=== PATIENT | male | born 1965 | race Caucasian/White ===

== ENCOUNTER 2024-11-18 10:17 | Outpatient (AMB) | payer BC, SELFPAY ==
--- NOTE | 2024-11-18 10:21 | MHC.OFFVIS ---
Vital Signs 11/18/24 10:23 Height 5 ft 11 in Weight 187 lb 2.759 oz BMI 26.1 BP 114/78 Blood Pressure Location Lt brachial Position Sitting Pulse 97 Pulse Source Pulse Oximeter Pulse Oximetry (%) 96 Oxygen Delivery Method Room Air Intake Visit Reasons: Hand arthritis Intake Note: medication not working( works in beginning but then wears offs) Allergies No Known Allergies Allergy (Verified 11/18/24 10:24) HPI HPI Hand arthritis: Details: He is having difficulty with writing. He has also having increased joint pains in his hands. He is using Celebrex 200 mg daily. [facility] Surgical History History of left knee replacement Physical Exam Vital Signs: Last Vital Signs Pulse 97 11/18/24 10:23 BP 114/78 11/18/24 10:23 Pulse Ox 96 11/18/24 10:23 Oxygen Delivery Method Room Air 11/18/24 10:23 BMI result Body Mass Index 26.1 Const Other: General: Comfortable Skin: No lesions seen MSK: Heberden nodes and Chaka's nodes present. He has squaring of CMCs. Tender PIP. He is able to make a fist with his hands. Assessment & Plan Assessment & Plan (1) Osteoarthritis of hands, bilateral: Comment: He is experiencing pain in hands and having difficulty with writing. He also has been experiencing lower back pain treated with cortisone injections without benefit. Code(s): M19.041 - Primary osteoarthritis, right hand; M19.042 - Primary osteoarthritis, left hand Category: Medical Qualifiers: Osteoarthritis type: primary Qualified Code(s): M19.041 - Primary osteoarthritis, right hand; M19.042 - Primary osteoarthritis, left hand Plan: Increase Celebrex 200 mg 2 twice a day Labs for drug monitoring on chronic NSAID ordered Return to clinic in 3 months Orders: Orders Creatinine Today M19.041 - Primary osteoarthritis, right hand, M19.042 - Primary osteoarthritis, left hand Aspartate Amino Transferase Today M19.041 - Primary osteoarthritis, right hand, M19.042 - Primary osteoarthritis, left hand Alanine Aminotransferase Today M19.041 - Primary osteoarthritis, right hand, M19.042 - Primary osteoarthritis, left hand Complete Blood Count Auto Diff Today M19.041 - Primary osteoarthritis, right hand, M19.042 - Primary osteoarthritis, left hand Coding Level of Care Code Est Pt Level 3 (12891) Complex EM visit Add On G2211 Diagnoses Primary osteoarthritis of both hands M19.041; M19.042 Osteoarthritis type: primary
[2024-11-18 10:23] VITALS: BP 114/78; PULSE 97; O2SAT 96; BMI 26.1
== END 2024-11-18 10:49 | disposition home or self-care (01) ==
PROVIDERS: PCP Internal Medicine; Visit Provider Internal Medicine Rheumatology
DX: M19.041 Primary osteoarthritis, right hand (principal); M19.042 Primary osteoarthritis, left hand
CPT/HCPCS: 99213

== ENCOUNTER 2024-11-18 10:17 | Outpatient (REF) | payer BC, SELFPAY ==
--- OUTSIDE RECORDS SUMMARY | 2024-11-18 12:41 | XMS_ITS | Data Portability ---
Author Organization [place] [facility] Sara Londono [place] Address [address] [place] [address] Care Team Providers Care Helicopter Pilot Name Role Phone ESTELA LOPEZ Primary Care Provider [phone] Assessment Encounter Date Assessment Date Assessment LastModified by Organization Details LastModified Time 08/18/2024 08/18/2024 HPI Patient returns to the office today for continued management of his. He reports minimal interval change in his symptoms. He continues to have focal left-sided low back and buttocks pain without radicular symptoms. This is predominantly activity related. He did recently have a knee injection and feels he is walking a bit better However this continues to be limited by discomfort with any increasing or prolonged activity. He Has remained out of work and feels he cannot return to work as his job though not particularly physically demanding Involves a great deal of walking which he cannot tolerate. MRI of the lumbar spine obtained 08/03/2024 reveals multilevel degenerative changes, most significant L3-L4 and L4-L5. Radiologist commented on severe spinal canal as well as foraminal stenosis at the L4-L5 level. EXAM Alert and oriented. Mood/affect appropriate. In no acute distress. He ambulates with a smooth even gait. He is comfortable in a seated position. Well-preserved strength of the bilateral lower extremities. Provocative SI joint tests: Negative pelvic compression, thigh thrust. Positive Evelio HOBSON's PLAN 59-year-old male with lumbar degenerative disc disease. He has well-preserved strength of bilateral lower extremities. He has focal left-sided back/SI joint pain. His condition is largely unchanged. In the absence of persistent back or leg pain, we will continue to defer surgical intervention. He would like to trial injection therapy. Lumbar versus diagnostic SI joint injections could be considered. He will follow-up with us in 2 months. Updated work status provided today. Patient was seen and evaluated by Nidia Burnett PA-C in indirect conjunction with Documenting Provider: Augusto Curtis MD He/She agrees with history, physical examination, tests/diagnostic imaging, and treatment plan. [email or web address] Not available 08/18/2024 10:25:10 08/20/2024 08/20/2024 HPI: Patient presents for 3rd viscosupplementation injection for the treatment of right knee pain. All questions are answered to the patient's satisfaction. He reports that his right knee has already begun to feel better. He still has some discomfort with overuse. Exam: Knee(s) examined to show no sign of infection. Skin is intact. Score of 2 or more on Kellgren Ye scale. Tenderness to palpation of joint line. Distal checks are intact. Assessment/Plan: Knee pain secondary to osteoarthritis. See the attached procedure note. Follow-up in 2 months for recheck. This patient was seen and evaluated by Levon Snowden MS, SANDRA in indirect conjunction with documenting/supervisin g provider Bo Herrera MD. He agrees with history, physical examination, tests/diagnostic imaging, and treatment plan. [email or web address] Not available 08/20/2024 10:43:07 09/15/2024 09/15/2024 59-year-old male status post TKA with Dr. Herrera on 12/13/2023 returns for evaluation of low back pain since approximately April 2024. He was referred to Dr. Rosenberg who is scheduling a lumbar RAFA for September 23, 2024. MRI of the lumbar spine obtained 08/03/2024 reveals multilevel degenerative changes, most significant L3-L4 and L4-L5. Radiologist commented on severe spinal canal as well as foraminal stenosis at the L4-L5 level. He is basically unchanged. He has back pain with leg fatigue when walking. His neurologic exam is unremarkable. He has no lower extremity weakness or tension sign. We discussed options. Will trial 1 or 2 epidural steroid injections. If that does not bring him relief we will have to choose between stoic forbearance or surgical intervention. He will follow-up in 6 weeks. He is given another light duty work note but his employer has been unable to accommodate these restrictions. ---- Return to work on 09/16/24 with the following light duty restrictions: No repetitive bending lifting twisting. No lifting greater than 10 pounds. Limit walking. Not available 09/15/2024 10:01:28 10/23/2024 10/23/2024 59-year-old male with right knee pain. History, examination and x-rays are consistent with advanced osteoarthritis. At present moment his symptoms are relatively improved following a series of Euflexxa viscosupplementation injections. There are some work and insurance considerations that he will have to factor in before deciding to proceed with joint arthroplasty. Follow-up in 4 months. This patient was seen and evaluated by Levon Snowden MS, PA-C in indirect conjunction with documenting/supervisin g provider Bo Herrera MD. He agrees with history, physical examination, tests/diagnostic imaging, and treatment plan. This document was generated using voice recognition software. As a result, there may be unintended spelling, grammatical and/or textual errors. [email or web address] Not available 10/23/2024 10:33:42 10/27/2024 10/27/2024 59-year-old male with known spinal stenosis returns for continued evaluation after a lumbarepidural steroid injection by Dr. Rosenberg on 09/23/2024. He is somewhat better. He still symptomatic with back pain and lower extremity pain with very much wants return to work. He is neurologically intact without tension sign. We discussed options. He will try and return to work. Will follow-up with me as per his request in 3 months to reassess whether or not he needs more invasive care wants to continue to stoically forbear his symptoms. Return to full-time full duty work starting 11/04/2024 This encounter required over 15 minutes of time including chart review, preparation, and documentation, face time with the patient as well as review of other documents and studies. follow up, 09-15-2024 2 month fu low back pain Performed by Augusto Curtis MD, Orthopedic Surgery, Reason for Visit Lumbar Pain Assessment & Plan 59-year-old male status post TKA with Dr. Herrera on 12/13/2023 returns for evaluation of low back pain since approximately April 2024. He was referred to Dr. Rosenberg who is scheduling a lumbar RAFA for September 23, 2024. MRI of the lumbar spine obtained 08/03/2024 reveals multilevel degenerative changes, most significant L3-L4 and L4-L5. Radiologist commented on severe spinal canal as well as foraminal stenosis at the L4-L5 level. He is basically unchanged. He has back pain with leg fatigue when walking. His neurologic exam is unremarkable. He has no lower extremity weakness or tension sign. We discussed options. Will trial 1 or 2 epidural steroid injections. If that does not bring him relief we will have to choose between stoic forbearance or surgical intervention. He will follow-up in 6 weeks. He is given another light duty work note but his employer has been unable to accommodate these restrictions. Not available 10/27/2024 10:39:13 Plan of Treatment Reminders Order Date Submit Date Provider Last Modified By Organization Details Last Modified Time Details Appointments FOLLOW UP 2024 08:45A Kandi SNOWDEN PA-C Not available Not available Not available FOLLOW UP 2024 10:00A M Augusto Curtis MD Not available Not available Not available FOLLOW UP 2024 09:15A M LEVON SNOWDEN PA-C Not available Not available Not available Lab None recorded. Referral intervent ional pain medicine specialis t referral - Lumbar versus diagnosti c SI joint injection 2023 [email or web address] Audrey Rosenberg MD, [address], [place], [address], 11/18/2024 09:05:56 Procedures None recorded. Surgeries None recorded. Imaging None recorded. Medication Orders Euflexxa 10 mg/mL (mw 2.4-3.6 million) intra-art icular syringe 2023 024 [email or web address] [id number], [address] [place], [place], [id number], 08/20/2024 10:55:30 Patient TargetsNo targets recorded. Patient Instructions Encounter Date Encounter Id Patient Instructions Last Modified By Organization Details Last Modified Time 08/18/2024 [id number] work status report* - Return to work on 08/19/24 with the following light duty restrictions: No repetitive bending lifting twisting. No lifting greater than 10 pounds. Limit walking. [email or web address] Not available 08/25/2024 08:44:17 09/15/2024 [id number] work status report* - Return to work on 09/16/24 with the following light duty restrictions: No repetitive bending lifting twisting. No lifting greater than 10 pounds. Limit walking. [email or web address] Not available 09/22/2024 07:58:56 10/27/2024 [id number] work status report* - Return to work on 11/04/2024 [email or web address] Not available 11/03/2024 11:16:45 Reason for Referral Interventional Pain Medicine Specialist Referral for Lumbar spondylosis Lumbar versus diagnostic SI joint injection Referring Physician: Nidia Burnett, Orthopedic Surgery, Encounter Date: 08/18/2024 Results Created Date Observation Date Name Description Value Unit Range Abnormal Flag Note LastModifiedBy Organization Detail LastModifiedTime 08/18/20 24 08/03/2024 MRI, lumba r spine , w/o contr ast No observ ation record ed. [facility] [address] [place], [address], 08/18/2024 10:01:18 08/18/2008/05/2024 MRI, lumba r spine , w/o contr ast No observ ation record ed. [facility] [address] [place], [address], 08/18/2024 10:07:26 Result Notes None recorded. Problems Name Problem SNOMED Code Status Onset Date Resolution Date Notes Provider Name and Address Organization Details Recorded Time Pain of right calf 4619831893379 103 Active 2022 LEVON MARTINEZ PA-C [address] [facility] [address], [place], [address] , [place] [facility] 08:37:18 Osteoarthr itis of left knee joint 0718579622374 09 Active 2022 LEVON MARTINEZ PA-C [address], [place], [place], [address] , [place] [facility] 06:42:48 Arthritis of knee 946123634 Active 2022 Bo Herrera MD [address], [place], [address] , [place] [facility] 09:27:54 Bilateral arthritis of knees 0547405216382 108 Active 2022 LEVON MARTINEZ PA-C [address], [place], [place], [address] , [place] [facility] 08:28:12 Effusion of joint of right knee 6473700018401 04 Active 2022 LEVON MARTINEZ PA-C [address], [place], [place], [address] , [place] [facility] 10:51:12 Effusion of joint 467941465 Active 2022 LEVON MARTINEZ PA-C [address], [place], [place], [address] , [place] [facility] 10:52:27 Arthritis of left knee 8994090350108 104 Active 2023 LEVON SNOWDEN PA-C [address], [place], [address] , [place] [facility] 4 10:29:56 History of left total knee replacemen t 9067998122144 105 Active 2023 LEVON SNOWDEN PA-C [address], [place], [place], [address] , [place] [facility] 10:58:44 Acute low back pain 621603566 Active 2023 Augusto Curtis MD [address], [place], [address] , [place] [facility] 16:08:58 Lumbar spondylosi s 629053653 Active 2023 Augusto Curtis MD [address], [place], [address] , [place] [facility] 11:50:58 Sacroiliac disorder 834459189 Active 2023 NIDIA BURNETT PA-C [address], [place], [address] , [place] [facility] 4 10:25:18 Spinal stenosis of lumbar region 56304597 Active 2023 Augusto Curtis MD [address], [place], [address] , [place] [facility] 10:00:10 Osteoarthr itis of right knee joint 5122760135196 00 Active 2022 LEVON SNOWDEN PA-C [address] [address], [place], [address] , [place] [facility] 10:32:13 Bilateral osteoarthr itis of knees 1116377654842 07 Active 2022 Not Available [facility] 3 11:40:46 Problem Notes None recorded. Procedures Surgical History Date Name Laterality Status Provider Name and Address Organization Details Recorded Time 08/20/20 24 Euflexxa Knee Inj w/US completed LEVON SNOWDEN PA-C [address], [place], [address], [place] [facility] 08/20/2024 10:42:28 08/13/20 24 Euflexxa Knee Inj w/US completed LEVON SNOWDEN PA-C [address], [place], [address], [place] [facility] 08/13/2024 10:32:48 08/06/20 24 Euflexxa Knee Inj w/US completed LEVON SNOWDEN PA-C [address], [place], [address], [place] [facility] 08/06/2024 10:31:59 11/15/19 24 Euflexxa Knee Inj completed Rosalina Marin [place] [facility] 11/15/2023 09:57:04 11/07/20 23 Euflexxa Knee Inj completed BARBARA GUERRA PA-C [address], [place], [address], [place] [facility] 11/07/2023 16:05:37 10/31/20 23 Euflexxa Knee Inj completed LEVON MARTINEZ PA-C [address], [place], [address], [place] [facility] 10/31/2023 10:45:30 09/27/20 23 Knee Joint/Bursa Asp & Inj completed LEVON MARTINEZ PA-C [address], [place], [address], [place] [facility] 10/01/2023 09:18:27 04/30/20 23 Euflexxa Knee Inj completed LEVON MARTINEZ PA-C [address], [place], [address], [place] [facility] 04/30/2023 07:20:21 04/23/20 23 Euflexxa Knee Inj completed LEVON MARTINEZ PA-C [address], [place], [address], [place] [facility] 04/23/2023 11:07:50 04/16/20 23 Euflexxa Knee Inj completed LEVON MARTINEZ PA-C [address], [place], [address], [place] [facility] 04/16/2023 08:54:09 repair of musculotendinous cuff of shoulder completed Rosalina Marin [place] [facility] 09/27/2023 10:40:22 Imaging Results Imaging Date Name Status LastModified by Kevin lopez Details LastModified Time 08/03/2024 MRI, lumbar spine, w/o contrast completed [facility] [address] [place], [address], 08/18/2024 10:01:18 08/05/2024 MRI, lumbar spine, w/o contrast completed [facility] [address] [place], [address], 08/18/2024 10:07:26 Procedure Notes None recorded. Medical Equipment None Reported. Allergies No known drug allergies Medications Name Sig Start Date Stop Date Status Note LastModified by Organization Details LastModified Time Prescriptio n - Prior Authorizati on Request active Not Available Not Available N ot Available celecoxib 200 mg capsule TAKE 1 CAPSULE BY MOUTH TWICE A DAY 08/13 completed Not Available Not Available Not Available atorvastati n 40 mg tablet TAKE 1 TABLET BY MOUTH AT BEDTIME active Not Available Not Available No t Available prednisone 10 mg tablet PLEASE SEE ATTACHED FOR DETAILED DIRECTION S 01/17 completed Not Available Not Available Not Available cetirizine 10 mg tablet TAKE 1 TABLET BY MOUTH EVERY DAY 01/17 completed Not Available Not Available Not Available tizanidine 4 mg tablet TAKE 1 TABLET BY MOUTH EVERY NIGHT AT BEDTIME NEEDED FOR PAIN OR SPASM 08/18 completed Not Available Not Available Not Available meloxicam 15 mg tablet TAKE 1 TABLET BY MOUTH EVERY DAY WITH FOOD 10/10 completed Not Available Not Available Not Available ondansetron HCl 4 mg tablet 01/17 completed Not Available Not Available Not Available cefadroxil 500 mg capsule 01/17 completed Not Available Not Available Not Available losartan 100 mg-hydrochl orothiazide 25 mg tablet TAKE 1 TABLET BY MOUTH EVERY DAY active Not Available Not Available No t Available amoxicillin 875 mg tablet TAKE 1 TABLET BY MOUTH TWICE A DAY DIRECTED UNTIL FINISHED START 1 DAY BEFORE SURGERY 01/17 completed Not Available Not Available Not Available famotidine 20 mg tablet TAKE 1 TABLET BY MOUTH TWICE A DAY 01/17 completed Not Available Not Available Not Available methocarbam ol 750 mg tablet 01/17 completed Not Available Not Available Not Available hydrocortis one 1 % topical cream APPLY TO AFFECTED AREA TWICE A DAY 01/17 completed Not Available Not Available Not Available pantoprazol e 40 mg tablet,dilcia yed release active Not Available Not Available Not Available nicotine 21 mg/24 hr daily transdermal patch APPLY 1 PATCH TOPICALLY ONCE DAILY active Not Available Not Available No t Available gabapentin 300 mg capsule active Not Available Not Available Not Available methylpredn isolone 4 mg tablets in a dose pack FOLLOW PACKAGE DIRECTION S 08/18 completed Not Available Not Available Not Available oxycodone 5 mg tablet TAKE 1 TABLET BY MOUTH EVERY 4 TO 6 HOURS 08/18 completed Not Available Not Available Not Available chlorhexidi ne gluconate 0.12 % mouthwash PLEASE SEE ATTACHED FOR DETAILED DIRECTION S 09/27 completed Not Available Not Available Not Available Euflexxa 10 mg/mL (mw 2.4-3.6 million) intra-artic ular syringe Inject 2 mL by intra-art icular route for 21 days. 2023 active Not Available Not Available Not Avai lable GaviLyte-G 236 gram-22.74 gram-6.74 gram-5.86 gram oral solution TAKE 8 OUNCES BY MOUTH DIRECTED. FOLLOW INSTRUCTI ONS PROVIDED TO YOU BY DOCTORS OFFICE 08/13 completed Not Available Not Available Not Available Paxlovid 300 mg (150 mg x 2)-100 mg tablets in a dose pack 10/31 completed Not Available Not Available Not Available Vitals Date Recorded Body height Body mass index (BMI) Body weight Provider Name and Address Organization Details Last Updated DateTime 08/18/2024 177.8 cm 26.4 kg/m2 [address] [place] [facility] 08/18/2024 09:48:28 Date Recorded Body height Body mass index (BMI) Body weight Provider Name and Address Organization Details Last Updated DateTime 09/15/2024 177.8 cm 26.4 kg/m2 [address] [place] [facility] 09/15/2024 09:50:13 Date Recorded Body height Body mass index (BMI) Body weight Provider Name and Address Organization Details Last Updated DateTime 10/23/2024 177.8 cm 26.4 kg/m2 [address] [place] [facility] 10/23/2024 11:25:34 Social History Question Answer Notes LastModified by Organizat ion Details LastModified Time Tobacco Smoking Status Current Every Day Smoker Rosalina Marin null, [place] [facility] 09/27/2023 10:23:41 What Is Your Level Of Alcohol Consumption? Occasional Information not available 09/27/2023 How Many Times Per Week Do You Consume Alcohol? 1-2 Times Per Week Information not available 09/27/2023 How Much Tobacco Do You Smoke? 1 PPD Information not available 09/27/2023 Do You Use Any Illicit Or Recreational Drugs? No Information not available 09/27/2023 Do You Or Have You Ever Used Any Other Forms Of Tobacco Or Nicotine? No Information not available 09/27/2023 Sex: Unknown Functional Status None recorded. Mental Status None recorded. Family History Relationship Description Onset Age of this Age Resolved Age Notes LastModified by Organization Details LastModified Time Mother Arthritis Not available 09/27/2023 10:28:20 Mother Hypercholest erolemia Not available 2022 10:39:36 Father Arthritis Not available 09/27/2023 10:28:20 Father Family history of malignant neoplasm Not available 2022 10:39:24 Father Hypercholest erolemia Not available 2022 10:39:36 Brother Arthritis Not availabl e 09/27/2023 10:28:20 Medical History Condition Response Heart Disease Y Past Encounters Encounter ID Performer Location Encounter Start Date Encounter Closed Date Diagnosis/Indication Diagnosis SNOMED-CT Code Diagnosis ICD10 Code Diagnosis Note [id number] MD RUTHIE Mota [address] [address] 02/20/2023 15:28:55 03/12/2023 20:12:36 Pain of bilateral knee joints 9305854710 14644 M25.561 M25.562 [id number] MD RUTHIE Mota 299 [facility] [address] [place] [address] 04/16/2023 08:28:24 04/16/2023 09:11:47 Bilateral osteoarthritis of knees 1080674881 84809 M17.0 Osteoarthr itis of right knee joint 9263434143 07180 M17.11 [id number] MD RUTHIE Mota [address] [place] [address] 04/23/2023 13:01:02 04/23/2023 13:52:24 Osteoarthritis of right knee joint 9505124951 98175 M17.11 Bilateral osteoarthritis of knees 4128862749 72401 M17.0 [id number] MD [facility]IE [facility] [address] [place] [address] 04/30/2023 08:12:28 04/30/2023 08:58:35 Osteoarthritis of right knee joint 8807442629 05689 M17.11 Bilateral osteoarthritis of knees 1354205827 51907 M17.0 Pain of right calf 68101 03383 196416 M79.661 [id number] MD RUTHIE [facility]otaformerly [facility] [address] [place] [address] 05/11/2023 10:38:03 05/11/2023 10:57:40 Bilateral osteoarthritis of knees 1882827022 44395 M17.0 Osteoarthr itis of right knee joint 8796353819 61028 M17.11 [id number] MD RUTHIE [facility]otaformerly [facility] [address] [place] [address] 06/12/2023 08:56:41 06/12/2023 09:13:10 Osteoarthritis of right knee joint 1996074031 11049 M17.11 Osteoarthr itis of left knee joint 6681186128 06417 M17.12 [id number] MD RUTHIE [facility]formerly [facility] [address] [place] [address] 06/22/2023 08:40:18 06/22/2023 09:37:48 Pain of left knee joint 3639445605 36702 M25.562 Osteoarthr itis of left knee joint 3972405070 78052 M17.12 Arthritis of knee 570929 002 M13.869 [id number] MD RUTHIE Motadanny [address] [place] [address] 07/24/2023 10:54:05 07/24/2023 11:46:59 Bilateral arthritis of knees 3247706864 665271 M13.861 [id number] MD RUTHIE MotaDreamscape Bluedanny 299 [facility] [address] [place] [address] 09/27/2023 09:55:10 09/27/2023 11:00:23 Osteoarthritis of right knee joint 5690318168 51894 M17.11 Effusion o f joint of right knee 5988308147 93805 M25.461 Right knee effusion Effusion of joint 308383 008 M25.40 [id number] MD RUTHIE Motadanny 299 [facility] [address] [place] [address] 10/10/2023 09:55:43 10/10/2023 10:38:36 Follow-up visit [id number] Z09 [id number] MD RUTHIE [facility] 299 [facility] [address] [place] [address] 10/31/2023 10:23:54 10/31/2023 10:57:26 Osteoarthritis of right knee joint 6026932440 26802 M17.11 [id number] MD RUTHIE Mota [address] [place] [address] 11/07/2023 13:41:50 11/07/2023 14:38:34 Osteoarthritis of right knee joint 9967632506 41415 M17.11 [id number] MD RUTHIE [facility] [address] [place] [address] 11/15/2023 09:53:38 11/15/2023 10:33:11 Osteoarthritis of right knee joint 5419037279 63290 M17.11 [id number] MD RUTHIE [address] [address] 12/06/2023 08:19:51 12/06/2023 14:21:42 Arthritis of left knee 7483499840 673974 M13.862 [id number] MD RUTHIE Motadanny becerra 299 [facility] [address] [place] [address] 12/27/2023 10:15:44 12/27/2023 11:13:58 History of left total knee replacement 8788419599 717812 Z96.652 [id number] MD RUTHIE Mota [facility] [address] [place] [address] 01/18/2024 09:08:22 01/18/2024 09:50:44 Aftercare 415911861 Z47.1 History of left total knee replacement 5630579831 957919 Z96.652 [id number] MD RUTHIE Mota [facility] 299 [facility] [address] [place] [address] 03/20/2024 09:46:35 03/20/2024 10:12:09 History of left total knee replacement 9807053451 164683 Z96.652 [id number] MD RUTHIE Mota [facility] [address] [place] [address] 05/02/2024 09:10:54 05/02/2024 10:11:48 Osteoarthritis of right knee joint 1600503994 43760 M17.11 [id number] Augusto Curtis MD [address] [address] 05/26/2024 15:45:24 05/26/2024 16:17:50 Acute low back pain 340993161 M54.50 Additional diagnosis detail: Acute bilateral low back pain without sciatica [id number] Augusto Curtis MD [address] [address] 06/09/2024 11:14:38 06/09/2024 11:57:31 Acute low back pain [id number] M54.50 Additional diagnosis detail: Acute bilateral low back pain without sciatica History of left total knee replacement [id number] 991988 Z96.652 Lumbar spondylosis 23371 0009 M47.816 [id number] Augusto Curtis MD [address] [address] 07/21/2024 11:17:50 07/21/2024 11:40:02 Acute low back pain 373875190 M54.50 Additional diagnosis detail: Acute bilateral low back pain without sciatica History of left total knee replacement [id number] 408329 Z96.652 Lumbar spondylosis 00582 0009 M47.816 [id number] MD RUTHIE Mota [address] [place] [email or web address] [facility] [place] [address] 08/06/2024 10:09:25 08/06/2024 10:30:42 Osteoarthritis of right knee joint 1744273063 78634 M17.11 Osteoarthr itis of knee 675922164 M17.9 [id number] MD RUTHIE Mota [address] [facility] [place] [address] 08/13/2024 09:53:51 08/13/2024 10:32:35 Osteoarthritis of right knee joint 8304975098 01809 M17.11 [id number] MD COLLINS Alford[address] [address] 08/18/2024 09:47:17 08/18/2024 10:22:19 Acute low back pain 136652052 M54.50 Additional diagnosis detail: Acute bilateral low back pain without sciatica History of left total knee replacement 9613319402 704555 Z96.652 Lumbar spondylosis 21330 0009 M47.816 Sacroiliac disorder 2027 89862 M53.3 [id number] MD RUTHIE Mota 35 [place] [address] 08/20/2024 10:31:21 08/20/2024 10:43:36 Osteoarthritis of right knee joint 2322853549 03639 M17.11 [id number] MD RUTHIE Alford [address] [place] [address] 09/15/2024 09:47:20 09/15/2024 10:03:14 Spinal stenosis of lumbar region 32508935 M48.062 [id number] MD RUTHIE Motadanny becerra 299 [facility] [address] [place] [address] 10/23/2024 10:11:40 10/23/2024 11:23:45 Osteoarthritis of right knee joint 9521854344 30378 M17.11 [id number] MD RUTHIE Alford [place] [address] [facility] [address] [place] [address] 10/27/2024 10:20:29 10/27/2024 10:39:11 Spinal stenosis of lumbar region 58561675 M48.062 Return to full-time full duty work starting 11/04/2024 Health Concerns Section Related Observation LastModified by Organization Detai ls LastModified Time None Recorded Concern Status LastModified by Organization Details LastModified Time None Recorded Advance Directives Directive None Recorded Payers Encounter Date Sequence Insurance Name Policy Number Policy Conway Covered Member ID Conway Member ID Guarantor Name 08/18/2024 1 [place] [id number] Leon Chau Hathaway [id number] Leon Hathaway 08/20/2024 1 [place] [id number] Leon Soira [id number] Leon Hathaway 09/15/2024 1 [place] [id number] Leon Chau Hathaway [id number] Leon Hathaway 10/23/2024 1 [place] [id number] Leon Chau Hathaway [id number] Leon Hathaway 10/27/2024 1 [place] [id number] Leon Chau Hathaway [id number] Leon Hathaway Notes Date Note Type Note Provider Name and Address Organization Details Recorded Time 10/23/2024 text/html 59-year-old male presents for recheck of right knee. His final Euflexxa injection was on August 20, 2024. He reports that it has helped to reduce the severity of his pain down to a manageable degree. He recognizes that he will likely require total joint arthroplasty but is inclined to coexist with his persistent and remaining symptoms at this time. LEVON SNOWDEN PA-C [address] [place] [address],[facility] [address], [place], [address], [place] [facility] 10/23/2024 10:33:59
--- OUTSIDE RECORDS SUMMARY | 2024-11-18 12:41 | XMS_ITS | Continuity of Care Document ---
Author Organization [place] [facility] Sara Londono AONE Baldwyn Address [address] [place] [address] Care Team Providers Care Esl Teacher Name Role Phone ESTELA LOPEZ Primary Care Provider Assessment Encounter Date Assessment Date Assessment LastModified by Organization Details LastModified Time 08/20/2024 08/20/2024 HPI: Patient presents for 3rd [...] treatment plan. [email or web address] Not available 08/20/2024 10:43:07 Plan of Treatment Reminders Order Date Submit Date Provider Last Modified By Organization Details Last Modified Time Details Appointments FOLLOW UP 2024 08:45A M LEVON SNOWDEN PA-C Not available Not available Not available FOLLOW UP 2024 10:00A M Augusto Curtis MD Not available Not available Not available FOLLOW UP 2024 09:15A M LEVON SNOWDEN PA-C Not available Not available Not available Lab None recorded. Referral None recorded. Procedures None recorded. Surgeries None recorded. Imaging None recorded. Medication Orders Euflexxa 10 mg/mL (mw 2.4-3.6 million) intra-art icular syringe 2023 024 [email or web address] [id number], [address] Brittani Cumm[place], [id number], 08/20/2024 10:55:30 Patient TargetsNo targets recorded. Patient InstructionsNo instructions recorded. Reason for Referral None Reported. Results Created Date Observation Date Name Description Value Unit Range Abnormal Flag Note LastModifiedBy Organization Detail LastModifiedTime 08/18/20 24 08/03/2024 MRI, lumba r spine , w/o contr ast No observ ation record ed. [facility] Mri Department [address] [place], [address], 08/18/2024 10:01:18 08/18/20 24 08/05/2024 MRI, lumba r spine , w/o contr ast No observ ation record ed. [facility]ri Department [address] [place], [address], 08/18/2024 10:07:26 Result Notes None recorded. Problems Name Problem SNOMED Code Status Onset Date Resolution Date Notes Provider Name and Address Organization Details Recorded Time Pain of right calf [id number] 103 Active 2022 LEVON MARTINEZ PA-C [address] [facility],[address], [place], [address] , [place] [facility] 3 08:37:18 Osteoarthr itis of left knee joint 1945490292124 09 Active 2022 LEVON MARTINEZ PA-C [address] [facility],[address], [place], [address] , [place] [facility], [facility] 3 06:42:48 Arthritis of knee 929310709 Active 2022 Bo Herrera MD [address] [facility],[address], [place], [address] , [place] [facility], [facility] 3 09:27:54 Bilateral arthritis of knees 0430946538777 108 Active 2022 LEVON MARTINEZ PA-C [address], [place], [address] , [place] [facility], [facility] 3 08:28:12 Effusion of joint of right knee 6805667668899 04 Active 2022 LEVON MARTINEZ PA-C [address], [place], [place], [address] , [place] [facility], [facility] 3 10:51:12 Effusion of joint 305569278 Active 2022 LEVON MARTINEZ PA-C [address], [place], [place], [address] , [place] [facility], [facility] 3 10:52:27 Arthritis of left knee 4880694911066 104 Active 2023 LEVON SNOWDEN PA-C [address], [place], [address] , [place] [facility], [facility] 4 10:29:56 History of left total knee replacemen t 6019195602433 105 Active 2023 LEVON SNOWDEN PA-C [address], [place], [place], [address] , [place] [facility], [facility] 4 10:58:44 Acute low back pain 045897475 Active [address], [place], [address] , [place] [facility], [facility] 4 16:08:58 Lumbar spondylosi s 129553600 Active [address], [place], [address] , [place] [facility], [facility] 4 11:50:58 Sacroiliac disorder 682588475 Active [address], [place], [address] , [place] [facility], [facility] 4 10:25:18 Spinal stenosis of lumbar region 53053064 Active 2023 Augusto Curtis MD [address], [place], [address] , [place] [facility], [facility] 4 10:00:10 Osteoarthr itis of right knee joint 6436310177401 00 Active 2022 LEVON SNOWDEN PA-C [address] [facility],[address], [place], [address] , [place] [facility], [facility] 4 10:32:13 Bilateral osteoarthr itis of knees 0869232607329 07 Active 2022 [facility] Available [facility] 11:40:46 Problem Notes None recorded. Procedures Surgical History Date Name Laterality Status Provider Name and Address Organization Details Recorded Time 08/20/20 24 Euflexxa Knee Inj w/US completed LEVON SNOWDEN PA-C [address], [place], [address], [place] [facility], [facility] 08/20/2024 10:42:28 08/13/20 24 Euflexxa Knee Inj w/US completed LEVON SNOWDEN PA-C [address], [place], [address], [place] [facility], [facility] 08/13/2024 10:32:48 08/06/20 24 Euflexxa Knee Inj w/US completed LEVON SNOWDEN PA-C [address], [place], [address], [place] [facility], [facility] 08/06/2024 10:31:59 11/15/19 24 Euflexxa Knee Inj completed Rosalina Marin [place] - [facility], [facility] 11/15/2023 09:57:04 11/07/20 23 Euflexxa Knee Inj completed BARBARA GUERRA PA-C [address], [place], [address], [place] [facility], [facility] 11/07/2023 16:05:37 10/31/20 23 Euflexxa Knee Inj completed LEVON MARTINEZ PA-C [address], [place], [address], [place] [facility], [facility] 10/31/2023 10:45:30 09/27/20 23 Knee Joint/Bursa Asp & Inj completed LEVON MARTINEZ PA-C [address], [place], [address], [place] [facility], [facility] 10/01/2023 09:18:27 04/30/20 23 Euflexxa Knee Inj completed LEVON MARTINEZ PA-C [address], [place], [address], [place] [facility], [facility] 04/30/2023 07:20:21 04/23/20 23 Euflexxa Knee Inj completed LEVON MARTINEZ PA-C [address], [place], [address], [place] [facility], [facility] 04/23/2023 11:07:50 04/16/20 23 Euflexxa Knee Inj completed LEVON MARTINEZ PA-C [address], [place], [address], [place] [facility], [facility] 04/16/2023 08:54:09 repair of musculotendinous cuff of shoulder completed Rosalina Marin [place] - [facility], [facility] 09/27/2023 10:40:22 Imaging Results None recorded. Procedure Notes None recorded. Medical Equipment None [...] Not Available Not Available Not Available Vitals None Recorded Social History Question Answer Notes LastModified by Organizat ion Details LastModified Time Tobacco Smoking Status Current Every Day Smoker Rosalina Marin [place], [place] - [facility], [facility] 09/27/2023 10:23:41 What Is Your Level [...] SNOMED-CT Code Diagnosis ICD10 Code Diagnosis Note [id number] Augusto Curtis MD [address] [address] 07/21/2024 11:17:50 07/21/2024 11:40:02 Acute low back pain 398706932 M54.50 Additional diagnosis detail: Acute bilateral low back pain without sciatica History of left total knee replacement 7760317955 952641 Z96.652 Lumbar spondylosis 58043 0009 M47.816 [id number] MD RUTHIE Mota [address] [place] [address] 08/06/2024 10:09:25 08/06/2024 10:30:42 Osteoarthritis of right knee joint 1268804627 26000 M17.11 Osteoarthr itis of knee 305186263 M17.9 [id number] MD RUTHIE Mota [address] [place] [address] 08/13/2024 09:53:51 08/13/2024 10:32:35 Osteoarthritis of right knee joint 4025985428 93610 M17.11 [id number] MD RUTHIE Alford [address] [place] [address] 08/18/2024 09:47:17 08/18/2024 10:22:19 Acute low back pain 071260626 M54.50 Additional diagnosis detail: Acute bilateral low back pain without sciatica History of left total knee replacement 2052424891 196381 Z96.652 Lumbar spondylosis 24941 0009 M47.816 Sacroiliac disorder 2027 11105 M53.3 [id number] MD RUTHIE Mota [address] [place] [address] 08/20/2024 10:31:21 08/20/2024 10:43:36 Osteoarthritis of right knee joint 1526020822 56216 M17.11 Health Concerns Section Related Observation LastModified by Organization Detai ls LastModified Time None Recorded Concern Status LastModified by Organization Details LastModified Time None Recorded Payers Encounter Date Sequence Insurance Name Policy Number Policy Conway Covered Member ID Conway Member ID Guarantor Name 08/20/2024 1 [place] ([place]) [id number] Leon Hathaway [id number] Leon Hathaway
--- OUTSIDE RECORDS SUMMARY | 2024-11-18 12:41 | XMS_ITS ---
Author Name [facility] Organization Unknown History of Medication Use Medication Directions Dispensed Refills Start Date End Date Status gabapentin 300 mg capsule 11/11/99 active celecoxib (CeleBREX) 200 mg capsule Take 1 capsule (200 mg total) by mouth 1 (one) time each day if needed. 4 11/11/99 active turmeric/turmeric ext/pepr ext (turmeric-turmeric ext-pepper) 500-3 mg capsule Take 1 tablet by mouth 1 (one) time each day. 4 11/11/99 active nicotine (NICODERM CQ) 21 mg/24 hr APPLY 1 PATCH TOPICALLY ONCE DAILY 4 11/11/99 active tiZANidine (ZANAFLEX) 4 mg tablet TAKE 1 TABLET BY MOUTH EVERY NIGHT AT BEDTIME NEEDED FOR PAIN OR SPASM 4 11/11/99 aborted pantoprazole (PROTONIX) 40 mg EC tablet 4 11/11/99 active ibuprofen (ADVIL,MOTRIN) 200 mg tablet Take by mouth every 6 (six) hours if needed. 11/11/99 active gabapentin (NEURONTIN) 300 mg capsule Take 1 capsule (300 mg total) by mouth 3 (three) times a day. 4 11/11/99 active losartan-hydroCHLOROthi azide (HYZAAR) 100-25 mg per tablet Take 1 tablet by mouth 1 (one) time each day. 11/11/99 active methocarbamoL (ROBAXIN) 750 mg tablet 4 11/11/99 aborted atorvastatin (LIPITOR) 40 mg tablet Take 1 tablet (40 mg total) by mouth 1 (one) time each day. 4 11/11/99 99 active No known medications No known medications 4 11/11/99 active senna-docusate (PERICOLACE) 8.6-50 MG Take 1 tablet by mouth 2 (two) times a day. 4 11/11/99 99 aborted methocarbamol (ROBAXIN) 750 MG tablet Take 1 tablet (750 mg total) by mouth 3 (three) times a day as needed. 4 11/11/99 99 aborted ondansetron (Zofran) 4 MG tablet Take 1 tablet (4 mg total) by mouth daily as needed. 4 11/11/99 99 aborted aspirin 81 MG EC tablet Take 1 tablet (8 1 mg total) by mouth 2 (two) times a day after meals. 4 11/11/99 99 aborted cefadroxil (DURICEF) 500 MG capsule Take 1 capsule (500 mg total) by mouth 2 (two) times a day. 4 11/11/99 99 aborted oxyCODONE (ROXICODONE) 5 MG immediate release tablet Take 1 tablet (5 mg total) by mouth every 4 (four) hours as needed. 4 11/11/99 99 aborted hydrocortisone 1 % cream 2 (two) times a day as needed. 4 11/11/99 99 active acetaminophen (TYLENOL EXTRA STRENGTH) 500 MG tablet Take 2 tablets (1,000 mg total) by mouth every 8 (eight) hours. 4 11/11/99 99 aborted ondansetron HCl 4 mg tablet 4 completed cefadroxil 500 mg capsule 4 completed pantoprazole 40 mg tablet,delayed release 4 active tizanidine 4 mg tablet TAKE 1 TABLET BY MOUTH EVERY NIGHT AT BEDTIME NEEDED FOR PAIN OR SPASM 4 active methocarbamol 750 mg tablet 4 completed oxycodone 5 mg tablet TAKE 1 TABLET BY MOUTH EVERY 4 TO 6 HOURS 4 active prednisone 10 mg tablet PLEASE SEE ATTACHED FOR DETAILED DIRECTIONS 3 completed ondansetron HCl 4 mg tablet 4 completed nicotine 21 mg/24 hr daily transdermal patch APPLY 1 PATCH TOPICALLY ONCE DAILY 3 active celecoxib (CeleBREX) 200 MG capsule Take 1 capsule (200 mg total) by mouth daily. 4 active atorvastatin 40 mg tablet TAKE 1 TABLET BY MOUTH AT BEDTIME 3 active cetirizine 10 mg tablet TAKE 1 TABLET BY MOUTH EVERY DAY 3 completed chlorhexidine gluconate 0.12 % mouthwash PLEASE SEE ATTACHED FOR DETAILED DIRECTIONS 3 completed methocarbamol 750 mg tablet 4 completed GaviLyte-G 236 gram-22.74 gram-6.74 gram-5.86 gram oral solution TAKE 8 OUNCES BY MOUTH DIRECTED. FOLLOW INSTRUCTIONS PROVIDED TO YOU BY DOCTORS OFFICE 3 active Euflexxa 10 mg/mL (mw 2.4-3.6 million) intra-articular syringe Inject 2 mL by intra-articular route for 21 days. 3 active Turmeric 500 MG CAPS Take 1 tablet by mouth daily. 4 active atorvastatin 40 mg tablet TAKE 1 TABLET BY MOUTH AT BEDTIME 3 active oxycodone 5 mg tablet TAKE 1 TABLET BY MOUTH EVERY 4 TO 6 HOURS 4 active chlorhexidine gluconate 0.12 % mouthwash PLEASE SEE ATTACHED FOR DETAILED DIRECTIONS 3 completed Prescription - Change 3 active famotidine 20 mg tablet TAKE 1 TABLET BY MOUTH TWICE A DAY 3 completed meloxicam 15 mg tablet TAKE 1 TABLET BY MOUTH EVERY DAY WITH FOOD 3 completed hydrocortisone 1 % topical cream APPLY TO AFFECTED AREA TWICE A DAY 3 active cefadroxil 500 mg capsule 4 completed celecoxib 200 mg capsule TAKE 1 CAPSULE BY MOUTH TWICE A DAY WITH FOOD. REPLACES MELOXICAM. 3 active prednisone 10 mg tablet PLEASE SEE ATTACHED FOR DETAILED DIRECTIONS 3 active amoxicillin 875 mg tablet TAKE 1 TABLET BY MOUTH TWICE A DAY DIRECTED UNTIL FINISHED START 1 DAY BEFORE SURGERY 3 completed famotidine 20 mg tablet TAKE 1 TABLET BY MOUTH TWICE A DAY 3 active meloxicam 15 mg tablet TAKE 1 TABLET BY MOUTH EVERY DAY WITH FOOD 3 completed losartan-hydrochlorothi azide (HYZAAR) 100-25 MG per tablet Take 1 tablet by mouth daily. 4 active hydrocortisone 1 % cream 2 (two) times a day as needed. 4 active losartan 100 mg-hydrochlorothiazide 25 mg tablet TAKE 1 TABLET BY MOUTH EVERY DAY 3 active atorvastatin (LIPITOR) tablet 40 mg Take 1 tablet (40 mg total) by mouth daily. 4 active hydrocortisone 1 % topical cream APPLY TO AFFECTED AREA TWICE A DAY 3 completed nicotine 21 mg/24 hr daily transdermal patch APPLY 1 PATCH TOPICALLY ONCE DAILY 3 active pantoprazole 40 mg tablet,delayed release 4 active cetirizine 10 mg tablet TAKE 1 TABLET BY MOUTH EVERY DAY 3 active GaviLyte-G 236 gram-22.74 gram-6.74 gram-5.86 gram oral solution TAKE 8 OUNCES BY MOUTH DIRECTED. FOLLOW INSTRUCTIONS PROVIDED TO YOU BY DOCTORS OFFICE 3 active nicotine (NICODERM CQ) 21 MG/24HR APPLY 1 PATCH TOPICALLY ONCE DAILY 4 active amoxicillin 875 mg tablet TAKE 1 TABLET BY MOUTH TWICE A DAY DIRECTED UNTIL FINISHED START 1 DAY BEFORE SURGERY 3 active losartan 100 mg-hydrochlorothiazide 25 mg tablet TAKE 1 TABLET BY MOUTH EVERY DAY 3 active methylprednisolone 4 mg tablets in a dose pack TAKE 6 TABLETS ON DAY 1 DIRECTED ON PACKAGE AND DECREASE BY 1 TAB EACH DAY FOR A TOTAL OF 6 DAYS 3 completed celecoxib 200 mg capsule TAKE 1 CAPSULE BY MOUTH TWICE A DAY WITH FOOD. REPLACES MELOXICAM. 3 active ibuprofen 600 MG tablet Take 1 tablet (600 mg total) by mouth every 6 (six) hours as needed for pain. 4 aborted Euflexxa 10 mg/mL (mw 2.4-3.6 million) intra-articular syringe Inject 2 mL by intra-articular route for 21 days. 3 active Problems Problem Status Onset Date Problem Type Date of Resolution Source Poor dentition active 2023-12-03 ProblemAct CTT HNEMG History of hyperlipidemia active 2023-12-03 ProblemAct [facility]NEM[facility] Osteoarthritis of left hip active 2023-12-03 ProblemAct [facility] Lumbar radiculopathy active 2024-09-02 ProblemAct [facility] History of hypertension active 2023-12-03 ProblemAct [facility] At risk for sleep apnea active 2023-12-03 ProblemAct [facility] Smoking active 2023-12-03 ProblemAct [facility] Spinal stenosis of lumbar region with neurogenic claudication active 2024-09-02 ProblemAct [facility] Lumbar pain active EncounterDiagnosisAct [facility]THNEMG Lumbar radiculitis active EncounterDiagnosisAct CT_THSFRAN Spinal stenosis, lumbar region, with neurogenic claudication active EncounterDiagnosisAct CT_THS JOSE History of left total knee replacement active 2023-12-27 ProblemAct E[facility]_AONECT Acute low back pain active 2024-05-26 ProblemAct [facility] Spinal stenosis of lumbar region active 2024-09-15 ProblemAct [facility] Pain of right calf active 2023-04-30 ProblemAct [facility] Lumbar spondylosis active 2024-06-09 ProblemAct [facility] Arthritis of knee active 2023-06-22 ProblemAct [facility] Effusion of joint active 2023-09-27 ProblemAct [facility] Bilateral osteoarthritis of knees active 2023-04-23 ProblemAct [facility] Arthritis of left knee active 2023-12-06 ProblemAct [facility] Effusion of joint of right knee active 2023-09-27 ProblemAct [facility] Osteoarthritis of right knee joint active 2023-04-23 ProblemAct [facility] Osteoarthritis of left knee joint active 2023-06-12 ProblemAct [facility] Sacroiliac disorder active 2024-08-18 ProblemAct [facility] Bilateral arthritis of knees active 2023-07-26 ProblemAct [facility]
[2024-11-18 18:04] LABS: MANUAL DIFF FLAG NO
[2024-11-18 18:08] LABS: Basophils Absolute Auto 0.1 X10*3/uL (0.0-0.2); Basophils Percent Auto 0.8 % (0-2); Eosinophils Absolute Auto 0.2 X10*3/uL (0.0-0.4); Eosinophils Percent Auto 2.2 % (0-4); Hematocrit 43.3 % (42.0-52.0); Imm Gran Abs Auto 0.01 X10*3/uL (0.00-0.03); Imm Gran Pct Auto 0.1 % (0.0-0.4); Lymphocytes Absolute Auto 2.1 X10*3/uL (1.2-4.9); Lymphocytes Percent Auto 27.5 % (20-40); Mean Corpuscular HGB Conc 34.6 g/dl (31.0-36.0); Mean Corpuscular Hemoglobin 31.9 pg (27.0-33.0); Mean Corpuscular Volume 92.1 fL (80.0-98.0); Mean Platelet Volume 10.6 fL (9.4-12.4); Monocytes Absolute Auto 0.5 X10*3/uL (0.1-1.2); Monocytes Percent Auto 6.4 % (2-11); Neutrophils Absolute Auto 4.8 x10*3/uL (2.0-8.3); Platelet Count 229 X10*3/uL (160-400); Red Cell Distribution Width 12.7 % (11.0-16.0); White Blood Count 7.6 X10*3/uL (4.8-10.8)
[2024-11-18 18:32] LABS: Alanine Aminotransferase 22 U/L (0-40); Aspartate Amino Transferase 25 U/L (5-37); Estimated Glomerular Filt Rate > 60
== END 2024-11-18 10:18 | disposition home or self-care (01) ==
LOC: HO.HKASLDS 10:17
PROVIDERS: PCP Internal Medicine; Visit Provider Internal Medicine Rheumatology
DX: M19.041 Primary osteoarthritis, right hand (principal); M19.042 Primary osteoarthritis, left hand
CPT/HCPCS: 36415; 82565; 84450; 84460; 85025

== ENCOUNTER 2025-02-17 10:13 | Outpatient (AMB) | payer BC, SELFPAY ==
--- NOTE | 2025-02-17 10:17 | MHC.OFFVIS ---
Vital Signs 02/17/25 10:19 Height 5 ft 11 in Weight 183 lb 6.793 oz BMI 25.6 BP 140/80 H Pulse 86 Pulse Source Pulse Oximeter Pulse Oximetry (%) 98 Oxygen Delivery Method Room Air Intake Visit Reasons: 3 mo follow up Intake Note: Patients presents today for Osteoarthritis of hands. Pt states that his hands are sore espeacially his thumbs. Allergies No Known Allergies Allergy (Verified 02/17/25 10:23) HPI HPI 3 mo follow up: Details: Pain in thumbs started after he returned back to work. Experiencing pain in bilateral 1st MTPs. He has noted benefit with taking Celebrex 200 mg twice a day. He is experiencing pain described as paraesthesia from upper arm radiating downward. He had an MRI C-spine for further evaluation and will be following up with his doctor in a week. No nerve conduction study was ordered. [facility] Surgical History History of left knee replacement Physical Exam Vital Signs: Last Vital Signs Pulse 86 02/17/25 10:19 BP 140/80 H 02/17/25 10:19 Pulse Ox 98 02/17/25 10:19 Oxygen Delivery Method Room Air 02/17/25 10:19 BMI result Body Mass Index 25.6 Const Other: General: Comfortable Skin: No lesions seen MSK: Heberden nodes and Chaka's nodes present. He has squaring of CMCs. Tender bilateral first MCPs, multiple PIPs and DIPs. He is able to make a fist with his hands. Assessment & Plan Assessment & Plan (1) Osteoarthritis of hands, bilateral: Comment: He is experiencing pain in hands and having difficulty with writing. Most of his pain is localized to bilateral 1st MCPs since he started working again due to OA flare. Code(s): M19.041 - Primary osteoarthritis, right hand; M19.042 - Primary osteoarthritis, left hand Category: Medical Qualifiers: Osteoarthritis type: primary Qualified Code(s): M19.041 - Primary osteoarthritis, right hand; M19.042 - Primary osteoarthritis, left hand Plan: Patient received bilateral 1st MCP cortisone injections Continue Celebrex 200 mg twice a day Labs for drug monitoring every 6 months. He will be due for labs next visit. Letter for work given to patient Follow-up bilateral hand x-rays ordered to evaluate for progression of osteoarthritis. [facility]. Return to clinic in 3 months Orders: Orders XR hand LT min 3V Today M19.041 - Primary osteoarthritis, right hand, M19.042 - Primary osteoarthritis, left hand AMB Joint Injection/Aspiration Today M19.041 - Primary osteoarthritis, right hand, M19.042 - Primary osteoarthritis, left hand XR hand RT min 3V Today M19.041 - Primary osteoarthritis, right hand, M19.042 - Primary osteoarthritis, left hand AMB Joint Injection/Aspiration Today M19.041 - Primary osteoarthritis, right hand, M19.042 - Primary osteoarthritis, left hand Medications: New lidocaine (PF) 2.5 mg (0.25 mL) Infiltration ONCE 0.25 mL 0RF M19.041 - Primary osteoarthritis, right hand, M19.042 - Primary osteoarthritis, left hand lidocaine (PF) 2.5 mg (0.25 mL) Infiltration ONCE 0.25 mL 0RF M19.041 - Primary osteoarthritis, right hand, M19.042 - Primary osteoarthritis, left hand Kenalog (triamcinolone acetonide) 10 mg (0.25 mL) intra-articular ONCE 0.25 mL 0RF NS M19.041 - Primary osteoarthritis, right hand, M19.042 - Primary osteoarthritis, left hand Kenalog (triamcinolone acetonide) 10 mg (0.25 mL) intra-articular ONCE 0.25 mL 0RF NS M19.041 - Primary osteoarthritis, right hand, M19.042 - Primary osteoarthritis, left hand Changed From celecoxib (Celebrex) 200 mg PO BID 60 caps 2RF To celecoxib (Celebrex) Take with food. 200 mg PO BID 180 caps 0RF 90 days Coding Level of Care Code Est Pt Level 3 (47926) Complex EM visit Add On G2211 Diagnoses Primary osteoarthritis of both hands M19.041; M19.042 Osteoarthritis type: primary
[2025-02-17 10:19] VITALS: BP 140/80; PULSE 86; O2SAT 98; BMI 25.6
--- OUTSIDE RECORDS SUMMARY | 2025-02-17 11:59 | XMS_ITS | Clinical Summary ---
Author Organization [facility] Address [address] [place] [address] Phone Care Team Providers Care Solar Panel Installation Supervisor Name Role Phone Tomasz Winchester MD Primary Care Provider [phone] Allergies No known active allergies Medications atorvastatin (LIPITOR) 40 mg tablet Take 1 tablet (40 mg total) by mouth 1 (one) time each day. 3 Active losartan-hydroCHL OROthiazide (HYZAAR) 100-25 mg per tablet Take 1 tablet by mouth 1 (one) time each day. 3 Active celecoxib (CeleBREX) 200 mg capsule Take 1 capsule (200 mg total) by mouth 1 (one) time each day if needed. 3 Active ibuprofen (ADVIL,MOTRIN) 200 mg tablet Take by mouth every 6 (six) hours if needed. Active turmeric/turmeric ext/pepr ext (turmeric-turmeri c ext-pepper) 500-3 mg capsule Take 1 tablet by mouth 1 (one) time each day. Active pantoprazole (PROTONIX) 40 mg EC tablet Active nicotine (NICODERM CQ) 21 mg/24 hr APPLY 1 PATCH TOPICALLY ONCE DAILY Active gabapentin (NEURONTIN) 300 mg capsuleIndication s:Lumbar radiculitis,Spina l stenosis, lumbar region, with neurogenic claudication Take 1 capsule (300 mg total) by mouth 3 (three) times a day. 90 capsule 2 4 Active Surgical History Surgery Date Site/Laterality Comments ROTATOR CUFF REPAIR 1999 Right PROCEDURE:ROTATOR CUFF REPAIR ROTATOR CUFF REPAIR 2000 Left PROCEDURE:ROTATOR CUFF REPAIR VASECTOMY 1992 PROCEDURE:VASECTOMY OTHER SURGICAL HISTORY PROCEDURE:ANAL FISSURECTOMY COLONOSCOPY PROCEDURE:COLONOSCOPY DENTAL SURGERY 10/23/2023 PROCEDURE:DENTAL SURGERY;COMMENT:Deep cleaning due to Gum Infection OTHER SURGICAL HISTORY 12/13/2023 PROCEDURE:left knee;COMMENT:TKR surgery JOINT REPLACEMENT Left knee Medical History Medical History Date Comments Hypertension DX:Hypertension Hyperlipidemia DX:Hyperlipidemi a Osteoarthritis DX:Osteoarthriti s Periodontitis DX:Periodontitis ;COMMENT:Deep cleaning , ABX Tx Family History Medical History Relation Name Comments Hyperlipidemia Brother Hypertension Brother Diabetes Father Hyperlipidemia Father Hypertension Father Stroke Father Dementia Mother Relation Name Status Comments Brother Alive Father Alive Mother Alive Sister (Age 1) respiratory illness Social History Tobacco Use Types Packs/Day Years Used Date Smoking Tobacco: Every Day Cigarettes 0.5 49.3 Started: 11/12/1975 Smokeless Tobacco: Never Tobacco Cessation:Ready to Q uit: Not Asked; Counseling Given: Not Answered Alcohol Use Standard Drinks/Week Comments Not Currently 0 (1 standard drink = 0.6 oz pur e alcohol) occasional Housing Instability Answer Date Recorde d Are you worried that in the next 2 months you may not have stable housing? No 09/23/2024 Food Access & Nutrition Answer Date Rec orded Do you have access to a vari ety of food including fruits and vegetables? Yes 09/23/2024 Transportation Answer Date Recorded Has the lack of transportati on kept you from meetings, work, or from getting things needed for daily living? No Has the lack of transportati on kept you from medical appointments or from getting medications? No 09/23/2024 Living Situation Answer Date Recorded What is your living situation? 1 11/23/2023 Interpersonal Safety Answer Date Record ed Physical Abuse 09/23/2024 Verbal Abuse 09/23/2024 Sex and Gender Information Value Date Recorded Sex Assigned at Male 09/17/2024 12:40 PM EST Legal Sex Male 2:57 AM EST Gender Identity Male 09/16/2024 9:02 AM EST Sexual Orientation Straight 09/17/2024 12 :40 PM EST Obstetrics History Last Filed Vital Signs Vital Sign Reading Time Taken Comments Blood Pressure 144/87 10/16/2024 1:59 PM EST Pulse 82 10/16/2024 1:59 PM EST Temperature 36.7 ??C (98.1 ??F) 09/23/2024 12:[address] Respiratory Rate 18 09/23/2024 12:33 PM EST Oxygen Saturation 94% 09/23/2024 12:33 PM EST Inhaled Oxygen Concentration - - Weight 85.3 kg (188 lb) 10/16/2024 1:59 PM EST Height 180.3 cm (5' 11 ) 10/16/2024 1:59 PM EST Body Mass Index 26.22 10/16/2024 1:59 PM EST Plan of Treatment Health Maintenance Due Date Last Done Comments Diabetes: Annual Foot Exam 1973 Diabetes: Annual Retina Eye Exam 1973 DTaP,Tdap,and Td Vaccines (1 - Tdap) 1982 Pneumococcal Vaccine: 50+ Years (1 of 2 - PCV) 1982 Pneumococcal Vaccine: Pediatrics (0 to 5 Years) and At-Risk Patients (6 to 64 Years) (1 of 2 - PCV) 1982 Cholesterol Screening (Lipid Panel) 10/15/2022 Colorectal Cancer Screening: Colonoscopy 10/15/2022 Depression Screening 10/15/2022 HIV Screening 10/15/2022 Hepatitis C Screening 10/15/2022 Lung Cancer Screening (Low Dose CT) 10/15/2022 Diabetes: Annual Urine Albumin-Creatinine Ratio (uACR) 09/23/2024 Diabetes: Blood Sugar Control Test (HGBA1C) 04/23/2025 10/23/2024 Social Influencers of Health Screening 09/23/2025 09/23/2024 Diabetes: Annual GFR (Glomerular Filtration Rate) 10/23/2025 10/23/2024 Hypertension/CHF/CAD Annual BMP Blood Test 10/23/2025 10/23/2024 RSV Immunization Adult Patients (1 - 1-dose 75+ series) 2038 Zoster Vaccines Completed 01/19/2024, 09/12, 07/15/2020 COVID-19 Vaccine Completed 10/17/2024, 12/2023, 03/18/2022, Additional history exists Influenza Vaccine Completed 10/17/2024, , 09/17/2022, Additional history exists HIB Vaccines Aged Out No longer eligi ble based on patient's age to complete this topic HPV Vaccines Aged Out No longer eligi ble based on patient's age to complete this topic Hepatitis A Vaccines Aged Out No long er eligible based on patient's age to complete this topic Hepatitis B Vaccines Aged Out No long er eligible based on patient's age to complete this topic IPV Vaccines Aged Out No longer eligi ble based on patient's age to complete this topic MMR Vaccines Aged Out No longer eligi ble based on patient's age to complete this topic Meningococcal ACWY Vaccine Aged Out N o longer eligible based on patient's age to complete this topic Meningococcal B Vaccine Aged Out No l onger eligible based on patient's age to complete this topic RSV Immunization Patients Under 20 months Aged Out No longer eligible based on patient's age to complete this topic Varicella Vaccines Aged Out No longer eligible based on patient's age to complete this topic Medical Devices Implanted Type Area Supervisor Fishing Device Identifier Shelf Expiration Date Model / Serial / Lot Tibial Bearing Insert Cr Sz 5 10mm Stry-How [id number] Implanted:Qty: 1 on 12/13/2023 by Bo Herrera MD Left: Knee [employer] 10/15/2028 5530-G-510 -E / / [id number] Knee Fem Bsplt W Pa Stry-How [id number] Implanted:Qty: 1 on 12/13/2023 by Bo Herrera MD Left: Knee [employer] 08/13/2028 5517-F-501 / / [id number] Knee Bsplt Triathlon Ti Sz 5 Stry-How [id number] Implanted:Qty: 1 on 12/13/2023 by Bo Herrera MD Left: Knee [employer] 10/06/2028 5536-B-500 / / [id number] Procedures Procedure Name Priority Date/Time Associated Diagnosis Comments COMPREHENSIVE METABOLIC PANEL Routine 10/23/2024 10:51 AM EST Anemia, unspecified Routine general medical examination at a health care facility Blood glucose elevated Acute arthritis Fatigue HEMOGLOBIN A1C Routine 10/23/2024 10:51 AM EST Anemia, unspecified Routine general medical examination at a health care facility Blood glucose elevated Acute arthritis Fatigue from Last 3 Months or Most Recently Relevant to Health Maintenance Results * (ABNORMAL) Hemoglobin A1c (10/23/2024 10:51 AM EST) Hemoglobin A1C 6.7(H) <6.5 % LAB CHEMISTRY METHOD 10/23/2024 2:25 PM EST [facility] Mean Bld Glu Estim. 146 mg/dL LAB CHEMISTRY METHOD 10/23/2024 2:25 PM EST [facility] Blood Venous blood specimen / Unknown Venipuncture / Unknown 10/23/2024 10:51 AM EST 10/23/2024 11:30 AM EST us Tomasz Winchester MD LAB BLOOD ORDERABLES Final Res ult [facility] [address] [place] [address], * (ABNORMAL) Comprehensive metabolic panel (10/23/2024 10:51 AM EST) Pathologist [facility] Sodium 139 133 - 145 mmol/L LAB CHEMISTRY METHOD 10/23/2024 1:37 PM [facility] Potassium 3.7 3.5 - 5.5 mmol/L LAB CHEMISTRY METHOD 10/23/2024 1:37 PM [facility] Chloride 105 96 - 110 mmol/L LAB CHEMISTRY METHOD 10/23/2024 1:37 PM [facility] CO2 25 21 - 32 mmol/L LAB CHEMISTRY METHOD 10/23/2024 1:37 PM EST [facility] Anion Gap 9 3 - 11 LAB CHEMISTRY METHOD 10/23/2024 1:37 PM [facility] Glucose 100 70 - 100 mg/dL LAB CHEMISTRY METHOD 10/23/2024 1:37 PM [facility] BUN 16 5 - 25 mg/dL LAB CHEMISTRY METHOD 10/23/2024 1:37 PM [facility] Creatinine 0.69(L) 0.70 - 1.30 mg/dL LAB CHEMISTRY METHOD 10/23/2024 1:37 PM [facility] eGFR 105 >=60 mL/min/1. 73m2 LAB CHEMISTRY METHOD 10/23/2024 1:37 PM [facility] Comment:Calculation based on the??Chronic Kidney Disease Epidemiology Collaboration (CKD-EPI) equation refit??without adjustment for race. BUN/Creatinine Ratio 23.2 LAB CHEMISTRY METHOD 10/23/2024 1:37 PM [facility] Calcium 9.4 8.5 - 10.5 mg/dL LAB CHEMISTRY METHOD 10/23/2024 1:37 PM [facility] AST (SGOT) 18 10 - 42 unit/L LAB CHEMISTRY METHOD 10/23/2024 1:37 PM [facility] ALT (SGPT) 30 10 - 60 unit/L LAB CHEMISTRY METHOD 10/23/2024 1:37 PM [facility] Alkaline Phosphatase 86 42 - 121 unit/L LAB CHEMISTRY METHOD 10/23/2024 1:37 PM [facility] Total Protein 7.0 6.0 - 8.0 g/dL LAB CHEMISTRY METHOD 10/23/2024 1:37 PM [facility] Albumin 4.2 3.2 - 5.0 g/dL LAB CHEMISTRY METHOD 10/23/2024 1:37 PM [facility] Total Bilirubin 0.5 0.0 - 1.4 mg/dL LAB CHEMISTRY METHOD 10/23/2024 1:37 PM [facility] Blood Venous blood specimen / Unknown Venipuncture / Unknown 10/23/2024 10:51 AM EST 10/23/2024 11:32 AM EST us Tomasz Winchester MD LAB BLOOD ORDERABLES Final Res ult [facility] [address] [place] [address], from Last 3 Months or Most Recently Relevant to Health Maintenance Insurance [facility] Care Teams Solar Panel Installation Supervisor Relationship Specialty Start Date End Date Tomasz Winchester MD [address] [place] [address] PCP - General 01/04/23
--- OUTSIDE RECORDS SUMMARY | 2025-02-17 11:59 | XMS_ITS | Clinical Summary ---
Author Organization [facility] Address [address] [place] [address] Care Team Providers Care Manager Simulation Name Role Phone Tomasz Winchester MD Primary Care Provider [phone] Allergies No known active allergies Medications Medication Sig Dispensed Refills Start Date End Date Status atorvastatin (LIPITOR) tablet 40 mg Take 1 tablet (40 mg total) by mouth daily. 0 07/16/2023 Active losartan-hydrochlorot hiazide (HYZAAR) 100-25 MG per tablet Take 1 tablet by mouth daily. 0 07/16/2023 Active Turmeric 500 MG CAPS Take 1 tablet by mouth daily. 0 Active celecoxib (CeleBREX) 200 MG capsule Take 1 capsule (200 mg total) by mouth daily. 0 09/26/2023 Active hydrocortisone 1 % cream 2 (two) times a day as needed. 0 Active nicotine (NICODERM CQ) 21 MG/24HR APPLY 1 PATCH TOPICALLY ONCE DAILY 0 Active Active Problems Problem Noted Date Diagnosed Date Lumbar radiculopathy 09/02/2024 Spinal stenosis of lumbar re gion with neurogenic claudication 09/02/2024 At risk for sleep apnea 12/03/2023 Smoking 12/03/2023 Poor dentition 12/03/2023 Osteoarthritis of left hip 12/03/2023 History of hyperlipidemia 12/03/2023 History of hypertension 12/03/2023 Family History Medical History Relation Name Comments Hyperlipidemia Brother Hypertension Brother Diabetes Father Hyperlipidemia Father Hypertension Father Stroke Father Dementia Mother Relation Name Status Comments Brother Alive Father Alive Mother Alive Sister (Age 1) respiratory illness Social History Tobacco Use Types Packs/Day Years Used Date Smoking Tobacco: Every Day Cigarettes 44 Started: 1975 Smokeless Tobacco: Never Tobacco Cessation:Ready to Q uit: Not Asked; Counseling Given: Not Answered Comments:Pt attempting to wean off cigarettes now only smoking 4-5 per day. Alcohol Use Standard Drinks/Week Comments Yes 14 (1 standard drink = 0.6 oz pu re alcohol) Sex and Gender Information Value Date Recorded Sex Assigned at Male 11/21/2023 8:16 AM EST Gender Identity Male 11/21/2023 8:16 AM EST Sexual Orientation Straight 12/13/2023 9: 45 AM EST Job Start Date Occupation Industry Not on file Not on file Not on file Last Filed Vital Signs Vital Sign Reading Time Taken Comments Blood Pressure 144/84 09/02/2024 8:10 AM EDT Pulse 79 09/02/2024 8:10 AM EDT Temperature 37 ??C (98.6 ??F) 12/14/2023 7:27 AM EST Respiratory Rate 12 12/14/2023 7:27 AM EST Oxygen Saturation 95% 12/14/2023 7:27 AM EST Inhaled Oxygen Concentration - - Weight 86.4 kg (190 lb 6.4 oz) 09/02/2024 8:10 A M EDT Height 174 cm (5' 8.5 ) 09/02/2024 8:10 AM EDT Body Mass Index 28.53 09/02/2024 8:10 AM EDT Plan of Treatment Health Maintenance Due Date Last Done Comments Hepatitis C Screening 1963 COVID-19 Vaccine (#1) 1963 Pneumococcal Vaccine (1 of 2 - PCV) 1969 Depression Screening 1975 BMI Counseling 1981 Preventative Health Evaluation 1981 DTap / Tdap / Td (1 - Tdap) 1982 Colon Cancer Screening (Colonoscopy) 02/24/2008 Shingrix-Zoster Vaccine (1 of 2) 2013 Influenza Vaccine (#1) 2024 Tobacco Cessation Counseling 07/17/2024 07/17/2023 RSV Adult > 60+ Yrs or Pregn ant (1 - 1-dose 75+ series) 2038 Hepatitis B Vaccines Aged Out No long er eligible based on patient's age to complete this topic RSV Ped < 20 months Aged Out No longe r eligible based on patient's age to complete this topic Medical Devices Implanted Type Area Tripe Washer Device Identifier Shelf Expiration Date Model / Serial / Lot Tibial Bearing Insert Cr Sz 5 10mm Stry-How [id number] - [id number] Implanted:Qty: 1 on 12/13/2023 by [place] Herrera [place] [facility] [place] [facility] Left: Knee [employer] 10/15/2028 5530-G-510 -E / / [id number] Knee Fem Bsplt W Pa Stry-How [id number] - [id number] Implanted:Qty: 1 on 12/13/2023 by Bo Herrera [place] [facility] [place] [facility] Left: Knee [employer] 08/13/2028 5517-F-501 / / [id number] Knee Bsplt Triathlon Ti Sz 5 Stry-How [id number] - [id number] Implanted:Qty: 1 on 12/13/2023 by Bo Herrera MD [place] [facility] [place] [facility] Left: Knee [employer] 10/06/2028 5536-B-500 / / [id number] Advance Directives For more information, please contact: [phone] Latest Code Status on File Code Status Date Activated Date Inactivated Comments Full Code 12/13/2023 3:50 PM 12/14/2023 6:03 PM This co de status was ascertained in the following way: discussion with patient . Code Status History Code Status Date Activated Date Inactivated Comments Full Code 12/13/2023 9:38 AM 12/13/2023 3:50 PM This co de status was ascertained in the following way: discussion with patient . Care Teams Manager Simulation Relationship Specialty Start Date End Date Tomasz Winchester MD [address] [place] [id number] PCP - General Internal Medicine 01/04/23
== END 2025-02-17 11:19 | disposition home or self-care (01) ==
LOC: HO.RHES 10:13
PROVIDERS: PCP Internal Medicine; Visit Provider Internal Medicine Rheumatology
DX: M19.041 Primary osteoarthritis, right hand (principal); M19.042 Primary osteoarthritis, left hand
CPT/HCPCS: 99213

== ENCOUNTER → 2025-02-17 10:13 | Outpatient (BNVA) | payer BC, SELFPAY | PROVIDERS: PCP Internal Medicine; Visit Provider Internal Medicine Rheumatology ==

== ENCOUNTER 2025-03-03 11:28 | Outpatient (REF) | payer BC, SELFPAY ==
--- NOTE | ~2025-03-03 | XR_ITS ---
EXAMINATION: XR HAND, LEFT CLINICAL INFORMATION: Primary osteoarthritis, left hand COMPARISON: None available. TECHNIQUE: PA, lateral, and oblique views of the left hand. FINDINGS: No fracture, dislocation, or suspicious bone lesion. No periarticular osteopenia identified. Normal bone mineralization. There are moderate to severe severe arthritic changes throughout the PIP and DIP joints of the digits, worst in the first through fourth digits. There is mild radial subluxation of the interphalangeal joint of the thumb. There is mild ulnar subluxation of the PIP joint of the second and third digits. Extensive productive bony changes/marginal osteophytosis with findings suggestive of possible early central erosions, as well as mouse ear type erosions suggesting possible psoriatic arthritis. There is involvement of the first through fourth MCPs as well, with moderate joint space narrowing, and hooked metacarpal head osteophytes of the second, third, and fifth metacarpal heads. Moderate to severe degenerative type arthritis in the first CMC joint of the wrist. 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 The wrist is otherwise relatively spared from arthritic findings. XR/XR hand LT min 3V IMPRESSION: 1. Extensive arthritic changes of the interphalangeal joints of the digits and lesser changes of the MCPs, with predominant feature productive bony changes. Differential includes primary erosive osteoarthritis and psoriatic arthritis. 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 2. Moderate to severe degenerative type arthritis of the first CMC joint. Electronically signed by: Trey Montague MD 03/04/2025 10:14 AM EDT
--- NOTE | ~2025-03-03 | XR_ITS ---
EXAMINATION: XR HAND, RIGHT CLINICAL INFORMATION: M19.041 - Primary osteoarthritis, right hand COMPARISON: None available. TECHNIQUE: PA, lateral, and oblique views of the right hand. FINDINGS: No fracture, dislocation, or suspicious bone lesion. No periarticular osteopenia identified. Normal bone mineralization. There are moderate to severe severe arthritic changes throughout the PIP and DIP joints of the digits, worst in the first through fourth digits. There is mild radial subluxation of the interphalangeal joint of the thumb. There is mild ulnar subluxation of the PIP joint of the second, and fourth digit. Extensive productive bony changes/marginal osteophytosis with findings suggestive of early central erosions, as well as mouse ear type erosions suggesting psoriatic arthritis. There is involvement of the first through fourth MCPs as well, with moderate joint space narrowing. Mild arthritis in the first CMC joint of the wrist. The wrist is otherwise relatively spared from arthritic findings. XR/XR hand RT min 3V IMPRESSION: Extensive arthritic changes of the interphalangeal joints of the digits and lesser changes of the MCPs, with predominant feature productive bony changes. Differential includes primary erosive osteoarthritis and psoriatic arthritis. Electronically signed by: Trey Montague MD 03/04/2025 10:06 AM EDT
--- OUTSIDE RECORDS SUMMARY | 2025-03-03 13:55 | XMS_ITS | Clinical Summary ---
Author Organization [facility] Address [address] [place] [address] Care Team Providers Care Enrichment Director Name Role Phone Tomasz Winchester MD Primary Care Provider Allergies No known active allergies Medications Medication [...] this topic Medical Devices Implanted Type Area Side Stitcher Device Identifier Shelf Expiration Date Model / Serial / Lot Tibial Bearing Insert Cr Sz 5 10mm Stry-How [id number] - [id number] Implanted:Qty: 1 on 12/13/2023 by Bo Herrera MD at [facility] Left: Knee [employer] 10/15/2028 5530-G-510 -E / / [id number] Knee Fem Bsplt W Pa Stry-How [id number] - [id number] Implanted:Qty: 1 on 12/13/2023 by Bo Herrera MD at [facility] Left: Knee [employer] 08/13/2028 5517-F-501 / / [id number] Knee Bsplt Triathlon Ti Sz 5 Stry-How [id number] - [id number] Implanted:Qty: 1 on 12/13/2023 by Bo Herrera MD at [facility] Left: Knee [employer] 10/06/2028 5536-B-500 / / [id number] Advance Directives For more information, please contact: [phone] Latest Code Status on File Code Status [...] way: discussion with patient . Care Teams Enrichment Director Relationship Specialty Start Date End Date Tomasz Winchester MD [address] [place] [id number] PCP - General Internal Medicine 01/04/23
--- OUTSIDE RECORDS SUMMARY | 2025-03-03 13:56 | XMS_ITS | Clinical Summary ---
Author Organization [facility] Address [address] [place] [address] Phone Care Team Providers Care Crop And Soil Scientist Name Role Phone Tomasz Winchester MD Primary Care Provider [phone] Allergies No known active allergies Medications atorvastatin [...] this topic Medical Devices Implanted Type Area Inspector [employer] Device Identifier Shelf Expiration Date Model / Serial / Lot Tibial Bearing Insert Cr Sz 5 10mm Stry-How [id number] Implanted:Qty: 1 on 12/13/2023 by Bo Herrera MD Left: Knee [employer] 10/15/2028 5530-G-510 -E / / [id number] Knee Fem Bsplt W Pa Stry-How [id number] Implanted:Qty: 1 on 12/13/2023 by Bo Herrera MD Left: Knee [employer] 08/13/2028 5517-F-501 / / [id number] Knee Bsplt Triathlon Ti Sz 5 Stry-How [id number] Implanted:Qty: 1 on 12/13/2023 by Bo Herrera MD Left: Knee [employer] 10/06/2028 5536-B-500 / / [id number] Procedures Procedure Name Priority Date/Time Associated Diagnosis [...] LAB CHEMISTRY METHOD 10/23/2024 2:25 PM EST [facility] Mean Bld Glu Estim. 146 mg/dL LAB CHEMISTRY METHOD 10/23/2024 2:25 PM EST [facility] Blood Venous blood specimen / Unknown Venipuncture / Unknown 10/23/2024 10:51 AM EST 10/23/2024 11:30 AM EST us Tomasz Winchester MD LAB BLOOD ORDERABLES Final Res ult [facility] [address] [place] [address], * (ABNORMAL) Comprehensive metabolic panel (10/23/2024 10:51 AM EST) Pathologist [facility] Sodium 139 133 - 145 mmol/L LAB CHEMISTRY METHOD 10/23/2024 1:37 PM [facility] Potassium 3.7 3.5 - 5.5 mmol/L LAB CHEMISTRY METHOD 10/23/2024 1:37 PM [facility] Chloride 105 96 - 110 mmol/L LAB CHEMISTRY METHOD 10/23/2024 1:37 PM [facility] CO2 25 21 - 32 mmol/L LAB CHEMISTRY METHOD 10/23/2024 1:37 PM EST [facility] Anion Gap 9 3 - 11 LAB CHEMISTRY METHOD 10/23/2024 1:37 PM [facility] Glucose 100 70 - 100 mg/dL LAB CHEMISTRY METHOD 10/23/2024 1:37 PM [facility] BUN 16 5 - 25 mg/dL LAB CHEMISTRY METHOD 10/23/2024 1:37 PM [facility] Creatinine 0.69(L) 0.70 - 1.30 mg/dL LAB CHEMISTRY METHOD 10/23/2024 1:37 PM [facility] eGFR 105 >=60 mL/min/1. 73m2 LAB CHEMISTRY METHOD 10/23/2024 1:37 PM [facility] Comment:Calculation based on the??Chronic Kidney Disease Epidemiology Collaboration (CKD-EPI) equation refit??without adjustment for race. BUN/Creatinine Ratio 23.2 LAB CHEMISTRY METHOD 10/23/2024 1:37 PM [facility] Calcium 9.4 8.5 - 10.5 mg/dL LAB CHEMISTRY METHOD 10/23/2024 1:37 PM [facility] AST (SGOT) 18 10 - 42 unit/L LAB CHEMISTRY METHOD 10/23/2024 1:37 PM [facility] ALT (SGPT) 30 10 - 60 unit/L LAB CHEMISTRY METHOD 10/23/2024 1:37 PM [facility] Alkaline Phosphatase 86 42 - 121 unit/L LAB CHEMISTRY METHOD 10/23/2024 1:37 PM [facility] Total Protein 7.0 6.0 - 8.0 g/dL LAB CHEMISTRY METHOD 10/23/2024 1:37 PM [facility] Albumin 4.2 3.2 - 5.0 g/dL LAB CHEMISTRY METHOD 10/23/2024 1:37 PM [facility] Total Bilirubin 0.5 0.0 - 1.4 mg/dL LAB CHEMISTRY METHOD 10/23/2024 1:37 PM [facility] Blood Venous blood specimen / Unknown Venipuncture / Unknown 10/23/2024 10:51 AM EST 10/23/2024 11:32 AM EST us Tomasz Winchester MD LAB BLOOD ORDERABLES Final Res ult [facility] [address] [place] [address], from Last 3 Months or Most Recently Relevant to Health Maintenance Insurance [facility] Care Teams Crop And Soil Scientist Relationship Specialty Start Date End Date Tomasz Winchester MD [address] [place] [address] PCP - General 01/04/23
== END 2025-03-03 11:29 | disposition home or self-care (01) ==
LOC: HO.HMGCX 11:28
PROVIDERS: Visit Provider Internal Medicine Rheumatology
DX: M19.041 Primary osteoarthritis, right hand (principal); M19.042 Primary osteoarthritis, left hand
CPT/HCPCS: 73130

== ENCOUNTER → 2025-03-03 11:32 | Outpatient (BNV) | payer BC, SELFPAY | PROVIDERS: Visit Provider Radiology Diagnostic Radiology | DX: M18.51 Other unilateral secondary osteoarthritis of first carpometacarpal joint, right hand (principal); M19.042 Primary osteoarthritis, left hand | CPT/HCPCS: 73130 ==

== ENCOUNTER 2025-03-06 12:33 | Outpatient (REF) | payer BC, SELFPAY ==
--- OUTSIDE RECORDS SUMMARY | 2025-03-06 13:16 | XMS_ITS | Clinical Summary ---
Author Organization [facility] Address [address] [place] [address] Care Team Providers Care Delivery Merchandiser Name Role Phone Tomasz Winchester MD Primary Care Provider [phone] Allergies No known active allergies Medications Medication [...] topic Medical Devices Implanted Type Area Supervisor Rice Milling Device Identifier Shelf Expiration Date Model / Serial / Lot Tibial Bearing Insert Cr Sz 5 10mm Stry-How [id number] - [id number] Implanted:Qty: 1 on 12/13/2023 by Bo Herrera [place] [facility] [place] [facility] Left: Knee [facility] 10/15/2028 5530-G-510 -E / / [id number] Knee Fem Bsplt W Pa Stry-How [id number] - [id number] Implanted:Qty: 1 on 12/13/2023 by Bo Herrera MD at [facility] [place] [facility] Left: Knee [facility] 08/13/2028 5517-F-501 / / [id number] Knee Bsplt Triathlon Ti Sz 5 Stry-How [id number] - [id number] Implanted:Qty: 1 on 12/13/2023 by Bo Herrera MD at [facility] [place] [facility] Left: Knee [facility] 10/06/2028 5536-B-500 / / [id number] Advance Directives For more information, please contact: [phone] Latest Code Status on File Code Status [...] way: discussion with patient . Care Teams Delivery Merchandiser Relationship Specialty Start Date End Date Tomasz Winchester MD [address] [place] [id number] PCP - General Internal Medicine 01/04/23
--- OUTSIDE RECORDS SUMMARY | 2025-03-06 13:17 | XMS_ITS | Clinical Summary ---
Author Organization [facility] Address [address] [place] [address] Phone Care Team Providers Care Business Support Coordinator Name Role Phone Tomasz Winchester MD Primary Care Provider [phone] Allergies No known active allergies Medications atorvastatin [...] this topic Medical Devices Implanted Type Area Carton Stenciler Device Identifier Shelf Expiration Date Model / Serial / Lot Tibial Bearing Insert Cr Sz 5 10mm Stry-How [id number] Implanted:Qty: 1 on 12/13/2023 by Bo Herrera MD Left: Knee [facility] 10/15/2028 5530-G-510 -E / / [id number] Knee Fem Bsplt W Pa Stry-How [id number] Implanted:Qty: 1 on 12/13/2023 by Bo Herrera MD Left: Knee [facility] 08/13/2028 5517-F-501 / / [id number] Knee Bsplt Triathlon Ti Sz 5 Stry-How [id number] Implanted:Qty: 1 on 12/13/2023 by Bo Herrera MD Left: Knee [facility] 10/06/2028 5536-B-500 / / [id number] Procedures Procedure Name Priority Date/Time Associated Diagnosis [...] LAB CHEMISTRY METHOD 10/23/2024 2:25 PM EST [facility] Mean Bld Glu Estim. 146 mg/dL LAB CHEMISTRY METHOD 10/23/2024 2:25 PM EST [facility] Blood Venous blood specimen / Unknown Venipuncture / Unknown 10/23/2024 10:51 AM EST 10/23/2024 11:30 AM EST us Tomasz Winchester MD LAB BLOOD ORDERABLES Final Res ult [facility] [address] [place] [address], * (ABNORMAL) Comprehensive metabolic panel (10/23/2024 10:51 AM EST) Pathologist [facility] Sodium 139 133 - 145 mmol/L LAB CHEMISTRY METHOD 10/23/2024 1:37 PM [facility] Potassium 3.7 3.5 - 5.5 mmol/L LAB CHEMISTRY METHOD 10/23/2024 1:37 PM [facility] Chloride 105 96 - 110 mmol/L LAB CHEMISTRY METHOD 10/23/2024 1:37 PM [facility] CO2 25 21 - 32 mmol/L LAB CHEMISTRY METHOD 10/23/2024 1:37 PM EST [facility] Anion Gap 9 3 - 11 LAB CHEMISTRY METHOD 10/23/2024 1:37 PM [facility] Glucose 100 70 - 100 mg/dL LAB CHEMISTRY METHOD 10/23/2024 1:37 PM [facility] BUN 16 5 - 25 mg/dL LAB CHEMISTRY METHOD 10/23/2024 1:37 PM [facility] Creatinine 0.69(L) 0.70 - 1.30 mg/dL LAB CHEMISTRY METHOD 10/23/2024 1:37 PM [facility] eGFR 105 >=60 mL/min/1. 73m2 LAB CHEMISTRY METHOD 10/23/2024 1:37 PM [facility] Comment:Calculation based on the??Chronic Kidney Disease Epidemiology Collaboration (CKD-EPI) equation refit??without adjustment for race. BUN/Creatinine Ratio 23.2 LAB CHEMISTRY METHOD 10/23/2024 1:37 PM [facility] Calcium 9.4 8.5 - 10.5 mg/dL LAB CHEMISTRY METHOD 10/23/2024 1:37 PM [facility] AST (SGOT) 18 10 - 42 unit/L LAB CHEMISTRY METHOD 10/23/2024 1:37 PM [facility] ALT (SGPT) 30 10 - 60 unit/L LAB CHEMISTRY METHOD 10/23/2024 1:37 PM [facility] Alkaline Phosphatase 86 42 - 121 unit/L LAB CHEMISTRY METHOD 10/23/2024 1:37 PM [facility] Total Protein 7.0 6.0 - 8.0 g/dL LAB CHEMISTRY METHOD 10/23/2024 1:37 PM [facility] Albumin 4.2 3.2 - 5.0 g/dL LAB CHEMISTRY METHOD 10/23/2024 1:37 PM [facility] Total Bilirubin 0.5 0.0 - 1.4 mg/dL LAB CHEMISTRY METHOD 10/23/2024 1:37 PM [facility] Blood Venous blood specimen / Unknown Venipuncture / Unknown 10/23/2024 10:51 AM EST 10/23/2024 11:32 AM EST us Tomasz Winchester MD LAB BLOOD ORDERABLES Final Res ult [facility] [place] [facility] [address] [place] [address], from Last 3 Months or Most Recently Relevant to Health Maintenance Insurance [facility] Care Teams Business Support Coordinator Relationship Specialty Start Date End Date Tomasz Winchester MD [address] [place] [address] PCP - General 01/04/23
[2025-03-06 16:07] LABS: MANUAL DIFF FLAG NO
[2025-03-06 16:19] LABS: Basophils Absolute Auto 0.1 X10*3/uL (0.0-0.2); Basophils Percent Auto 0.8 % (0-2); Eosinophils Absolute Auto 0.4 X10*3/uL (0.0-0.4); Eosinophils Percent Auto 5.1 % (0-4); Hematocrit 41.1 % (42.0-52.0); Hemoglobin 14.1 g/dl (14.0-18.0); Imm Gran Abs Auto 0.02 X10*3/uL (0.00-0.03); Imm Gran Pct Auto 0.3 % (0.0-0.4); Lymphocytes Absolute Auto 2.5 X10*3/uL (1.2-4.9); Lymphocytes Percent Auto 33.8 % (20-40); Mean Corpuscular HGB Conc 34.3 g/dl (31.0-36.0); Mean Corpuscular Hemoglobin 31.5 pg (27.0-33.0); Mean Corpuscular Volume 91.7 fL (80.0-98.0); Mean Platelet Volume 10.7 fL (9.4-12.4); Monocytes Absolute Auto 0.6 X10*3/uL (0.1-1.2); Monocytes Percent Auto 8.1 % (2-11); Neutrophils Absolute Auto 3.8 x10*3/uL (2.0-8.3); Neutrophils Percent Auto 51.9 % (45-73); Platelet Count 210 X10*3/uL (160-400); Red Blood Count 4.48 X10*6/uL (4.60-5.80); Red Cell Distribution Width 13.1 % (11.0-16.0); White Blood Count 7.3 X10*3/uL (4.8-10.8)
[2025-03-06 16:33] LABS: Iron 102 mcg/dL (45-160); Percent Iron Saturation 45 % (15-50); Total Iron Binding Capacity 228 mcg/dL (228-428); Unsaturated Iron Binding 126 ug/dL
[2025-03-06 16:48] LABS: Ferritin 137 ng/mL (20-250)
[2025-03-09 12:34] LABS: Transferrin 200 mg/dL (188-341)
== END 2025-03-06 12:34 | disposition home or self-care (01) ==
LOC: HO.HMGCLDS 12:33
PROVIDERS: Visit Provider Internal Medicine Rheumatology
DX: M19.041 Primary osteoarthritis, right hand (principal); M19.042 Primary osteoarthritis, left hand
CPT/HCPCS: 36415; 82728; 83540; 84466; 85025

== ENCOUNTER 2025-05-21 08:37 | Outpatient (AMB) | payer BC, SELFPAY ==
[2025-05-21 08:41] VITALS: BP 130/80; PULSE 83; O2SAT 96; BMI 25.5
--- NOTE | 2025-05-21 08:41 | MHC.OFFVIS ---
Vital Signs 05/21/25 08:41 Height 5 ft 11 in Weight 182 lb 15.739 oz BMI 25.5 BP 130/80 Blood Pressure Location Lt brachial Position Sitting Pulse 83 Pulse Source Pulse Oximeter Pulse Oximetry (%) 96 Oxygen Delivery Method Room Air Intake Visit Reasons: 3 months Intake Note: patient presents for arthitis follow up Allergies No Known Allergies Allergy (Verified 05/21/25 08:47) HPI HPI 3 months: Details: He had lumbar fusion, which resolved left radiculopathy. 3-4 weeks ago he started having parethesia in right arm. He has pain in right axilla when he stretches right arm to the left side with associated parenthesis. Orthopedic surgery ordered a C-spine MRI. He will be following up with orthopedic surgery next month. Cortisone injection provided him with 1 month of no pain. Pain slowly came back. [facility] Surgical History (Reviewed 05/21/25 @ 08:48 by Mary Henning [facility]) History of back surgery History of left knee replacement Physical Exam Vital Signs: Last Vital Signs Pulse 83 05/21/25 08:41 BP 130/80 05/21/25 08:41 Pulse Ox 96 05/21/25 08:41 Oxygen Delivery Method Room Air 05/21/25 08:41 BMI result Body Mass Index 25.5 Const Other: General: Comfortable Skin: No lesions seen MSK: Heberden nodes and Chaka's nodes present. He has squaring of CMCs. Tender bilateral first MCPs. He is able to make a fist with his hands. Office Procedures AMB Joint Injection/Aspiration Joint Injection/Aspiration Details: Bilateral CMC joint Prep: site was prepped using aseptic technique Injected into each site: 10 mg of, Kenalog, with 0.25 mL of and 1% plain lidocaine Procedure: Informed verbal consent was obtained. The patient tolerated the procedure well. Postprocedure protocol was discussed with patient. Coding - Small Joint Procedure code (CPT) selection complete AMB Joint Injection/Aspiration Coding - Small Joint Procedure code (CPT) selection complete Office Meds lidocaine (PF) 10 mg/mL (1 %) injection solution Performing Provider: Patric Juarez MD Performing Location[place] [facility] Administered by: Patric Juarez MD on 05/21/25 09:02 Dose Route Admin Location Dispensed Lot Number Expiration Date NDC Biodiesel Product Manager 2.5 mg Infiltration 2 mL [id number] 04/11/27 95521-342-88 FRESENIUS K[employer] Total Dispensed Waste 2 mL 87.5 % Kenalog 40 mg/mL suspension for injection Performing Provider: Patric Juarez MD Performing Location: [facility] Administered by: Patric Juarez MD on 05/21/25 09:02 Dose Route Admin Location Dispensed Lot Number Expiration Date ND Biodiesel Product Manager 10 mg intra-articular 1 mL [id number] 06/11/26 [address]-4 [employer] Total Dispensed Waste 1 mL 75 % lidocaine (PF) 10 mg/mL (1 %) injection solution Performing Provider: Patric Juarez MD Performing Location: [facility] Administered by: Patric Juarez MD on 05/21/25 09:02 Dose Route Admin Location Dispensed Lot Number Expiration Date [facility] Biodiesel Product Manager 2.5 mg Infiltration 2 mL [id number] 04/11/27 00501-554-03 FRESENIUS KABI Total Dispensed Waste 2 mL 87.5 % Kenalog 40 mg/mL suspension for injection Performing Provider: Patric Juarez MD Performing Location: [facility] Administered by: Patric Juarez MD on 05/21/25 09:02 Dose Route Admin Location Dispensed Lot Number Expiration Date [facility] Biodiesel Product Manager 10 mg intra-articular 1 mL [id number] 06/11/26 [address]-6 [employer] Total Dispensed Waste 1 mL 75 % Assessment & Plan Assessment & Plan (1) Osteoarthritis of hands, bilateral: Comment: Bilateral 1st MCP osteoarthritis pain is uncontrolled. We reviewed x-rays together. There are changes of the MCPs related to secondary osteoarthritis. Workup for hemochromatosis was negative. No radiographic finding of CPPD disease. He denies history of psoriasis. Code(s): M19.041 - Primary osteoarthritis, right hand; M19.042 - Primary osteoarthritis, left hand Category: Medical Qualifiers: Osteoarthritis type: primary Qualified Code(s): M19.041 - Primary osteoarthritis, right hand; M19.042 - Primary osteoarthritis, left hand Plan: Patient received bilateral 1st MCP cortisone injections Continue Celebrex 200 mg twice a day Labs for drug monitoring on chronic NSAID ordered He will monitor duration of benefit with cortisone injections from this visit Return to clinic in 3 months (2) superintendent terminal (current) use of non-steroidal anti-inflammatories (nsaid): Code(s): Z79.1 - shelter (current) use of non-steroidal anti-inflammatories (NSAID) Category: Medical Plan: See above (3) Arm paresthesia, right: Comment: New onset. He had MRI C-spine ordered by orthopedic surgery. I recommended that he follow up with orthopedic surgery for his symptoms to see if there is any nerve root impingement on C-spine MRI that can explain his symptoms. Further workup with EMG of right arm would be warranted if MRI is not helpful. Code(s): R20.2 - Paresthesia of skin Category: Medical Plan: He will further discuss his symptoms and review MRI report of C-spine with orthopedic surgeon who he will be seeing next month Orders: Orders Creatinine Today Z79.1 - superintendent terminal (current) use of non-steroidal anti-inflammatories (NSAID) AMB Joint Injection/Aspiration Today M19.041 - Primary osteoarthritis, right hand, M19.042 - Primary osteoarthritis, left hand, Z79.1 - superintendent terminal (current) use of non-steroidal anti-inflammatories (NSAID) Alanine Aminotransferase Today Z79.1 - shelter (current) use of non-steroidal anti-inflammatories (NSAID) Aspartate Amino Transferase Today Z79.1 - shelter (current) use of non-steroidal anti-inflammatories (NSAID) AMB Joint Injection/Aspiration Today M19.041 - Primary osteoarthritis, right hand, M19.042 - Primary osteoarthritis, left hand, Z79.1 - superintendent terminal (current) use of non-steroidal anti-inflammatories (NSAID) Medications: Refilled celecoxib (Celebrex) Take with food. 200 mg PO BID 180 caps 1RF 90 days Coding Level of Care Code Est Pt Level 3 (94410) Complex EM visit Add On G2211 Diagnoses Primary osteoarthritis of both hands M19.041; M19.042 Osteoarthritis type: primary superintendent terminal (current) use of non-steroidal anti-inflammatories (nsaid) Z79.1 Arm paresthesia, right R20.2 CPT Codes Coding - 76418 - Small joint: 65222 - Small Joint ([id number]) Coding - 48898 - Small joint: 77834 - Small Joint ([id number])
--- OUTSIDE RECORDS SUMMARY | 2025-05-21 08:48 | XMS_ITS | Clinical Summary ---
Author Organization [facility] Address [address] [place] [address] Care Team Providers Care Hydraulic Hammer Operator Name Role Phone Tomasz Winchester MD Primary Care Provider [phone] Allergies No known active allergies Medications Medication [...] 79 09/02/2024 8:10 AM EDT Temperature 37 C (98.6 F) 12/14/2023 7:27 AM EST Respiratory Rate 12 [...] 02/24/2008 Shingrix-Zoster Vaccine (1 of 2) 2013 Tobacco Cessation Counseling 07/17/2024 07/17/2023 Influenza Vaccine (#1) 2025 RSV Adult > 60+ Yrs or Pregn ant (1 - 1-dose 75+ series) 2038 Hepatitis B Vaccines Aged Out No long er eligible based on patient's age to complete this topic RSV Ped < 20 months Aged Out No longe r eligible based on patient's age to complete this topic Medical Devices Implanted Type Area Work Study Student Device Identifier Shelf Expiration Date Model / Serial / Lot Tibial Bearing Insert Cr Sz 5 10mm [facility] [id number] - [id number] Implanted:Qty: 1 on 12/13/2023 by Bo Herrera MD at [facility] [place] [facility] Left: Knee [facility] 10/15/2028 5530-G-510 -E / / [id number] Knee Fem Bsplt W Pa [facility] [id number] - [id number] Implanted:Qty: 1 on 12/13/2023 by Bo Herrera MD at [facility] [place] [facility] Left: Knee [facility] 08/13/2028 5517-F-501 / / [id number] Knee Bsplt Tri[facility]lon Ti Sz [facility] [id number] - [id number] Implanted:Qty: 1 on 12/13/2023 by Bo Herrera MD at [facility] Left: Knee [facility] 10/06/2028 5536-B-500 / / [id number] Advance Directives For more information, please contact: [phone] Latest Code Status on File Code Status [...] way: discussion with patient . Care Teams Hydraulic Hammer Operator Relationship Specialty Start Date End Date Tomasz Winhcester MD [address] [place] [id number] PCP - General Internal Medicine 01/04/23
--- OUTSIDE RECORDS SUMMARY | 2025-05-21 08:48 | XMS_ITS | Continuity of Care Document ---
Author Organization [place] [facility] Sara Londono AONE [place] Address [address] [place] [address] Care Team Providers Care Vice President Of Finance Name Role Phone ESTELA LOPEZ Primary Care Provider ESTELA LOPEZ Referring Provider [phone] Assessment Encounter Date Assessment Date Assessment LastModified by Organization Details LastModified Time 05/18/2025 05/18/2025 60-year-old male with multiple arthritic body parts returns in good spirits status post bilateral L4-5 midline sparing laminectomies and foraminotomies on May 06, 2025. His preoperative leg symptoms are much improved. He has some left low back/buttock discomfort which improves with walking. His wound is healing nicely. He is grossly neurologically intact. His employment requires walking and some lifting. He is not ready to return to work. Will follow-up in 1 month. At that time he is ready to return to work he will be released otherwise we will refer him to physical therapy. He has a variety of other body parts limiting his return to work including his hands and his right knee. He will take those up with Dr. Ibarra. He will return in 1 month for reevaluation. He remains temporarily totally disabled. 05/06/2025: Bilateral L4-5 midline sparing laminectomies and foraminotomies. Not available 05/18/2025 11:06:23 Plan of Treatment Reminders Order Date Submit Date Provider Last Modified By Organization Details Last Modified Time Details Appointments POST-O P 025 10:45AM Augusto Curtis MD Not available Not available Not available Lab None record ed. Referral None record ed. Procedures None record ed. Surgeries None record ed. Imaging None record ed. Medication Orders None record ed. Patient TargetsNo targets recorded. Patient Instructions Encounter Date Encounter Id Patient Instructions Last Modified By Organization Details Last Modified Time 05/18/2025 [id number] work status report* - Remain out of work until next visit in 1 month irma Not available 05/18/2025 11:10:04 Reason for Referral None Reported. Results Created Date Observation Date Name Description Value Unit Range Abnormal Flag Note LastModifiedBy Organization Detail LastModifiedTime 05/13/2005/07/2025 fluor oscop y evalu ation (PROC ) No observ ation record ed. [email or web address] [address], [place], [address], 05/13/2025 07:16:19 Result Notes None recorded. Problems Name Problem SNOMED Code Status Onset Date Resolution Date Notes Provider Name and Address Organization Details Recorded Time Pain of right calf 8368612905082 103 Active 2022 LEVON MARTINEZ PA-C [address], [place], [address] , [place] [facility] 3 08:37:18 Osteoarthr itis of left knee joint 7613596270708 09 Active 2022 LEVON MARTINEZ PA-C [address], [place], [address] , [place] [facility] 06:42:48 Arthritis of knee 860360167 Active 2022 Bo Herrera MD [address], [place], [address] , [place] [facility] 3 09:27:54 Bilateral arthritis of knees 6559723967590 108 Active 2022 LEVON MARTINEZ PA-C [address], [place], [address] , [place] [facility] 08:28:12 Effusion of joint of right knee 7689177314098 04 Active 2022 LEVON MARTINEZ, PA-C [address], [place], [address] , [place] [facility] 3 10:51:12 Effusion of joint 890149375 Active 2022 LEVON MARTINEZ PA-C [address], [place], [address] , [place] [facility] 3 10:52:27 Arthritis of left knee 1193464208993 104 Active 2023 LEVON SANTOS PA-C [address], [place], [address] , [place] [facility] 4 10:29:56 History of left total knee replacemen t 6250100968405 105 Active 2023 LEVON SANTOS PA-C [address], [place], [place], [address] , [place] [facility] 4 10:58:44 Acute low back pain 659900081 Active [address], [place], [address] , [place] [facility] 4 16:08:58 Lumbar spondylosi s 473787698 Active [address], [place], [address] , [place] [facility] 4 11:50:58 Sacroiliac disorder 993236231 Active 2023 TJ JEONG PA-C [address], [place], [address] , [place] [facility] 4 10:25:18 Spinal stenosis of lumbar region 06719372 Active [address], [place], [address] , [place] [facility] 4 10:00:10 Cervical radiculopa thy 66583706 Active 2024 Augusto Curtis MD [address], [place], [address] , [place] [facility] 5 11:41:23 Postoperat renae pain 881804826 Active 2024 TJ JEONG PA-C [address], [place], [address] , [place] [facility] 5 10:38:51 History of excision of lamina of lumbar vertebra for decompress ion of spinal cord 992561118 Active 2024 Augusto Curtis MD [address], [place], [address] , [place] [facility] 5 11:04:40 Osteoarthr itis of right knee joint 0208968725374 00 Active 2022 LEVON SANTOS PA-C [address] [address], [place], [address] , [place] [facility] 4 10:32:13 Bilateral osteoarthr itis of knees 3912920230091 07 Active 2022 [facility] Available [facility] 11:40:46 Problem Notes None recorded. Procedures Surgical History Date Name Laterality Status Provider Name and Address Organization Details Recorded Time 025 LUMBAR SPINE SURGERY (SURG) completed Lindsay Guevara [place] [facility] 05/08/2025 08:38:24 024 Euflexxa Knee Inj w/US completed LEVON SANTOS PA-C [address], [place], [address], [place] [facility] 08/20/2024 10:42:28 024 Euflexxa Knee Inj w/US completed LEVON SANTOS PA-C [address], [place], [address], [place] [facility] 08/13/2024 10:32:48 024 Euflexxa Knee Inj w/US completed LEVON SANTOS PA-C [address], [place], [address], [place] [facility] 08/06/2024 10:31:59 024 Euflexxa Knee Inj completed Rosalina Nguyenes [place] [facility] 11/15/2023 09:57:04 023 Euflexxa Knee Inj completed BARBARA GUERRA PA-C [address], [place], [address], [place] [facility] 11/07/2023 16:05:37 023 Euflexxa Knee Inj completed LEVON MARTINEZ PA-C [address], [place], [address], [place] [facility] 10/31/2023 10:45:30 023 Knee Joint/Bursa Asp & Inj completed LEVON MARTINEZ PA-C [address], [place], [address], [place] [facility] 10/01/2023 09:18:27 023 Euflexxa Knee Inj completed LEVON MARTINEZ PA-C [address], [place], [address], [place] [facility] 04/30/2023 07:20:21 023 Euflexxa Knee Inj completed LEVON MARTINEZ PA-C [address], [address], [place] [facility] 04/23/2023 11:07:50 023 Euflexxa Knee Inj completed LEVON MARTINEZ PA-C [address], [address], [place] [facility] 04/16/2023 08:54:09 repair of musculotendinous cuff of shoulder completed [facility] [place] [facility] 09/27/2023 10:40:22 Imaging Results None recorded. Procedure Notes None recorded. Medical Equipment None Reported. Allergies No known drug allergies Medications Name Sig Start Date Stop Date Status Note LastModified by Organization Details LastModified Time Prescriptio n - Prior Authorizati on Request active Not Available Not Available N ot Available celecoxib 200 mg capsule TAKE 1 CAPSULE BY MOUTH TWICE DAILY WITH FOOD active Not Available Not Available No t Available atorvastati n 40 mg tablet TAKE [...] Not Available methocarbam ol 750 mg tablet TAKE 1 TABLET BY MOUTH FOUR TIMES DAILY NEEDED active Not Available Not Available No t Available hydrocortis one 1 % topical cream APPLY TO AFFECTED AREA TWICE A DAY 01/17 completed Not Available Not Available Not Available pantoprazol e 40 mg tablet,dilcia yed release active Not Available Not Available Not Available nicotine 21 mg/24 hr daily transdermal patch APPLY 1 PATCH DAILY active Not Available Not Available No t Available gabapentin 300 mg capsule active Not Available Not Available Not Available methylpredn isolone 4 mg tablets in a dose pack FOLLOW PACKAGE DIRECTION S 08/18 completed Not Available Not Available Not Available oxycodone 5 mg tablet TAKE 1 TABLET BY MOUTH EVERY 4 HOURS NEEDED active Not Available Not Available No t Available rosuvastati n 10 mg tablet TAKE 1 TABLET BY MOUTH DAILY AT BEDTIME active Not Available Not Available No t Available chlorhexidi ne gluconate 0.12 % mouthwash [...] and Address Organization Details Last Updated DateTime 05/18/2025 177.8 cm 25.8 kg/m2 [address] [place] [facility] 05/18/2025 10:51:10 Social History Question Answer Notes LastModified by [employer] Details LastModified Time Tobacco Smoking Status Current Every Day Smoker Rosalina man, [place] [facility] 09/27/2023 10:23:41 How Much Tobacco Do You Smoke? 1 PPD Information not available 09/27/2023 Sex: Unknown Functional Status Question Answer Note LastModified by [employer] Details LastModified Time How many times per week do you consume alcohol? 1-2 times per week Information not available 09/27/2023 Do you use any illicit or recreational drugs? No Information not available 09/27/2023 Do you or have you ever used any other forms of tobacco or nicotine? No Information not available 09/27/2023 What is your level of alcohol consumption? Occasional Information not available 09/27/2023 Mental Status None recorded. Family History Relationship [...] SNOMED-CT Code Diagnosis ICD10 Code Diagnosis Note [id number] Augusto Curtis MD [id number] 05/18/2025 10:44:15 05/18/2025 11:09:45 History of excision of lamina of lumbar vertebra for decompression of spinal cord [id number] Z98.890 05/06/2025: Bilateral L4-5 midline sparing laminectom ies and foraminoto mies. Health Concerns Section Related Observation LastModified by Organization Detai ls LastModified Time None Recorded Concern Status LastModified by Organization Details LastModified Time None Recorded Payers Encounter Date Sequence Insurance Name Policy Number Policy Conway Covered Member ID Conway Member ID Guarantor Name 05/18/2025 1 [employer] [id number] Leon Hathaway [id number] Leon Hathaway
--- OUTSIDE RECORDS SUMMARY | 2025-05-21 08:48 | XMS_ITS ---
Author Name [facility] Organization Unknown Results Test Name/Text Value Interpretation Date Range Source Glucose Bld-mCnc 141.0 mg/dL 05/07/2025 70 - 199 [facility] History of Medication Use Medication Directions Dispensed Refills Start Date End Date Stat us oxyCODONE (ROXICODONE) immediate release tablet 5 mg 5 mg, oral, Every 4 hours PRN, moderate pain, severe pain, for pain 4-6, Starting on Samantha 05/07/25 at 1211, For 2 doses, Recovery (only) 05/07/2025 5 aborted lactated Ringer's infusion 100 mL/hr, intravenous, Continuous, Starting on Samantha 05/07/25 at 0745, Preprocedure 05/07/2025 active sodium chloride 0.9 % flush 10 mL [Order 1 Start] Name: Insert peripheral IV Signed Summary: STAT, Once, On Samantha 05/07/25 at 0725, For 1 occurrence, Preprocedure [Order 1 End] [Order 2 Start] Name: Maintain IV access Signed Summary: Until discontinued, Starting on Samantha 05/07/25 at 0725, Until Specified, Preprocedure [Order 2 End] [Order 05/07/2025 active rosuvastatin (CRESTOR) 10 mg tablet Take by mouth at bedtime. 03/16/2025 active gabapentin (NEURONTIN) 300 mg capsule Take 1 capsule (300 mg total) by mouth 3 (three) times a day. 10/16/2024 active methocarbamoL (ROBAXIN) 750 mg tablet 12/14/2023 4 aborted methocarbamol (ROBAXIN) 750 MG tablet Take 1 tablet (750 mg total) by mouth 3 (three) times a day as needed. 12/14/2023 4 aborted ondansetron (Zofran) 4 MG tablet Take 1 tablet (4 mg total) by mouth daily as needed. 12/14/2023 4 aborted celecoxib (CeleBREX) 200 mg capsule Take 1 capsule (200 mg total) by mouth 1 (one) time each day if needed. 09/26/2023 active celecoxib (CeleBREX) 200 MG capsule Take 1 capsule (200 mg total) by mouth daily. 09/26/2023 active atorvastatin (LIPITOR) 40 mg tablet Take 1 tablet (40 mg total) by mouth 1 (one) time each day. 07/16/2023 active Medrol (Pablo) 4 mg tablets in a dose pack follow package directions 05/11/2023 3 active acetaminophen (TYLENOL) 500 mg tablet Take 2 tablets (1,000 mg total) by mouth every 6 (six) hours if needed for mild pain. 5 aborted oxycodone 5 mg tablet TAKE 1 TABLET BY MOUTH EVERY 4 TO 6 HOURS 4 active tizanidine 4 mg tablet TAKE 1 TABLET BY MOUTH EVERY NIGHT AT BEDTIME NEEDED FOR PAIN OR SPASM 4 completed celecoxib 200 mg capsule TAKE 1 CAPSULE BY MOUTH TWICE A DAY WITH FOOD. REPLACES MELOXICAM. 4 active GaviLyte-G 236 gram-22.74 gram-6.74 gram-5.86 gram oral solution TAKE 8 OUNCES BY MOUTH DIRECTED. FOLLOW INSTRUCTIONS PROVIDED TO YOU BY DOCTORS OFFICE 4 completed amoxicillin 875 mg tablet TAKE 1 TABLET BY MOUTH TWICE A DAY DIRECTED UNTIL FINISHED START 1 DAY BEFORE SURGERY 4 completed amoxicillin 875 mg tablet TAKE 1 TABLET BY MOUTH TWICE A DAY DIRECTED UNTIL FINISHED START 1 DAY BEFORE SURGERY 4 active cefadroxil 500 mg capsule 4 completed cetirizine 10 mg tablet TAKE 1 TABLET BY MOUTH EVERY DAY 4 active famotidine 20 mg tablet TAKE 1 TABLET BY MOUTH TWICE A DAY 4 active famotidine 20 mg tablet TAKE 1 TABLET BY MOUTH TWICE A DAY 4 completed hydrocortisone 1 % topical cream APPLY TO AFFECTED AREA TWICE A DAY 4 active methocarbamol 750 mg tablet 4 completed ondansetron HCl 4 mg tablet 4 completed prednisone 10 mg tablet PLEASE SEE ATTACHED FOR DETAILED DIRECTIONS 4 active celecoxib 200 mg capsule TAKE 1 CAPSULE BY MOUTH TWICE A DAY WITH FOOD. REPLACES MELOXICAM. 3 completed chlorhexidine gluconate 0.12 % mouthwash PLEASE SEE ATTACHED FOR DETAILED DIRECTIONS 3 completed gabapentin 300 mg capsule active gabapentin 300 mg capsule active GaviLyte-G 236 gram-22.74 gram-6.74 gram-5.86 gram oral solution TAKE 8 OUNCES BY MOUTH DIRECTED. FOLLOW INSTRUCTIONS PROVIDED TO YOU BY DOCTORS OFFICE active losartan 100 mg-hydrochlorothiazi de 25 mg tablet TAKE 1 TABLET BY MOUTH EVERY DAY active nicotine 21 mg/24 hr daily transdermal patch APPLY 1 PATCH TOPICALLY ONCE DAILY active oxycodone 5 mg tablet Take 1 tablet every 4-6 hours by oral route. active pantoprazole 40 mg tablet,delayed release active pantoprazole 40 mg tablet,delayed release active rosuvastatin 10 mg tablet TAKE 1 TABLET BY MOUTH DAILY AT BEDTIME active coenzyme Q-10 30 mg capsule Take 1 capsule (30 mg total) by mouth 1 (one) time each day. active hydrocortisone 1 % cream 2 (two) times a day as needed. active nicotine (NICODERM CQ) 21 MG/24HR APPLY 1 PATCH TOPICALLY ONCE DAILY active NON FORMULARY Take 1 capsule by mouth 1 (one) time each day. Prevagen OTC active pantoprazole (PROTONIX) 40 mg EC tablet active Problems Problem Status Onset Date Problem Type Date of Resolution Source Spinal stenosis of lumbar region active 2024-09-15 ProblemAct [facility] History of excision of lamina of lumbar vertebra for decompression of spinal cord active 2025-05-18 ProblemAct [facility] Effusion of joint of right knee active 2023-09-27 ProblemAct [facility] Bilateral osteoarthritis of knees active 2023-04-23 ProblemAct [facility] Lumbar spondylosis active 2024-06-09 ProblemAct [facility] Bilateral arthritis of knees active 2023-07-26 ProblemAct [facility] History of left total knee replacement active 2023-12-27 ProblemAct [facility] Osteoarthritis of left knee joint active 2023-06-12 ProblemAct [facility] Postoperative pain active 2025-05-04 ProblemAct [facility] Osteoarthritis of right knee joint active 2023-04-23 ProblemAct [facility] Arthritis of knee active 2023-06-22 ProblemAct [facility] Cervical radiculopathy active 2025-02-09 ProblemAct [facility] Effusion of joint active 2023-09-27 ProblemAct [facility] Acute low back pain active 2024-05-26 ProblemAct [facility] Sacroiliac disorder active 2024-08-18 ProblemAct [facility] Arthritis of left knee active 2023-12-06 ProblemAct [facility] Pain of right calf active 2023-04-30 ProblemAct [facility] Pain active EncounterDiagnosisAct [facility] Lumbar pain active EncounterDiagnosisAct [facility] Spinal stenosis of lumbar region with neurogenic claudication active 2024-09-02 ProblemAct [facility] Smoking active 2023-12-03 ProblemAct [facility] At risk for sleep apnea active 2023-12-03 ProblemAct [facility] History of hypertension active 2023-12-03 ProblemAct [facility] Lumbar radiculopathy active 2024-09-02 ProblemAct [facility] Osteoarthritis of left hip active 2023-12-03 ProblemAct [facility] History of hyperlipidemia active 2023-12-03 ProblemAct [facility] Poor dentition active 2023-12-03 ProblemAct [facility] Encounters Encounter Type Encounter Reason Primary Diagnosis Location Date Ambulatory Pain, unspecified Pain, unspecified [facility] 05/07/2025 Ambulatory Pain, unspecified Pain, unspecified [facility] 05/07/2025 Ambulatory Spinal stenosis, lumbar region with neurogenic claudication Spinal stenosis, lumbar region with neurogenic claudication [facility] 05/07/2025 Ambulatory [facility] 05/06/2025 Ambulatory [facility] 04/24/2025 Ambulatory [facility] 04/13/2025 Ambulatory [facility] 04/08/2025 Ambulatory [facility] 03/09/2025 Ambulatory [facility] 03/04/2025 Ambulatory [facility] 03/01/2025 Ambulatory [facility] 02/27/2025 Ambulatory [facility] 02/24/2025 Ambulatory [facility] 2025 Ambulatory [facility] 02/19/2025 Ambulatory [facility] 02/10/2025 Ambulatory [facility] 02/09/2025 Ambulatory [facility] 02/01/2025 Ambulatory [facility] 01/27/2025 Ambulatory [facility] 12/28/2024 Ambulatory [facility] 12/23/2024 Ambulatory [facility] 11/18/2024 Ambulatory [facility] 11/10/2024 Ambulatory [facility] 10/28/2024 Ambulatory [facility] 10/27/2024 Ambulatory Follow-up Radiculopathy, lumbar region [facility] 10/16/2024 Ambulatory [facility] 10/02/2024 Ambulatory Lumbar radiculopathy [M54.16] Pain, unspecified [facility] 09/23/2024 Ambulatory [facility] 09/15/2024 Ambulatory Radiculopathy, lumba r region Radiculopathy, lumbar region [facility] 09/02/2024 Ambulatory [facility] 08/21/2024 Ambulatory [facility] 08/20/2024 Ambulatory [facility] 08/18/2024 Ambulatory [facility] 08/18/2024 Ambulatory [facility] 08/18/2024 Ambulatory [facility] 08/13/2024 Ambulatory [facility] 08/11/2024 Ambulatory [facility] 08/06/2024 Ambulatory [facility] 08/04/2024 Ambulatory [facility] 07/21/2024 Ambulatory [facility] 07/19/2024 Ambulatory [facility] 07/10/2024 Ambulatory [facility] 07/04/2024 Ambulatory [facility] 06/27/2024 Ambulatory [facility] 05/26/2024 Ambulatory [facility] 05/26/2024 Ambulatory [facility] 05/23/2024 Ambulatory [facility] 05/21/2024 Ambulatory [facility] 05/21/2024 Ambulatory [facility] 05/15/2024 Ambulatory [facility] 05/02/2024 Ambulatory [facility] 04/30/2024 Ambulatory [facility] 04/16/2024 Ambulatory [facility] 04/09/2024 Ambulatory [facility] 02/29/2024 Ambulatory [facility] 01/28/2024 Ambulatory [facility] 01/04/2024 Ambulatory [facility] 12/28/2023 Ambulatory [facility] 12/25/2023 Ambulatory [facility] 12/21/2023 Ambulatory [facility] 12/21/2023 Ambulatory Encounter for other preprocedural examination Encounter for other preprocedural examination [facility] 12/13/2023 Ambulatory [facility] 12/07/2023 Ambulatory [facility] 11/27/2023 Ambulatory [facility] 11/22/2023 Ambulatory [facility] 11/21/2023 Ambulatory [facility] 11/15/2023 Ambulatory [facility] 11/08/2023 Ambulatory [facility] 11/07/2023 Ambulatory [facility] 11/02/2023 Ambulatory [facility] 11/02/2023 Ambulatory [facility] 10/31/2023 Ambulatory [facility] 10/25/2023 Ambulatory [facility] 09/28/2023 Ambulatory [facility] 09/27/2023 Ambulatory [facility] 09/21/2023 Ambulatory [facility] 08/17/2023 Ambulatory [facility] 07/24/2023 Ambulatory [facility] 07/20/2023 Ambulatory [facility] 06/21/2023 Ambulatory [facility] 06/12/2023 Ambulatory [facility] 06/12/2023 Ambulatory [facility] 06/01/2023 Ambulatory [facility] 05/18/2023 Ambulatory [facility] 05/11/2023 Ambulatory [facility] 05/04/2023 Ambulatory [facility] 04/11/2023 Ambulatory [facility] 04/11/2023 Ambulatory [facility] 04/02/2023 Ambulatory [facility] 03/30/2023 Ambulatory [facility] 03/29/2023 Ambulatory [facility] 03/29/2023 Ambulatory [facility] 02/20/2023 Ambulatory [facility] 02/20/2023 Care Team Organization Name Specialty Phone [facility] ESTELA [facility] Primary Care 09/22/2024 [facility] 09/19/2024 [facility] Primary Care 11/21/2023 11/21/2023 [facility]
--- OUTSIDE RECORDS SUMMARY | 2025-05-21 08:48 | XMS_ITS | Clinical Summary ---
Author Organization [facility] Address [address] [place] [address] Phone Care Team Providers Care Chief Wharfinger Name Role Phone Tomasz Winchester MD Primary Care Provider [phone] Allergies No known active allergies Medications losartan-hydroCH LOROthiazide (HYZAAR) 100-25 mg per tablet Take 1 tablet by mouth 1 (one) time each day. 3 Active turmeric/turmeri c ext/pepr ext (turmeric-turmer ic ext-pepper) 500-3 mg capsule Take 1 tablet by mouth 1 (one) time each day. Active nicotine (NICODERM CQ) 21 mg/24 hr APPLY 1 PATCH TOPICALLY ONCE DAILY Active gabapentin (NEURONTIN) 300 mg capsuleIndicatio ns:Lumbar radiculitis,Spin al stenosis, lumbar region, with neurogenic claudication Take 1 capsule (300 mg total) by mouth 3 (three) times a day. 90 capsule 2 4 Active rosuvastatin (CRESTOR) 10 mg tablet Take by mouth at bedtime. 5 Active coenzyme Q-10 30 mg capsule Take 1 capsule (30 mg total) by mouth 1 (one) time each day. Active NON FORMULARY Take 1 capsule by mouth 1 (one) time each day. Prevagen OTC Active celecoxib (CeleBREX) 200 mg capsule Take 1 capsule (200 mg total) by mouth 2 (two) times a day. 3 05/07/20 25 Discontin ued(Stop Taking at Discharge ) ibuprofen (ADVIL,MOTRIN) 200 mg tablet Take by mouth every 6 (six) hours if needed. 05/07/20 25 Discontin ued(Stop Taking at Discharge ) acetaminophen (TYLENOL) 500 mg tablet Take 2 tablets (1,000 mg total) by mouth every 6 (six) hours if needed for mild pain. 05/07/20 25 Discontin ued(Stop Taking at Discharge ) Active Problems No known active problems Encounters Date Type Department Care Team Description 05/07/2025 10:07 AM EDT Anesthesia Event [facility] OR [address] [place] [phone] Leland Fischer, 05/07/2025 9:25 AM EDT - 05/07/2025 11:40 AM EDT Surgery [facility] OR [address] [place] [phone] Augusto Curtis MD L4-5 DECOMPRESSION LUMBAR [52680 (CPT )] 05/07/2025 7:55 AM EDT - 05/07/2025 11:59 PM EDT Hospital Encounter [facility] Xray [address] [place] [phone] Pain Discharge Disposition: Home or Self Care 05/07/2025 7:50 AM EDT - 05/07/2025 11:59 PM EDT Hospital Encounter [facility] Xray [address] [place] [phone] Pain Discharge Disposition: Home or Self Care 05/07/2025 7:13 AM EDT - 05/07/2025 4:17 PM EDT Hospital Encounter [facility] OR [address] [place] [phone] Augusto Curtis MD Discharge Disposition: Home or Self Care 04/27/2025 Lab Requisition [facility] Lab [address] [facility] [place] [address] Tomasz Winchester MD Essential (primary) hypertension; Mild intermittent asthma, uncomplicated; Type 2 diabetes mellitus with hyperglycemia (CMS/[facility] V24, CMS/[facility] V28) 04/27/2025 Lab Requisition [facility] Lab [address] [facility] [place] [address] Tomasz Winchester MD Essential (primary) hypertension; Type 2 diabetes mellitus without complications ([facility] V24, [facility] V28); Mild intermittent asthma, uncomplicated; Type 2 diabetes mellitus with hyperglycemia ([facility] V24, [facility] V28) from Last 3 Months Surgical History Surgery Date Site/Laterality Comments ROTATOR CUFF REPAIR 1999 Right PROCEDURE:ROTATOR CUFF REPAIR ROTATOR CUFF REPAIR 2000 Left PROCEDURE:ROTATOR CUFF REPAIR VASECTOMY 1992 PROCEDURE:VASECTOMY OTHER SURGICAL HISTORY PROCEDURE:ANAL FISSURECTOMY COLONOSCOPY PROCEDURE:COLONOSCOPY DENTAL SURGERY 10/23/2023 PROCEDURE:DENTAL SURGERY;COMMENT:Deep cleaning due to Gum Infection JOINT REPLACEMENT 11/12/2023 - 11/11/2024 Left knee Medical History Medical History Date Comments Hypertension DX:Hypertension Hyperlipidemia DX:Hyperlipidemi a Osteoarthritis DX:Osteoarthriti s Periodontitis DX:Periodontitis ;COMMENT:Deep cleaning , ABX Tx Colon polyp Family History Medical History Relation Name Comments Hyperlipidemia Brother Hypertension Brother Diabetes Father Hyperlipidemia Father Hypertension Father Prostate cancer Father Stroke Father Dementia Mother Relation Name Status Comments Brother Alive Father Alive Mother Alive Sister (Age 1) respiratory illness Social History Tobacco Use Types Packs/Day Years Used Date Smoking Tobacco: Every Day Cigarettes 1 43.5 Started: 1981 Smokeless Tobacco: Never Tobacco Cessation:Ready to Q uit: Not Asked; Counseling Given: Not Answered Alcohol Use Standard Drinks/Week Comments Yes 2 (1 standard drink = 0.6 oz pur e alcohol) Housing Instability Answer Date Recorde d Are [...] Safety Answer Date Record ed Physical Abuse 05/07/2025 Verbal Abuse 05/07/2025 Sex and Gender Information Value Date Recorded Sex Assigned at Male 09/17/2024 12:40 PM EST Legal Sex Male 2:57 AM EST Gender Identity Male 09/16/2024 9:02 AM EST Sexual Orientation Straight 09/17/2024 12 :40 PM EST Obstetrics History Last Filed Vital Signs Vital Sign Reading Time Taken Comments Blood Pressure 143/89 05/07/2025 2:55 PM EDT Pulse 63 05/07/2025 2:45 PM EDT Temperature 36.1 C (97 F) 05/07/2025 12:30 PM EDT Respiratory Rate 10 05/07/2025 2:45 PM EDT Oxygen Saturation 97% 05/07/2025 2:45 PM EDT Inhaled Oxygen Concentration - - Weight 82.6 kg (182 lb) 05/07/2025 7:48 AM EDT Height 180.3 cm (5' 11 ) 05/07/2025 7:48 AM EDT Body Mass Index 25.38 05/07/2025 7:48 AM EDT Plan of Treatment Upcoming Encounters Date Type Department Care Team (Late st Contact Info) Description 06/03/2025 10:00 AM EDT Consult Orthopedic Surgery - [place] [address] [phone] Christiano Tijerina, DPM [address] [address] Health Maintenance Due Date Last Done Comments Diabetes: Annual Foot Exam 1973 Diabetes: Annual Retina Eye Exam 1973 DTaP,Tdap,and Td Vaccines (1 - Tdap) 1982 Pneumococcal Vaccine: 50+ Years (1 of 2 - PCV) 1982 Colorectal Cancer Screening: Colonoscopy 10/15/2022 Depression Screening 10/15/2022 HIV Screening 10/15/2022 Hepatitis C Screening 10/15/2022 Lung Cancer Screening (Low Dose CT) 10/15/2022 RSV Immunization Adult Patients (1 - Risk 60-74 years 1-dose series) 2023 Influenza Vaccine (#1) 2025 , 09/18/2023, 09/17/2022, Additional history exists Social Influencers of Health Screening 09/23/2025 09/23/2024 Diabetes: Blood Sugar Control Test (HGBA1C) 10/27/2025 04/27/2025, 03/12/2025, 10/23/2024 Diabetes: Annual Urine Albumin-Creatinine Ratio (uACR) 03/12/2026 03/12/2025 Diabetes: Annual GFR (Glomerular Filtration Rate) 04/27/2026 04/27/2025, 03/12/2025, 10/23/2024 Hypertension/CHF/CAD Annual BMP Blood Test 04/27/2026 04/27/2025, 03/12/2025, 10/23/2024 Cholesterol Screening (Lipid Panel) 03/12/2030 03/12/2025 Zoster Vaccines Completed 01/19/2024, 09/12, 07/15/2020 COVID-19 Vaccine Completed 10/17/2024, 12/2023, 03/18/2022, Additional history exists HIB Vaccines Aged Out [...] this topic Medical Devices Implanted Type Area Floodplain Manager Device Identifier Shelf Expiration Date Model / Serial / Lot Surgiflo Hemostatic Matrix - S000 - [id number] Implanted:Qty: 1 on 05/07/2025 by Augusto Curtis MD at [facility] Hemostasis N/A: Spine Lumbar [employer] 01/02/2027 2991 / 000 / [id number] Tibial Bearing Insert Cr Sz 5 10mm Stry-Howm [id number] Implanted:Qty: 1 on 12/13/2023 by Bo Herrera MD Left: Knee [employer] 10/15/2028 5530-G-51 0-E / / [id number] Knee Fem Bsplt W Pa Stry-Howm [id number] Implanted:Qty: 1 on 12/13/2023 by Bo Herrera MD Left: Knee [employer] 08/13/2028 5517-F-50 1 / / [id number] Knee Bsplt Triathlon Ti Sz 5 Stry-How [id number] Implanted:Qty: 1 on 12/13/2023 by Bo Herrera MD Left: Knee [employer] 10/06/2028 5536-B-50 0 / / [id number] Procedures Procedure Name Priority Date/Time Associated Diagnosis Comments OXYGEN THERAPY, ADULT Routine 05/07/2025 12:11 PM EDT XR FLUORO UP TO 1 HOUR (STATISTICS)(NO REPORT) Routine 05/07/2025 11:35 AM EDT Pain XR SPINE 1 VIEW Routine 05/07/2025 11:35 AM EDT Pain TH AN ENDOTRACHEAL(NO CHARGE) Routine 05/07/2025 10:24 AM EDT WA BARGER FACETECTOMY & FORAMINOTOMY SINGLE VERTEBRAL SEGMENT LUMBAR 05/07/2025 10:07 AM EDT Spinal stenosis, lumbar region, with neurogenic claudication Case Notes PCPOutpatient SDS POCT GLUCOSE BLOOD Routine 05/07/2025 8: 00 AM EDT CBC WITH AUTO DIFFERENTIAL Routine 04/27/2025 4:57 PM EDT Mild intermittent asthma, uncomplicated HEMOGLOBIN A1C Routine 04/27/2025 4:57 PM EDT Type 2 diabetes mellitus with hyperglycemia (CMS/HCC V24, CMS/HCC V28) CBC AND DIFFERENTIAL Routine 04/27/2025 4:57 PM EDT Mild intermittent asthma, uncomplicated BASIC METABOLIC PANEL Routine 04/27/2025 4:57 PM EDT Essential (primary) hypertension URINALYSIS WITH REFLEX MICROSCOPIC Routine 03/12/2025 9:18 AM EDT Anemia, unspecified Encounter for general adult medical examination with abnormal findings Hyperlipemia Routine general medical examination at a health care facility Blood glucose elevated Special screening for malignant neoplasm of prostate Senile arthritis Urinary frequency Fatigue Median canaliform nail dystrophy Gastric mucosal hypertrophy with hemorrhage URINALYSIS WITH REFLEX MICROSCOPIC Routine 03/12/2025 9:18 AM EDT Anemia, unspecified Encounter for general adult medical examination with abnormal findings Hyperlipemia Routine general medical examination at a health care facility Blood glucose elevated Special screening for malignant neoplasm of prostate Senile arthritis Urinary frequency Fatigue Median canaliform nail dystrophy Gastric mucosal hypertrophy with hemorrhage MICROALBUMIN CREATININE URINE RATIO Routine 03/12/2025 9:18 AM EDT Anemia, unspecified Encounter for general adult medical examination with abnormal findings Hyperlipemia Routine general medical examination at a health care facility Blood glucose elevated Special screening for malignant neoplasm of prostate Senile arthritis Urinary frequency Fatigue Median canaliform nail dystrophy Gastric mucosal hypertrophy with hemorrhage CBC WITH AUTO DIFFERENTIAL Routine 03/12/2025 9:12 AM EDT Anemia, unspecified Encounter for general adult medical examination with abnormal findings Hyperlipemia Routine general medical examination at a health care facility Blood glucose elevated Special screening for malignant neoplasm of prostate Senile arthritis Urinary frequency Fatigue Median canaliform nail dystrophy Gastric mucosal hypertrophy with hemorrhage LIPID PANEL WITH REFLEX TO DIRECT LDL Routine 03/12/2025 9:12 AM EDT Anemia, unspecified Encounter for general adult medical examination with abnormal findings Hyperlipemia Routine general medical examination at a health care facility Blood glucose elevated Special screening for malignant neoplasm of prostate Senile arthritis Urinary frequency Fatigue Median canaliform nail dystrophy Gastric mucosal hypertrophy with hemorrhage THYROID STIMULATING HORMONE Routine 03/12/2025 9:12 AM EDT Anemia, unspecified Encounter for general adult medical examination with abnormal findings Hyperlipemia Routine general medical examination at a health care facility Blood glucose elevated Special screening for malignant neoplasm of prostate Senile arthritis Urinary frequency Fatigue Median canaliform nail dystrophy Gastric mucosal hypertrophy with hemorrhage URIC ACID Routine 03/12/2025 9:12 AM EDT Anemia, unspecified Encounter for general adult medical examination with abnormal findings Hyperlipemia Routine general medical examination at a health care facility Blood glucose elevated Special screening for malignant neoplasm of prostate Senile arthritis Urinary frequency Fatigue Median canaliform nail dystrophy Gastric mucosal hypertrophy with hemorrhage SEDIMENTATION RATE Routine 03/12/2025 9: 12 AM EDT Anemia, unspecified Encounter for general adult medical examination with abnormal findings Hyperlipemia Routine general medical examination at a health care facility Blood glucose elevated Special screening for malignant neoplasm of prostate Senile arthritis Urinary frequency Fatigue Median canaliform nail dystrophy Gastric mucosal hypertrophy with hemorrhage PROSTATE SPECIFIC ANTIGEN SCREEN Routine 03/12/2025 9:12 AM EDT Anemia, unspecified Encounter for general adult medical examination with abnormal findings Hyperlipemia Routine general medical examination at a health care facility Blood glucose elevated Special screening for malignant neoplasm of prostate Senile arthritis Urinary frequency Fatigue Median canaliform nail dystrophy Gastric mucosal hypertrophy with hemorrhage HEMOGLOBIN A1C Routine 03/12/2025 9:12 AM EDT Anemia, unspecified Encounter for general adult medical examination with abnormal findings Hyperlipemia Routine general medical examination at a health care facility Blood glucose elevated Special screening for malignant neoplasm of prostate Senile arthritis Urinary frequency Fatigue Median canaliform nail dystrophy Gastric mucosal hypertrophy with hemorrhage COMPREHENSIVE METABOLIC PANEL Routine 03/12/2025 9:12 AM EDT Anemia, unspecified Encounter for general adult medical examination with abnormal findings Hyperlipemia Routine general medical examination at a health care facility Blood glucose elevated Special screening for malignant neoplasm of prostate Senile arthritis Urinary frequency Fatigue Median canaliform nail dystrophy Gastric mucosal hypertrophy with hemorrhage CBC AND DIFFERENTIAL Routine 03/12/2025 9:12 AM EDT Anemia, unspecified Encounter for general adult medical examination with abnormal findings Hyperlipemia Routine general medical examination at a health care facility Blood glucose elevated Special screening for malignant neoplasm of prostate Senile arthritis Urinary frequency Fatigue Median canaliform nail dystrophy Gastric mucosal hypertrophy with hemorrhage from Last 3 Months Results * XR Fluoro Up To 1 Hour (Statistics)(No Report) (05/07/2025 11:35 AM EDT) Narrative RIS PACS/VR - 05/07/2025 11:36 AM EDT This order has been auto-finalized and does not contain a result. us Augusto Curtis MD IMG FLUOROSCOPY PROCEDURES Fin al Result RIS PACS/VR * XR Spine 1 View (05/07/2025 11:35 AM EDT) Anatomical Region Laterality Modality Spine Radiographic Irena ging 05/13/2025 12:3 0 AM EDT Impressions 05/13/2025 12:47 AM EDT As?above. Report reviewed and signed by : Dr. Jessica Ellis MD on 05/13/2025 12:47 AM. Workstation Name - [id number] -------- FINAL REPORT -------- Dictated By: Jessica Ellis Dictated Date: 05/13/2025 00:30 ET Assigned Physician: Jessica Ellis Reviewed and Electronically Signed By: Jessica Ellis Signed Date: 05/13/2025 00:47 ET Workstation ID: [id number] Transcribed By: Self Edit Transcribed Date: 05/13/2025 00:30 ET Narrative 05/13/2025 12:47 AM EDT EXAMINATION Intraoperative fluoroscopy HISTORY Procedure TECHNIQUE Fluoroscopy was utilized. FLOUROSCOPIC TIME: 0.0 minutes. NUMBER OF IMAGES: 1 TOTAL RADIATION: 6.7 mGy FINDINGS: Intra-procedural fluoroscopy was utilized. Please refer to the procedural note for further detail. Procedure Note Jessica Ellis MD - 05/13/2025 EXAMINATION Intraoperative fluoroscopy HISTORY Procedure TECHNIQUE Fluoroscopy was utilized. FLOUROSCOPIC TIME: 0.0 minutes. NUMBER OF IMAGES: 1 TOTAL RADIATION: 6.7 mGy FINDINGS: Intra-procedural fluoroscopy was utilized. Please refer to the proceduralnote for further detail. IMPRESSION: As?above. Report reviewed and signed by : Dr. Jessica Ellis MD on 05/13/2025 12:47 AM.Workstation Name - [id number] -------- FINAL REPORT -------- Dictated By: Jessica Ellis Dictated Date: 05/13/2025 00:30 ET Assigned Physician: Jessica Ellis Reviewed and Electronically Signed By: Jessica Ellis Signed Date: 05/13/2025 00:47 ET Workstation ID: [id number] Transcribed By: Self Edit Transcribed Date: 05/13/2025 00:30 ET us Augusto Curtis MD IMG XR PROCEDURES Final Result * TH AN ENDOTRACHEAL(NO CHARGE) (05/07/2025 10:24 AM EDT) Leland Cardenas DO - 05/07/2025 10:24 AM EDT Leland Fischer DO 05/07/2025 10:25 AM General Information and Staff Patient location during procedure: OR Anesthesiologist: Leland Fischer DO Resident/STEAM FRAME OPERATOR: Ivone Diaz CRNA Performed: anesthesiologist Performed by: Leland Fischer DO Authorized by: Leland Fischer DO Intubation Additional Comments Good view however some difficulty getting tube to pass through cords with direct Ivone first attempt and second MAC 3-4 Attending Amado attempt with MAC 3 view and intubation using bougie to intubate Urgency: elective Final Airway Details Successful airway: ETT Cuffed: yes Successful intubation technique: direct laryngoscopy Facilitating devices/methods: intubating stylet and Bougie Endotracheal tube insertion site: oral Blade: Raymond Blade size: #3 ETT size (mm): 8.0 Cormack-Lehane Classification: grade I - full view of glottis Placement verified by: chest auscultation and capnometry Number of attempts at approach: 3 or moreFinal airway type: endotracheal airway Indications and Patient Condition Indications for airway management: anesthesia Spontaneous Ventilation: absent Preoxygenated: yes Patient position: sniffing MILS maintained throughout Mask difficulty assessment: 1 - vent by mask us Leland Fischer DO ANESTHESIA ORDERABLES Final Result * POCT Glucose, blood (05/07/2025 8:00 AM EDT) [facility] Glucose POCT 141 70 - 199 mg/dL 05/07/2025 8:00 AM EDT [facility] Comment: Fasting Reference Range: 70-99 mg/dL Non-Fasting Reference Range: 70-199 mg/dL Blood Capillary blood specimen / Unknown 05/07/2025 8:00 AM EDT 05/07/2025 8:02 AM EDT us Augusto Curtis MD LAB POINT OF CARE TE ST DOCKED DEVICE UNSOLICITED RESULTS Final Result [facility] [address] [place] [address], [place] [phone] * CBC auto differential (04/27/2025 4:57 PM EDT) Only the most recent of2 resultswithin the time period is included. [facility] WBC 7.6 4.8 - 10.8 K/mcL LAB HEMETOLOGY METHOD 04/28/2025 2:16 PM EDT [facility] RBC 4.70 4.50 - 5.50 M/mcL LAB HEMETOLOGY METHOD 04/28/2025 2:16 PM EDT [facility] Hemoglobin 14.5 13.5 - 17.5 g/dL LAB HEMETOLOGY METHOD 04/28/2025 2:16 PM EDT [facility] Hematocrit 43.7 42.0 - 54.0 % LAB HEMETOLOGY METHOD 04/28/2025 2:16 PM EDT [facility] MCV 93.4 79.0 - 98.0 FL LAB HEMETOLOGY METHOD 04/28/2025 2:16 PM EDT [facility] MCH 31.0 27.0 - 32.0 pcg LAB HEMETOLOGY METHOD 04/28/2025 2:16 PM EDT [facility] MCHC 33.2 32.0 - 37.0 g/dL LAB HEMETOLOGY METHOD 04/28/2025 2:16 PM EDT [facility] RDW 13.5 11.0 - 15.0 % LAB HEMETOLOGY [facility] Platelets 204 130 - 400 K/mcL LAB HEMETOLOGY METHOD 04/28/2025 2:[facility] MPV 10.8 7.0 - 11.0 FL LAB HEMETOLOGY METHOD 04/28/2025 2:[facility] NRBC 0.0 <1.0 % LAB HEMETOLOGY METHOD 04/28/2025 2:16 PM [facility] NRBC Absolute 0.00 <0.10 K/mcL LAB HEMETOLOGY METHOD 04/28/2025 2:16 PM [facility] Neutrophils Relative 53.9 % LAB HEMETOLOGY METHOD 04/28/2025 2:16 PM [facility] Lymphocytes Relative 31.4 % LAB HEMETOLOGY METHOD 04/28/2025 2:16 PM [facility] Monocytes Relative 8.2 % LAB HEMETOLOGY METHOD 04/28/2025 2:16 PM [facility] Eosinophils Relative 5.3 % LAB HEMETOLOGY METHOD 04/28/2025 2:16 PM [facility] Basophils Relative 0.8 % LAB HEMETOLOGY METHOD 04/28/2025 2:16 PM [facility] Immature Granulocytes Relative 0.4 % LAB HEMETOLOGY METHOD 04/28/2025 2:16 PM [facility] Neutrophils Absolute 4.10 1.50 - 7.00 K/mcL LAB HEMETOLOGY METHOD 04/28/2025 2:16 PM EDT [facility] Lymphocytes Absolute 2.38 1.00 - 5.00 K/mcL LAB HEMETOLOGY METHOD 04/28/2025 2:16 PM EDT [facility] Monocytes Absolute 0.62 0.20 - 1.00 K/mcL LAB HEMETOLOGY METHOD 04/28/2025 2:16 PM EDT [facility] Eosinophils Absolute 0.40 0.00 - 0.50 K/[facility] LAB HEMETOLOGY METHOD 04/28/2025 2:16 PM EDT [facility] Basophils Absolute 0.06 0.00 - 0.20 K/[facility] LAB HEMETOLOGY METHOD 04/28/2025 2:16 PM EDT [facility] Immature Granulocytes Absolute 0.03 0.00 - 0.03 K/[facility] LAB HEMETOLOGY METHOD 04/28/2025 2:16 PM EDT [facility] Blood Venous blood specimen / Unknown 04/27/2025 4:57 PM EDT 04/28/2025 1:58 PM EDT us Tomasz Winchester MD LAB BLOOD ORDERABLES Final Res ult [facility] [address] [place] [address], * (ABNORMAL) Hemoglobin A1c (04/27/2025 4:57 PM EDT) Only the most recent of2 resultswithin the time period is included. Hemoglobin A1C 6.6(H) <6.5 % LAB CHEMISTRY METHOD 04/28/2025 9:51 PM EDT [facility] Mean Bld Glu Estim. 143 mg/dL LAB CHEMISTRY METHOD 04/28/2025 9:51 PM EDT [facility] Blood Venous blood specimen / Unknown 04/27/2025 4:57 PM EDT 04/28/2025 1:58 PM EDT us Tomasz Winchester MD LAB BLOOD ORDERABLES Final Res ult [facility] [address] [place] [address], [place] [phone] * (ABNORMAL) Basic metabolic panel (04/27/2025 4:57 PM EDT) Sodium 138 133 - 145 mmol/L LAB CHEMISTRY METHOD 04/28/2025 2:59 PM EDT [facility] Potassium 3.7 3.5 - 5.5 mmol/L LAB CHEMISTRY METHOD 04/28/2025 2:59 PM EDT [facility] Chloride 105 96 - 110 mmol/L LAB CHEMISTRY METHOD 04/28/2025 2:59 PM T [facility] CO2 29 21 - 32 mmol/L LAB CHEMISTRY METHOD [facility]/28[facility]2025 2:[facility] Anion Gap 4 3 - 11 LAB CHEMISTRY METHOD 04/28/2025 2:59 PM T [facility] Glucose 98 70 - 100 mg/dL LAB CHEMISTRY METHOD 04/28/2025 2:59 PM [facility] BUN 18 5 - 25 mg/dL LAB CHEMISTRY METHOD 04/28/2025 2:59 PM [facility] Creatinine 0.61(L) 0.70 - 1.30 mg/dL LAB CHEMISTRY METHOD 04/28/2025 2:59 PM EDT [facility] eGFR 109 >=60 mL/min/1. 73m2 LAB CHEMISTRY METHOD 04/28/2025 2:59 PM EDT [facility] Comment:Calculation based on the Chronic Kidney Disease Epidemiology Collaboration (CKD-EPI) equation refit without adjustment for race. BUN/Creatinine Ratio 29.5 LAB CHEMISTRY METHOD 04/28/2025 2:59 PM T [facility] Calcium 9.2 8.5 - 10.5 mg/dL LAB CHEMISTRY METHOD 04/28/2025 2:59 PM EDT [facility] Blood Venous blood specimen / Unknown 04/27/2025 4:57 PM EDT 04/28/2025 1:58 PM EDT us Tomasz Winchester MD LAB BLOOD ORDERABLES Final Res ult [facility] [address] [place] [address], * Urinalysis with reflex microscopic (03/12/2025 9:18 AM EDT) Specific [place] Urine 1.016 1.003 - 1.030 LAB URINALYSIS - AUTOMATED METHOD 03/12/2025 11:14 AM [facility] pH, Urine 8.0 5.0 - 8.0 pH LAB URINALYSIS - AUTOMATED METHOD 03/12/2025 11:14 AM [facility] Leukocytes, Urine Negative Negative LAB URINALYSIS - AUTOMATED METHOD 03/12/2025 11:14 AM [facility] Nitrite, Urine Negative Negative LAB URINALYSIS - AUTOMATED METHOD 03/12/2025 11:14 AM [facility] Protein, Urine Negative <=Trace mg/dL LAB URINALYSIS - AUTOMATED METHOD 03/12/2025 11:14 AM [facility] Glucose, Urine Negative Negative mg/dL LAB URINALYSIS - AUTOMATED METHOD 03/12/2025 11:14 AM [facility] Ketones, Urine Negative Negative mg/dL LAB URINALYSIS - AUTOMATED METHOD 03/12/2025 11:14 AM [facility] Urobilinogen, Urine 0.2 0.2 - 1.0 mg/dL LAB URINALYSIS - AUTOMATED METHOD 03/12/2025 11:14 AM [facility] Bilirubin, Urine Negative Negative LAB URINALYSIS - AUTOMATED METHOD 03/12/2025 11:14 AM EDT [facility] Blood, Urine Negative Negative LAB URINALYSIS - AUTOMATED METHOD 03/12/2025 11:14 AM EDT [facility] Urine Urine specimen obtained by clean catch procedure / Unknown Non-blood Collection / Unknown 03/12/2025 9:18 AM EDT 03/12/2025 11:00 AM EDT Tomasz Winchester MD LAB URINE ORDERABLES Final Res ult [facility] [address] [place] [address], [place] [phone] * (ABNORMAL) Microalbumin creatinine urine ratio (03/12/2025 9:18 AM EDT) Creatinine, Urine 77.0 mg/dL LAB CHEMISTRY METHOD 03/12/2025 12:17 PM EDT [facility] Microalb, Ur 22.8 0.0 - 29.0 mg/L LAB CHEMISTRY METHOD 03/12/2025 12:17 PM EDT [facility] Microalb/Creat Ratio 30(H) <30 mg/g creat LAB CHEMISTRY METHOD 03/12/2025 12:17 PM EDT [facility] Urine Urine specimen obtained by clean catch procedure / Unknown Non-blood Collection / Unknown 03/12/2025 9:18 AM EDT 03/12/2025 11:00 AM EDT us Tomasz Winchester MD LAB URINE ORDERABLES Final Res ult [facility] [address] [place] [address], [place] [phone] * Prostate specific antigen screen (03/12/2025 9:12 AM EDT) PSA 1.07 0.00 - 4.00 ng/mL LAB CHEMISTRY METHOD 03/12/2025 1:19 PM EDT [facility] Blood Venous blood specimen / Unknown Venipuncture / Unknown 03/12/2025 9:12 AM EDT 03/12/2025 10:57 AM EDT Narrative [facility] - 03/12/2025 1:19 PM EDT The Siemens Advia Centaur Chemiluminescent Immunoassay is used. Results obtained with different assay methods or kits cannot be used interchangeably. Results cannot be interpreted as absolute evidence of the presence or absence of malignant disease. us Tomasz Winchester MD LAB BLOOD ORDERABLES Final Res ult [facility] [address] [place] [address], [place] [phone] * (ABNORMAL) Lipid panel with reflex to direct LDL (03/12/2025 9:12 AM EDT) Cholesterol 196 0 - 200 mg/dL LAB CHEMISTRY METHOD 03/12/2025 12:00 PM EDT [facility] Triglycerides 73 0 - 150 mg/dL LAB CHEMISTRY METHOD 03/12/2025 12:00 PM T [facility] HDL 57 >=40 mg/dL LAB CHEMISTRY METHOD 03/12/2025 12:00 PM EDT [facility] LDL Calculated 124(H) 0 - 100 mg/dL LAB CHEMISTRY METHOD 03/12/2025 12:00 PM [facility] VLDL Cholesterol John 14.6 mg/dL LAB CHEMISTRY METHOD 03/12/2025 12:00 PM [facility] Non HDL Chol. (LDL+VLDL) 139 <145 mg/dL LAB CHEMISTRY METHOD 03/12/2025 12:00 PM [facility] Chol/HDL Ratio 3.4 0.0 - 4.4 LAB CHEMISTRY METHOD 03/12/2025 12:00 PM EDT [facility] Blood Venous blood specimen / Unknown Venipuncture / Unknown 03/12/2025 9:12 AM EDT 03/12/2025 10:57 AM EDT Tomasz Winchester MD LAB BLOOD ORDERABLES Final Res ult [facility] [address] [place] [address], [place] [phone] * Sedimentation rate (03/12/2025 9:12 AM EDT) Sed Rate 6 0 - 20 mm/hr LAB HEMETOLOGY METHOD 03/12/2025 11:56 AM EDT [facility] Blood Venous blood specimen / Unknown Venipuncture / Unknown 03/12/2025 9:12 AM EDT 03/12/2025 10:53 AM EDT us Tomasz Winchester MD LAB BLOOD ORDERABLES Final Res ult Performing Organization Address [facility]/ZIP Co de Phone Number [facility] [address] [place] [address], [place] [phone] * (ABNORMAL) Uric acid (03/12/2025 9:12 AM EDT) Uric Acid 3.6(L) 3.7 - 9.2 mg/dL LAB CHEMISTRY METHOD 03/12/2025 11:54 AM EDT [facility] Blood Venous blood specimen / Unknown Venipuncture / Unknown 03/12/2025 9:12 AM EDT 03/12/2025 10:57 AM EDT us Tomasz Winchester MD LAB BLOOD ORDERABLES Final Res ult [facility] [address] [place] [address], [place] [phone] * Thyroid stimulating hormone (03/12/2025 9:12 AM EDT) [facility] TSH 0.69 0.40 - 4.00 mcIU/mL LAB CHEMISTRY METHOD 03/12/2025 2:29 PM [facility] Blood Venous blood specimen / Unknown Venipuncture / Unknown 03/12/2025 9:12 AM EDT 03/12/2025 10:57 AM EDT us Tomasz Winchester MD LAB BLOOD ORDERABLES Final Res ult [facility] [address] [place] [address], [place] [phone] * (ABNORMAL) Comprehensive metabolic panel (03/12/2025 9:12 AM EDT) [facility] Sodium 141 133 - 145 mmol/L LAB CHEMISTRY METHOD 03/12/2025 12:00 PM [facility] Potassium 3.7 3.5 - 5.5 mmol/L LAB CHEMISTRY METHOD 03/12/2025 12:00 PM [facility] Chloride 106 96 - 110 mmol/L LAB CHEMISTRY METHOD 03/12/2025 12:00 PM [facility] CO2 28 21 - 32 mmol/L LAB CHEMISTRY METHOD 03/12/2025 12:00 PM [facility] Anion Gap 7 3 - 11 LAB CHEMISTRY METHOD 03/12/2025 12:00 PM [facility] Glucose 117(H) 70 - 100 mg/dL LAB CHEMISTRY METHOD 03/12/2025 12:00 PM [facility] BUN 14 5 - 25 mg/dL LAB CHEMISTRY METHOD 03/12/2025 12:00 PM [facility] Creatinine 0.58(L) 0.70 - 1.30 mg/dL LAB CHEMISTRY METHOD 03/12/2025 12:00 PM [facility] eGFR 110 >=60 mL/min/1. 73m2 LAB CHEMISTRY METHOD 03/12/2025 12:00 PM [facility] Comment:Calculation based on the Chronic Kidney Disease Epidemiology Collaboration (CKD-EPI) equation refit without adjustment for race. BUN/Creatinine Ratio 24.1 LAB CHEMISTRY METHOD 03/12/2025 12:00 PM [facility] Calcium 8.8 8.5 - 10.5 mg/dL LAB CHEMISTRY METHOD 03/12/2025 12:00 PM [facility] AST (SGOT) 15 10 - 42 unit/L LAB CHEMISTRY METHOD 03/12/2025 12:00 PM [facility] ALT (SGPT) 25 10 - 60 unit/L LAB CHEMISTRY METHOD 03/12/2025 12:00 PM [facility] Alkaline Phosphatase 77 42 - 121 unit/L LAB CHEMISTRY METHOD 03/12/2025 12:00 PM [facility] Total Protein 6.9 6.0 - 8.0 g/dL LAB CHEMISTRY METHOD 03/12/2025 12:00 PM [facility] Albumin 3.9 3.2 - 5.0 g/dL LAB CHEMISTRY METHOD 03/12/2025 12:00 PM [facility] Total Bilirubin 0.4 0.0 - 1.4 mg/dL LAB CHEMISTRY METHOD 03/12/2025 12:00 PM [facility] Blood Venous blood specimen / Unknown Venipuncture / Unknown 03/12/2025 9:12 AM EDT 03/12/2025 10:57 AM EDT us Tomasz Winchester MD LAB BLOOD ORDERABLES Final Res ult [facility] [address] [place] [address], [place] [phone] from Last 3 Months Insurance [facility] Advance Directives Documents on File Type Date Recorded Patient Travel Rn Expl anation Advance Directives and Living Will 05/07/2025 7:17 AM HEALTHCARE PROXY * Full Code - Default (Latest Code Status on File) Date Activated Date Inactivated Comments 05/07/2025 7:24 AM 05/07/2025 6:22 PM This is orde r is used when code status has not been discussed with the patient, or code status is otherwise unknown/unconfirmed To update the patient's code status, place a code status order. Do not modify or discontinue any currently active code status orders. Care Teams Chief Wharfinger Relationship Specialty Start Date End Date Tomasz Winchester MD [address] [place] [address] PCP - General 01/04/23
== END 2025-05-21 09:20 | disposition home or self-care (01) ==
LOC: HO.RHES 08:38
PROVIDERS: PCP Internal Medicine; Visit Provider Internal Medicine Rheumatology
DX: M19.041 Primary osteoarthritis, right hand (principal); M19.042 Primary osteoarthritis, left hand; Z79.1 Long term (current) use of non-steroidal anti-inflammatories (NSAID); R20.2 Paresthesia of skin
CPT/HCPCS: 20600; 99213

== ENCOUNTER 2025-05-21 08:37 | Outpatient (REF) | payer BC, SELFPAY ==
[2025-05-21 14:41] LABS: Alanine Aminotransferase 27 U/L (0-40); Aspartate Amino Transferase 22 U/L (5-37); Estimated Glomerular Filt Rate > 60
== END 2025-05-21 08:38 | disposition home or self-care (01) ==
LOC: HO.HKASLDS 08:37
PROVIDERS: PCP Internal Medicine; Visit Provider Internal Medicine Rheumatology
DX: M19.041 Primary osteoarthritis, right hand (principal); M19.042 Primary osteoarthritis, left hand; R20.2 Paresthesia of skin; Z79.1 Long term (current) use of non-steroidal anti-inflammatories (NSAID)
CPT/HCPCS: 20600; 36415; 82565; 84450; 84460; J2003; J3300

== ENCOUNTER 2025-10-13 08:47 | Outpatient (AMB) | payer BC, SELFPAY ==
--- NOTE | 2025-10-13 08:48 | A.OFFVIS_ITS ---
Vital Signs 10/13/25 08:49 Height 5 ft 11 in Weight 189 lb BMI 26.4 BP 160/70 H Blood Pressure Location Rt brachial Position Sitting Pulse 90 Pulse Source Pulse Oximeter Pulse Oximetry (%) 100 Oxygen Delivery Method Room Air Intake Visit Reasons: 3months Intake Note: patient presents for arthritis follow up Accompanied by: Self / Same As Patient Allergies No Known Allergies Allergy (Verified 10/13/25 08:49) HPI HPI 3months: Details: Pain in hands 5/10 tolerable. injections helped. No recent infection. His most pain is in his 2nd and 1st fingers. He continues to do exercises learned from OT in the past. Sometimes he does exercises more than twice a day. He remains home on SSI due to failed back surgery. Hand pain improves with celebrex and diclofenac gel 1%. [facility] Surgical History History of back surgery History of left knee replacement Physical Exam Vital Signs: Last Vital Signs Pulse 90 10/13/25 08:49 BP 160/70 H 10/13/25 08:49 Pulse Ox 100 10/13/25 08:49 Oxygen Delivery Method Room Air 10/13/25 08:49 BMI result Body Mass Index 26.4 Const Other: General: Comfortable Skin: No lesions seen MSK: Heberden nodes and Chaka's nodes present. He has squaring of CMCs. Tender bilateral first MCPs and PIPs. He is able to make a fist with his hands. Office Procedures AMB Joint Injection/Aspiration Joint Injection/Aspiration Details: Bilateral 2nd PIPs Prep: site was prepped using aseptic technique Injected into each site: 10 mg of, Kenalog, with 0.2 mL of and 1% plain lidocaine Procedure: Informed verbal consent was obtained. The patient tolerated the procedure well. Postprocedure protocol was discussed with patient. Coding - Small Joint Procedure code (CPT) selection complete AMB Joint Injection/Aspiration Coding - Small Joint Procedure code (CPT) selection complete Office Meds lidocaine (PF) 10 mg/mL (1 %) injection solution Performing Provider: Patric Juarez MD Performing [place] [facility] Administered by: Patric Juarez MD on 10/13/25 09:15 Dose Route Admin Location Dispensed Lot Number Expiration Date [facility] Found[employer] Tender 0.25 mL Infiltration 2 mL [id number] 07/12/28 85152-028-28 [employer] Total Dispensed Waste 2 mL 87.5 % Kenalog 40 mg/mL suspension for injection Performing Provider: Patric Juarez MD Performing Location[place] [facility] Administered by: Patric Juarez MD on 10/13/25 09:15 Dose Route Admin Location Dispensed Lot Number Expiration Date [facility] Found[employer] Tender 10 mg Tendon Sheath Inj. 1 mL [id number] 05/11/27 [address]- 1 [employer] Total Dispensed Waste 1 mL 75 % lidocaine (PF) 10 mg/mL (1 %) injection solution Performing Provider: Patric Juarez MD Performing Location: [facility] Administered by: Patric Juarez MD on 10/13/25 09:15 Dose Route Admin Location Dispensed Lot Number Expiration Date [facility] Found[employer] Tender 0.25 mL Infiltration 2 mL [id number] 07/12/28 00139-682-17 [employer] Total Dispensed Waste 2 mL 87.5 % Kenalog 40 mg/mL suspension for injection Performing Provider: Patric Juarez MD Performing Location: [facility] Administered by: Patric Juarez MD on 10/13/25 09:15 Dose Route Admin Location Dispensed Lot Number Expiration Date [facility] Found[employer] Tender 10 mg Tendon Sheath Inj. 1 mL [id number] 05/11/27 [address]- 1 [employer] Total Dispensed Waste 1 mL 75 % Assessment & Plan Assessment & Plan (1) Osteoarthritis of hands, bilateral: Comment: Bilateral 1st MCP osteoarthritis pain is better controlled with last set of cortisone injection. His most pain is in bilateral 2nd PIPs. We reviewed x-rays together. There are changes of the MCPs related to secondary osteoarthritis. Workup for hemochromatosis was negative. No radiographic finding of CPPD disease. He denies history of psoriasis. Code(s): M19.041 - Primary osteoarthritis, right hand; M19.042 - Primary osteoarthritis, left hand Category: Medical Qualifiers: Osteoarthritis type: primary Qualified Code(s): M19.041 - Primary osteoarthritis, right hand; M19.042 - Primary osteoarthritis, left hand Plan: Patient received bilateral 2nd PIP cortisone injections Continue Celebrex 200 mg twice a day Labs for drug monitoring on chronic NSAID UTD (due every 6 months). I will check labs next visit. 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 200 mg PO BID 180 caps 1RF 90 days Coding Level of Care Code Est Pt Level 3 (81672) Complex visit Add On G2211 Diagnoses Primary osteoarthritis of both hands M19.041; M19.042 Osteoarthritis type: primary [facility] (current) use of non-steroidal anti-inflammatories (nsaid) Z79.1 CPT Codes Coding - 24305 - Small joint: 86135 - Small Joint ([id number]) Coding - 54846 - Small joint: 93930 - Small Joint ([id number])
[2025-10-13 08:49] VITALS: BP 160/70; PULSE 90; O2SAT 100; BMI 26.4
--- OUTSIDE RECORDS SUMMARY | 2025-10-13 08:56 | XMS_ITS | Continuity of Care Document ---
Author Organization [place] [facility] Londono [facility] [place] Address [address] [place] [address] Care Team Providers Care Driver'S License Reviewing Officer Name Role Phone ESTELA LOPEZ Primary Care Provider ESTELA LOPEZ Referring Provider [phone] Assessment No assessment recorded. Plan of Treatment Reminders Order Date Submit Date Provider Last Modified By Organization Details Last Modified Time Details Appointments FOLLOW UP 2024 01:15P Kandi Herrera MD Not available Not available Not available Lab None recorded. Referral None recorded. Procedures None recorded. Surgeries None recorded. Imaging XR, lumbosacr al spine, 2 or 3 view 2024 025 [email or web address] [facility], [address] [place] [address] , [address], [place], [address], 08/25/2025 16:29:58 Medication Orders meloxicam 15 mg tablet 2024 025 [id number], [address] [place], [place], [id number], 08/25/2025 15:11:03 Patient TargetsNo targets recorded. Patient Instructions Encounter Date Encounter Id Patient Instructions Last Modified By Organization Details Last Modified Time 08/25/2025 [id number] Radiographs AP flexion-extension lateral radiographs lumbosacral spine were obtained in the [facility] facility. Pertinent findings include multiple levels of disc degeneration most prominently at L3-4 and L4-5 with degenerative osteophytes. There is relative lumbar flatback without evidence of instability. There is no meaningful coronal plane deformity. [email or web address] Not available 08/25/2025 15:10:19 Reason for Referral None Reported. Problems Name Problem SNOMED Code Status Onset Date Resolution Date Notes Provider Name and Address Organization Details Recorded Time Problem 09458064 Active No known active problems Not Available [facility] 5 23:30:31 Osteoarth ritis of right knee joint 56558957622 9100 Active 2022 LEVON SANTOS PA-C [address], [place], [address] , [place] [facility] 4 10:32:13 Bilateral osteoarth ritis of knees 13877829185 9107 Active 2022 Not Available [facility] 3 11:40:46 Pain of right calf 46734318404 47356 Active 2022 LEVON MARTINEZ PA-C [address], [place], [address] , [place] [facility] 3 08:37:18 Osteoarth ritis of left knee joint 98411310153 9109 Active 2022 LEVON MARTINEZ PA-C [address], [place], [address] , [place] [facility] 3 06:42:48 Arthritis of knee 907895905 Active 2022 Bo Herrera MD [address], [place], [address] , [place] [facility] 3 09:27:54 Bilateral arthritis of knees 53529211778 85981 Active 2022 LEVON MARTINEZ PA-C [address], [place], [address] , [place] [facility] 3 08:28:12 Effusion of joint of right knee 69427223377 9104 Active 2022 LEVON MARTINEZ PA-C [address], [place], [address] , [place] [facility] 3 10:51:12 Effusion of joint 491317423 Active 2022 LEVON MARTINEZ PA-C [address], [place], [address] , [place] [facility] 3 10:52:27 History of raised blood lipids 414269798 Active 2023 History of hyperlipi demia Not Available [facility] 5 23:30:27 Tooth disorder 428160393 Active 2023 Poor dentition Not Available [facility] 5 23:30:27 History of hypertens ion 503089640 Active 2023 History of hypertens ion Not Available [facility] 5 23:30:28 Osteoarth ritis of left hip joint 81111304081 9108 Active 2023 Osteoarth ritis of left hip Not Available [facility] 5 23:30:29 At increased risk of apnea 276583923 Active 2023 At risk for sleep apnea Not Available [facility] 5 23:30:30 Smoker 58614127 Active 2023 Smoking Not Available [facility] 5 23:30:30 Arthritis of left knee joint 43701696196 66798 Active 2023 LEVON SANTOS PA-C [address], [place], [address] , [place] [facility] 4 10:29:56 History of left total knee replaceme nt 15783363627 79555 Active 2023 LEVON SANTOS PA-C [address], [place], [address] , [place] [facility] 4 10:58:44 Acute low back pain 659366458 Active 2023 Augusto Curtis MD [address], [place], [address] , [place] [facility] 5 14:59:41 Lumbar spondylos is 930439433 Active 2023 Augusto Curtis MD [address], [place], [address] , [place] [facility] 4 11:50:58 Sacroilia c disorder 306062602 Active 2023 TJ JEONG PA-C [address], [place], [address] , [place] [facility] 4 10:25:18 Lumbar radiculop athy 502589089 Active 2023 Lumbar radiculop athy Not Available [facility] 5 23:30:28 Spinal stenosis of lumbar region 08792796 Active [address], [place], [address] , [place] [facility] 4 10:00:10 Cervical radiculop athy 38549274 Active [address], [place], [address] , [place] [facility] 5 11:41:23 Postopera tive pain 549229461 Active 2024 TJ JEONG PA-C [address], [place], [address] , [place] [facility] 5 10:38:51 History of excision of lamina of lumbar vertebra for decompres lg of spinal cord 849995268 Active [address], [place], [address] , [place] [facility] 5 11:04:40 Cervical spondylos is 071923612 Active [address], [place], [address] , [place] [facility] 5 11:03:52 Problem Notes None recorded. Procedures Surgical History Date Name Laterality Status Provider Name and Address Organization Details Recorded Time 025 Orthovisc Knee Inj completed Bo Herrera MD [address], [place], [address], [place] [facility] 07/10/2025 13:10:33 025 Orthov[facility] Knee Inj completed Bo Herrera MD [address] [facility],[place] [address], [place], [address], [place] [facility] 07/03/2025 09:30:07 025 Orthovisc Knee Inj completed Bo Herrera MD [address], [place], [address], [place] [facility] 06/25/2025 11:28:47 025 LUMBAR SPINE SURGERY (SURG) completed Lindsay Gue[place] [facility] 05/08/2025 08:38:24 024 Euflexxa Knee Inj w/US completed LEVON SANTOS PA-C [address], [place], [address], [place] [facility] 08/20/2024 10:42:28 024 Euflexxa Knee Inj w/US completed LEVON SANTOS PA-C [address], [place], [address], [place] [facility] 08/13/2024 10:32:48 024 Euflexxa Knee Inj w/US completed LEVON SANTOS PA-C [address], [place], [address], [place] [facility] 08/06/2024 10:31:59 024 Euflexxa Knee Inj completed Rosalina Marin [place] - [facility] 11/15/2023 09:57:04 023 Euflexxa Knee Inj completed BARBARA GUERRA PA-C [address], [place], [address], [place] [facility] 11/07/2023 16:05:37 023 Euflexxa Knee Inj completed LEVON MARTINEZ PA-C [address], [place], [address], [place] [facility] 10/31/2023 10:45:30 023 Knee Joint/Bursa Asp & Inj completed LEVON MARTINEZ PA-C [address], [place], [address], [place] [facility] 10/01/2023 09:18:27 023 Euflexxa Knee Inj completed LEVON MARTINEZ PA-C [address], [place], [address], [place] [facility] 04/30/2023 07:20:21 023 Euflexxa Knee Inj completed LEVON MARTINEZ PA-C [address], [place], [address], [place] [facility] 04/23/2023 11:07:50 023 Euflexxa Knee Inj completed LEVON MARTINEZ PA-C [address], [place], [address], [place] [facility] 04/16/2023 08:54:09 repair [facility] musculotendinous cuff [facility] 09/27/2023 10:40:22 Imaging Results None recorded. [...] AT BEDTIME NEEDED FOR PAIN OR SPASM active Not Available Not Available No t Available meloxicam 15 mg tablet TAKE 1 TABLET BY MOUTH EVERY DAY NEEDED active Not Available Not Available No t Available ondansetron HCl 4 mg tablet 01/17 [...] TABLET BY MOUTH FOUR TIMES DAILY NEEDED 07/27 completed Not Available Not Available Not Available hydrocortis one 1 % topical cream APPLY TO AFFECTED AREA TWICE A DAY 01/17 completed Not Available Not Available Not Available pantoprazol e 40 mg tablet,dilcia yed release 07/27 completed Not Available Not Available Not Available nicotine 21 mg/24 hr daily transdermal patch APPLY 1 PATCH TOPICALLY ONCE DAILY active Not Available Not Available No t Available gabapentin 300 mg capsule TAKE 1 CAPSULE BY MOUTH THREE TIMES DAILY active Not Available Not Available No t Available methylpredn isolone 4 mg tablets in a dose pack FOLLOW PACKAGE DIRECTION S 08/18 completed Not Available Not Available Not Available oxycodone 5 mg tablet TAKE 1 TABLET BY MOUTH EVERY 4 HOURS NEEDED 07/03 completed Not Available Not Available Not Available hydrocortis one 1 % topical cream packet 2 (two) times a day as needed. active Not Available Not Available No t Available rosuvastati n 10 mg tablet TAKE 1 TABLET BY MOUTH DAILY AT BEDTIME active Not Available Not Available No t Available ORTHOVISC 30 mg/2 mL intra-artic ular syringe Inject 2 mL by intra-art icular route. 2024 active Not Available Not Available Not Avai lable chlorhexidi ne gluconate 0.12 % mouthwash PLEASE SEE ATTACHED FOR DETAILED DIRECTION S 09/27 completed Not Available Not Available Not Available Euflexxa 10 mg/mL (mw 2.4-3.6 million) intra-artic ular syringe Inject 2 mL by intra-art icular route for 21 days. 07/27 completed Not Available Not Available Not Available GaviLyte-G 236 gram-22.74 gram-6.74 gram-5.86 gram oral [...] and Address Organization Details Last Updated DateTime 08/25/2025 177.8 cm 26.8 kg/m2 14821.77 g Sandie Good [place] - [facility] 08/25/2025 14:55:49 Social History Question Answer Notes LastModified by [employer] Details LastModified Time Tobacco Smoking Status Current Every Day Smoker Rosalina Marin [place], [place] - [facility] 09/27/2023 10:23:41 How Much Tobacco Do You Smoke? 1 PPD Information not available 09/27/2023 Sex: Unknown Functional Status Question Answer Note LastModified by [employer] Details LastModified Time How many times per [...] Diagnosis SNOMED-CT Code Diagnosis ICD10 Code Diagnosis IMO Codes Diagnosis Note [id number] MD RUTHIE [address] [facility] [address] [place] [address] 07/27/2025 10:00:23 07/27/2025 10:18:47 Arthritis of left knee joint 1361801545 362287 M13.862 Lumbar spondylosis 32644 0009 M47.816 Cervical spondylosis 387 600060 M47.812 75116 History of excision of lamina of lumbar vertebra for decompression of spinal cord 266431577 Z98.749 [id number] 05/06/2025: Bilateral L4-5 midline sparing laminectom ies and foraminoto mies. [id number] MD RUTHIE Alford [facility] [address] [place] [address] 08/25/2025 14:46:32 08/25/2025 15:20:54 History of operative procedure on lumbar spinal structure 941072787 Z98.890 22710153 60-year-ol d male returns for 3 to 4 days of intense low back pain. He has been in therapy. Prior to To that he would note some left-sided low back pain after standing or walking for about 15 minutes. His preoperati ve severe pain had resolved.Lorie delgado was last seen on July 27, 2025 in follow-up of his L4-5 decompress ion on May 07, 2025. At the last visit he was doing well. He also had intervenin g problem with his neck that resolved.T xiomara he states that without accident or injury 3 to 4 days he developed severe pain. He has not had any imaging since prior to the surgery.Ph ysical examinatio n he notes increased discomfort when he rises out of the chair. He has no gross neurologic deficit. His lumbar spine is not tender.His radiograph s reveal spondylosi s.We discussed options. He is generally doing well. He will continue physical therapy. He is given a prescripti on for meloxicam which she will use on an as-needed basis.He understand s I am retiring. He will follow-up with our office on an as-needed basis. Acute low back pain 2788 58850 M54.50 [id number] Additional diagnosis detail: Acute bilateral low back pain without sciatica History of excision of lamina of lumbar vertebra for decompression of spinal cord 216997579 Z98.358 [id number] 05/06/2025: Bilateral L4-5 midline sparing laminectom ies and foraminoto mies. Health Concerns Section Related Observation LastModified by Organization Detai ls LastModified Time None Recorded Concern Status LastModified by Organization Details LastModified Time None Recorded Payers Encounter Date Sequence Insurance Name Policy Number Policy Conway Covered Member ID Conway Member ID Guarantor Name 08/25/2025 1 [employer] [id number] Leon Hathaway [id number] Leon Hathaway
--- OUTSIDE RECORDS SUMMARY | 2025-10-13 08:56 | XMS_ITS | Encounter Summary ---
Author Organization [facility] Address [address] [place] [address] Care Team Providers Care Billet Shearer Name Role Phone Tomasz Winchester MD Primary Care Provider [phone] Encounter Details Date Type Department Care Team (Latest Contact Info) Description 04/27/[address] [facility] - [facility] Lab [address] [facility] [place] [id number] Tomasz Winchester MD [address] [place] [address] Essential (primary) hypertension; Type 2 diabetes mellitus without complications (CMS/HCC V24, CMS/HCC V28); Mild intermittent asthma, uncomplicated; Type 2 diabetes mellitus with hyperglycemia (CMS/HCC V24, CMS/HCC V28) Social History Tobacco Use Types Packs/Day Years Used Date Smoking Tobacco: Every Day Cigarettes 1 43.9 Started: 1981 Smokeless Tobacco: Never Alcohol Use Standard Drinks/Week Comments Yes 2 [...] Date Recorded What is your living situation? Unrecognized valu e 09/23/2024 Interpersonal Safety Answer Date Record ed Physical Abuse Unrecognized value 09/23/2024 Verbal Abuse Unrecognized value 09/23/2024 Sex and Gender Information Value Date Recorded Sex Assigned at Male 09/17/2024 12:40 PM EST Legal Sex Male 2:57 AM EST Gender Identity Male 09/16/2024 9:02 AM EST Sexual Orientation Straight 09/17/2024 12 :40 PM EST documented as of this encounter Plan of Treatment Upcoming Encounters Date Type Department Care Team (Late st Contact Info) Description 12/07/2025 10:00 AM EST Office Visit Orthopedic Surgery - [place] [address] [address] Christiano Tijerina, DPM [address] [address] documented as of this encounter Procedures Procedure Name Priority Date/Time Associated Diagnosis Comments CBC WITH AUTO DIFFERENTIAL Routine 08/17/2025 8:56 AM EDT Mild intermittent asthma, uncomplicated CBC AND DIFFERENTIAL Routine 08/17/2025 8:56 AM EDT Mild intermittent asthma, uncomplicated HEMOGLOBIN A1C Routine 08/17/2025 8:56 AM EDT Type 2 diabetes mellitus with hyperglycemia ([facility] V24, [facility] V28) documented in this encounter Results * CBC auto differential (08/17/2025 8:56 AM EDT) WBC 6.5 4.8 - 10.8 K/mcL LAB HEMETOLOGY METHOD 08/17/2025 9:[address] [facility] RBC 4.80 4.50 - 5.50 M/mcL LAB HEMETOLOGY METHOD 08/17/2025 9:[address] [facility] Hemoglobin 14.7 13.5 - 17.5 g/dL LAB HEMETOLOGY METHOD 08/17/2025 9:22 AM [facility] Hematocrit 43.7 42.0 - 54.0 % LAB HEMETOLOGY METHOD 08/17/2025 9:22 AM [facility] MCV 91.6 79.0 - 98.0 FL LAB HEMETOLOGY METHOD 08/17/2025 9:22 AM [facility] MCH 30.8 27.0 - 32.0 pcg LAB HEMETOLOGY METHOD 08/17/2025 9:22 AM [facility] MCHC 33.6 32.0 - 37.0 g/dL LAB HEMETOLOGY METHOD 08/17/2025 9:22 AM [facility] RDW 12.6 11.0 - 15.0 % LAB HEMETOLOGY METHOD 08/17/2025 9:22 AM [facility] Platelets 209 130 - 400 K/mcL LAB HEMETOLOGY METHOD 08/17/2025 9:22 AM [facility] MPV 10.1 7.0 - 11.0 FL LAB HEMETOLOGY METHOD 08/17/2025 9:22 AM [facility] NRBC 0.0 <1.0 % LAB HEMETOLOGY METHOD 08/17/2025 9:22 AM [facility] NRBC Absolute 0.00 <0.10 K/mcL LAB HEMETOLOGY METHOD 08/17/2025 9:22 AM [facility] Neutrophils Relative 48.8 % LAB HEMETOLOGY METHOD 08/17/2025 9:22 AM [facility] Lymphocytes Relative 35.5 % LAB HEMETOLOGY METHOD 08/17/2025 9:22 AM [facility] Monocytes Relative 8.7 % LAB HEMETOLOGY METHOD 08/17/2025 9:22 AM [facility] Eosinophils Relative 5.6 % LAB HEMETOLOGY METHOD 08/17/2025 9:[address] [facility] Basophils Relative 0.9 % LAB HEMETOLOGY METHOD 08/17/2025 9:[address] [facility] Immature Granulocytes Relative 0.5 % LAB HEMETOLOGY METHOD 08/17/2025 9:[address] [facility] Neutrophils Absolute 3.16 1.50 - 7.00 K/mcL LAB HEMETOLOGY METHOD 08/17/2025 9:[address] [facility] Lymphocytes Absolute 2.30 1.00 - 5.00 K/mcL LAB HEMETOLOGY METHOD 08/17/2025 9:[address] [facility] Monocytes Absolute 0.56 0.20 - 1.00 K/mcL LAB [facility] Eosin[facility] Absolute 0.36 0.00 - 0.50 K/mcL LAB HEMETOLOGY METHOD 08/17/2025 9:[address] [facility] Basophils Absolute 0.06 0.00 - 0.20 K/mcL LAB HEMETOLOGY METHOD 08/17/2025 9:[address] [facility] Immature Granulocytes Absolute 0.03 0.00 - 0.03 K/mcL LAB HEMETOLOGY METHOD 08/17/2025 9:[address] [facility] Blood Venous blood specimen / Unknown Venipuncture / Unknown 08/17/2025 8:56 AM EDT 08/17/2025 9:11 AM EDT us Tomasz Winchester MD LAB BLOOD ORDERABLES Final Res ult [facility] [address] [place] [address], * (ABNORMAL) Hemoglobin A1c (08/17/2025 8:56 AM EDT) Hemoglobin A1C 6.5(H) <6.5 % LAB CHEMISTRY METHOD 08/17/2025 1:[address] [facility] Mean Bld Glu Estim. 140 mg/dL LAB CHEMISTRY METHOD 08/17/2025 1:[address] [facility] Blood Venous blood specimen / Unknown Venipuncture / Unknown 08/17/2025 8:56 AM EDT 08/17/2025 9:11 AM EDT us Tomasz Winchester MD LAB BLOOD ORDERABLES Final Res ult [facility] [address] [place] [address], documented in this encounter Visit Diagnoses Diagnosis Essential (primary) hypertension Unspecified essential hypertension Type 2 diabetes mellitus without complications ([facility] V24, [facility] V28) Mild intermittent asthma, uncomplicated Type 2 diabetes mellitus with hyperglycemia ([facility]/HCC V24, [facility] V28) documented in this encounter Care Teams Billet Shearer Relationship Specialty Start Date End Date Tomasz Winchester MD [address] [place] [address] PCP - General 01/04/23 documented as of this encounter
--- OUTSIDE RECORDS SUMMARY | 2025-10-13 08:56 | XMS_ITS | Continuity of Care Document ---
Author Organization [place] [facility] Sara Londono AONE [place] Address [address] [place] [address] Care Team Providers Care Textile Supervisor Name Role Phone ESTELA LOPEZ Primary Care Provider [phone] ESTELA LOPEZ Referring Provider [phone] Assessment Encounter Date Assessment Date Assessment LastModified by Organization Details LastModified Time 07/27/2025 07/27/2025 60-year-old male status post L4-5 decompression on May 07, 2025 with persistent pain as well as improving right sided cervical radiculopathy returns for additional management. Able to return to work. He currently has a variety of orthopedic problems. In addition to right knee arthritis being managed by Dr. Herrera he notes persistent left buttock pain. Buttock pain is actually worse than his knee pain. He has been partially successful with treatment with physical therapy and would like to continue this. Fortunately his right-sided cervical radiculopathy has significantly improved. Physical examination he has an antalgic gait and uses a cane. He has no gross neurologic deficit. We discussed options. He will try and continue PT. At some point he will have to choose between stoic forbearance or additional surgery. Is highly unlikely injections will afford durable relief. Will see him in 1 month. Not available 07/27/2025 10:18:47 Plan of Treatment Reminders Order Date Submit Date Provider Last Modified By Organization Details Last Modified Time Details Appointments FOLLOW UP 2024 01:15P Kandi Herrera MD Not available Not available Not available Lab None recorded. Referral orthopedi c physical therapist referral - Latonia fall Comments: 2024 025 [email or web address] Not available 07/27/2025 10:20:03 Procedures None recorded. Surgeries None recorded. Imaging None recorded. Medication Orders None recorded. Patient TargetsNo targets recorded. Patient Instructions Encounter Date Encounter Id Patient Instructions Last Modified By Organization Details Last Modified Time 07/27/2025 [id number] work status report* - Remain out of work until next visit in [place] Not available 08/03/2025 08:47:45 Reason for Referral Additional Comments: Referring Physician: Augusto Curtis, Orthopedic Surgery, Encounter Date: 07/27/2025 Problems Name Problem SNOMED Code Status Onset Date Resolution Date Notes Provider Name and Address Organization Details Recorded Time Problem 55636617 Active No known active problems Not Available [facility] 5 23:30:31 Osteoarth ritis of right knee joint 36077146068 9100 Active 2022 LEVON SANTOS PA-C [address], [place], [address] , [place] [facility] 4 10:32:13 Bilateral osteoarth ritis of knees 17300880631 9107 Active 2022 Not Available [facility] 3 11:40:46 Pain of right calf 53210844286 85470 Active 2022 LEVON MARTINEZ PA-C [address], [place], [address] , [place] [facility] 3 08:37:18 Osteoarth ritis of left knee joint 63950587959 9109 Active 2022 LEVON MARTINEZ PA-C [address], [place], [address] , [place] [facility] 3 06:42:48 Arthritis of knee 094342022 Active 2022 Bo Herrera MD [address], [place], [address] , [place] [facility] 3 09:27:54 Bilateral arthritis of knees 20678466448 31800 Active 2022 LEVON MARTINEZ PA-C [address], [place], [address] , [place] [facility] 3 08:28:12 Effusion of joint of right knee 01396990196 9104 Active 2022 LEVON MARTINEZ PA-C [address], [place], [address] , [place] [facility] 3 10:51:12 Effusion of joint 386990964 Active 2022 LEVON MARTINEZ PA-C [address], [place], [address] , [place] [facility] 3 10:52:27 History of raised blood lipids 809800690 Active 2023 History of hyperlipi demia Not Available [facility] 5 23:30:27 Tooth disorder 800704769 Active 2023 Poor dentition Not Available [facility] 5 23:30:27 History of hypertens ion 110223225 Active 2023 History of hypertens ion Not Available [facility] 5 23:30:28 Osteoarth ritis of left hip joint 89599825159 9108 Active 2023 Osteoarth ritis of left hip Not Available [facility] 5 23:30:29 At increased risk of apnea 004116889 Active 2023 At risk for sleep apnea Not Available [facility] 5 23:30:30 Smoker 82675114 Active 2023 Smoking Not Available [facility] 5 23:30:30 Arthritis of left knee joint 73028099607 50077 Active 2023 LEVON SANTOS PA-C [address], [place], [address] , [place] [facility] 4 10:29:56 History of left total knee replaceme nt 45472106914 45346 Active 2023 LEVON SANTOS PA-C [address], [place], [address] , [place] [facility] 4 10:58:44 Acute low back pain 379110993 Active [address], [place], [address] , [place] [facility] 5 14:59:41 Lumbar spondylos is 872549558 Active [address], [place], [address] , [place] [facility] 4 11:50:58 Sacroilia c disorder 857330782 Active 2023 TJ JEONG PA-C [address], [place], [address] , [place] [facility] 4 10:25:18 Lumbar radiculop athy 186431920 Active 2023 Lumbar radiculop athy Not Available [facility] 5 23:30:28 Spinal stenosis of lumbar region 17679877 Active [address], [place], [address] , [place] [facility] 4 10:00:10 Cervical radiculop athy 90875898 Active [address], [place], [address] , [place] [facility] 5 11:41:23 Postopera tive pain 183036911 Active [address], [place], [address] , [place] [facility] 5 10:38:51 History of excision of lamina of lumbar vertebra for decompres lg of spinal cord 410665769 Active [address], [place], [address] , [place] [facility] 11:04:40 Cervical spondylos is 348936376 Active 2024 Augusto Curtis MD [address], [place], [address] , [place] [facility] 11:03:52 Problem Notes None recorded. Procedures Surgical History Date Name Laterality Status Provider Name and Address Organization Details Recorded Time 025 Orthovisc Knee Inj completed Bo Herrera MD [address], [place], [address], [place] [facility] 07/10/2025 13:10:33 025 Orthovisc Knee Inj completed Bo Herrera MD [address] [place] [address], [address], [place] [facility] 07/03/2025 09:30:07 025 Orthovisc Knee Inj completed Bo Herrera MD [address], [place], [address], [place] [facility] 06/25/2025 11:28:47 025 LUMBAR SPINE SURGERY (SURG) completed Lindsay Gueavra [place] [facility] 05/08/2025 08:38:24 024 Euflexxa Knee Inj w/US completed LEVON SANTOS PA-C [address], [place], [address], [place] [facility] 08/20/2024 10:42:28 024 Euflexxa Knee Inj w/US completed LEVON SANTOS PA-C [address] [facility], [place], [address], [place] [facility] 08/13/2024 10:32:48 024 Euflexxa Knee Inj w/US completed LEVON SANTOS PA-C [address], [place], [address], [place] [facility] 08/06/2024 10:31:59 024 Euflexxa Knee Inj completed [facility] [place] [facility] 11/15/2023 09:57:04 023 Euflexxa Knee Inj completed BARBARA GUERRA PA-C [address], [place], [address], [place] [facility] 11/07/2023 16:05:37 023 Euflexxa Knee Inj completed LEVON MARTINEZ PA-C [address], [place], [address], [place] [facility] 10/31/2023 10:45:30 023 Knee Joint/Bursa Asp & Inj completed LEVON MARTINEZ PA-C [address], [place], [address], [place] [facility] 10/01/2023 09:18:27 023 Euflexxa Knee Inj completed LEVON MARTINEZ PA-C [address], [place], [address], [place] [facility] 04/30/2023 07:20:21 023 Euflexxa Knee Inj completed LEVON MARTINEZ PA-C [address], [place], [address], [place] [facility] 04/23/2023 11:07:50 023 Euflexxa Knee Inj completed LEVON MARTINEZ PA-C [address], [place], [address], [place] [facility] 04/16/2023 08:54:09 repair of musculotendinous cuff of shoulder completed Rosalina [place] [facility] 09/27/2023 10:40:22 Imaging Results None recorded. [...] and Address Organization Details Last Updated DateTime 07/27/2025 177.8 cm 26.8 kg/m2 63437.77 g Sandie Good [place] [facility] 07/27/2025 10:07:44 Social History Question Answer Notes LastModified by [employer] Details LastModified Time Tobacco Smoking Status Current Every Day Smoker Rosalina man, [place] [facility] 09/27/2023 10:23:41 How Much Tobacco Do You Smoke? 1 PPD Information not available 09/27/2023 Sex: Unknown Functional Status Question Answer Note LastModified by [employer] Details LastModified Time How many times per [...] ICD10 Code Diagnosis IMO Codes Diagnosis Note [id number] MD RUTHIE Mota [address] [address] 07/03/2025 08:54:31 07/03/2025 09:29:59 Osteoarthritis of right knee joint 8048106672 66358 M17.11 4635082 Osteoarthr itis of knee 871045282 M17.9 [id number] MD COLLINS Mota[address] [address] 07/10/2025 12:55:45 07/10/2025 13:13:49 Osteoarthritis of right knee joint 2839110987 85969 M17.11 5678378 Osteoarthr itis of knee 789924598 M17.9 [id number] Augusto Curtis MD [address] [address] 07/27/2025 10:00:23 07/27/2025 10:18:47 Arthritis of left knee joint 6614201145 603657 M13.862 Lumbar spondylosis 40887 0009 M47.816 Cervical spondylosis 387 536187 M47.812 27224 History of excision of lamina of lumbar vertebra for decompression of spinal cord 756816160 Z98.763 [id number] 05/06/2025: Bilateral L4-5 midline sparing laminectom ies and foraminoto mies. Health Concerns Section Related Observation LastModified by Organization Detai ls LastModified Time None Recorded Concern Status LastModified by Organization Details LastModified Time None Recorded Payers Encounter Date Sequence Insurance Name Policy Number Policy Conway Covered Member ID Conway Member ID Guarantor Name 07/27/2025 1 [facility] [id number] Leon Hathaway [id number] Leon Hathaway
--- OUTSIDE RECORDS SUMMARY | 2025-10-13 08:56 | XMS_ITS | Clinical Summary ---
Author Organization [facility] Address [address] [place] [address] Care Team Providers Care Scouring Machine Tender Name Role Phone Tomasz Winchester MD Primary Care Provider [phone] Allergies No known active allergies Medications Medication [...] this topic Medical Devices Implanted Type Area Liner Man Device Identifier Shelf Expiration Date Model / Serial / Lot Tibial Bearing Insert Cr Sz 5 10mm Str-[facility] [id number]-[id number] - [id number] Implanted:Qty: 1 on 12/13/2023 by Bo Herrera MD at [facility] Left: Knee [facility] 10/15/2028 5530-G-[id number] / / [id number] Knee Fem Bsplt W Pa Str-[facility] [id number] - [id number] Implanted:Qty: 1 on 12/13/2023 by Bo Herrera MD at [facility] and [facility] Left: Knee [facility] 08/13/2028 5517-F-[id number] / / [id number] Knee Bsplt [employer] Ti Sz [facility] [id number] - [id number] Implanted:Qty: 1 on 12/13/2023 by Bo Herrera MD at [facility] and [facility] Left: Knee [facility] 10/06/2028 5536-[id number] / / [id number] Advance Directives For more information, please contact: [phone] Latest Code Status on File Code Status [...] way: discussion with patient . Care Teams Scouring Machine Tender Relationship Specialty Start Date End Date Tomasz Winchester MD [address] [place] [address] PCP - General Internal Medicine 01/04/23
--- OUTSIDE RECORDS SUMMARY | 2025-10-13 08:56 | XMS_ITS | Encounter Summary ---
Author Organization [facility] Address [address] [place] [address] Care Team Providers Care Elderly Sitter Name Role Phone Tomasz Winchester MD Primary Care Provider [phone] Encounter Details Date Type Department Care Team (Latest Contact Info) Description 04/27/2025 Lab Requisition [facility] - Main Lab [address] [facility] [place] [phone] Tomasz Winchester MD [address] [place] [address] Essential (primary) hypertension; Mild intermittent asthma, uncomplicated; [...] AM EST Office Visit Orthopedic Surgery - [place] [address] [phone] Christiano Tijerina, DPM [address] [phone] documented as of this encounter Procedures Procedure Name Priority Date/Time Associated Diagnosis Comments CBC WITH AUTO DIFFERENTIAL Routine 04/27/2025 4:57 PM EDT Mild intermittent asthma, uncomplicated CBC AND DIFFERENTIAL Routine 04/27/2025 4:57 PM EDT Mild intermittent asthma, uncomplicated HEMOGLOBIN A1C Routine 04/27/2025 4:57 PM EDT Type 2 diabetes mellitus with hyperglycemia ([facility] V24, [facility] V28) BASIC METABOLIC PANEL Routine 04/27/2025 4:57 PM EDT Essential (primary) hypertension documented in this encounter Results * CBC auto differential (04/27/2025 4:57 PM EDT) WBC 7.6 4.8 - 10.8 K/mcL LAB HEMETOLOGY METHOD 04/28/2025 2:16 PM EDT [facility] RBC 4.70 4.50 - 5.50 M/mcL LAB HEMETOLOGY METHOD 04/28/2025 2:16 PM EDT [facility] Hemoglobin 14.5 13.5 - 17.5 g/dL LAB HEMETOLOGY METHOD 04/28/2025 2:16 PM EDT [facility] Hematocrit 43.7 42.0 - 54.0 % LAB HEMETOLOGY METHOD 04/28/2025 2:16 PM EDT [facility] MCV 93.4 79.0 - 98.0 FL LAB HEMETOLOGY METHOD 04/28/2025 2:16 PM EDT [facility] MCH 31.0 27.0 - 32.0 pcg LAB HEMETOLOGY METHOD 04/28/2025 2:16 PM EDT [facility] MCHC 33.2 32.0 - 37.0 g/dL LAB [facility]OLOG[facility] RDW 13.5 11.0 - 15.0 % LAB HEMETOLOGY METHOD 04/28/2025 2:16 PM EDT [facility] Platelets 204 130 - 400 K/mcL LAB HEMETOLOGY METHOD 04/28/2025 2:16 PM EDT [facility] MPV 10.8 7.0 - 11.0 FL LAB HEMETOLOGY [facility] NRBC 0.0 <1.0 % LAB HEMETOLOGY METHOD 04/28/2025 2:16 PM EDT [facility] NRBC Absolute 0.00 <0.10 K/mcL LAB HEMETOLOGY METHOD 04/28/2025 2:16 PM EDT [facility] Neutrophils Relative 53.9 % LAB HEMETOLOGY METHOD 04/28/2025 2:16 PM EDT [facility] Lymphocytes Relative 31.4 % LAB [facility]EMETOLOGY [facility] Monocytes Relative 8.2 % LAB HEMETOLOGY METHOD 04/28/2025 2:16 PM EDT [facility] Eosinophils Relative 5.3 % LAB HEMETOLOGY METHOD 04/28/2025 2:16 PM EDT [facility] Basophils Relative 0.8 % LAB HEMETOLOGY METHOD 04/28/2025 2:16 PM EDT [facility] Immature Granulocytes Relative 0.4 % LAB HEMETOLOGY METHOD 04/28/2025 2:16 PM EDT [facility] Neutrophils Absolute 4.10 1.50 - 7.00 K/mcL LAB HEMETOLOGY METHOD 04/28/2025 2:16 PM EDT [facility] Lymphocytes Absolute 2.38 1.00 - 5.00 K/mcL LAB HEMETOLOGY METHOD 04/28/2025 2:16 PM EDT [facility] Monocytes Absolute 0.62 0.20 - 1.00 K/mcL LAB HEMETOLOGY METHOD 04/28/2025 2:16 PM EDT [facility] Eosinophils Absolute 0.40 0.00 - 0.50 K/mcL LAB HEMETOLOGY METHOD 04/28/2025 2:16 PM EDT [facility] Basophils Absolute 0.06 0.00 - 0.20 K/mcL LAB HEMETOLOGY METHOD 04/28/2025 2:16 PM EDT [facility] Immature Granulocytes Absolute 0.03 0.00 - 0.03 K/mcL LAB HEMETOLOGY METHOD 04/28/2025 2:16 PM EDT [facility] Blood Venous blood specimen / Unknown 04/27/2025 4:57 PM EDT 04/28/2025 1:58 PM EDT us Tomasz Winchester MD LAB BLOOD ORDERABLES Final Res ult [facility] [address] [place] [address], * (ABNORMAL) Hemoglobin A1c (04/27/2025 4:57 PM EDT) [facility] Hemoglobin A1C 6.6(H) <6.5 % LAB CHEMISTRY METHOD 04/28/2025 9:51 PM EDT [facility] Mean Bld Glu Estim. 143 mg/dL LAB CHEMISTRY METHOD 04/28/2025 9:51 PM EDT [facility] Blood Venous blood specimen / Unknown 04/27/2025 4:57 PM EDT 04/28/2025 1:58 PM EDT us Tomasz Winchester MD LAB BLOOD ORDERABLES Final Res ult [facility] [address] [place] [address], [place] [phone] * (ABNORMAL) Basic metabolic panel (04/27/2025 4:57 PM EDT) [facility] Sodium 138 133 - 145 mmol/L LAB CHEMISTRY METHOD 04/28/2025 2:59 PM EDT [facility] Potassium 3.7 3.5 - 5.5 mmol/L LAB CHEMISTRY METHOD 04/28/2025 2:59 PM [facility] Chloride 105 96 - 110 mmol/L LAB CHEMISTRY METHOD 04/28/2025 2:59 PM [facility] CO2 29 21 - 32 mmol/L LAB CHEMISTRY METHOD 04/28/2025 2:59 PM T [facility] Anion Gap 4 3 - 11 LAB CHEMISTRY METHOD 04/28/2025 2:59 PM [facility] Glucose 98 70 - 100 mg/dL LAB CHEMISTRY METHOD 04/28/2025 2:59 PM [facility] BUN 18 5 - 25 mg/dL LAB CHEMISTRY METHOD 04/28/2025 2:59 PM [facility] Creatinine 0.61(L) 0.70 - 1.30 mg/dL LAB CHEMISTRY METHOD 04/28/2025 2:59 PM EDT [facility] eGFR 109 >=60 mL/min/1. 73m2 LAB CHEMISTRY METHOD 04/28/2025 2:59 PM EDT [facility] Comment:Calculation based on the Chronic Kidney Disease Epidemiology Collaboration (CKD-EPI) equation refit without adjustment for race. BUN/Creatinine Ratio 29.5 LAB CHEMISTRY METHOD 04/28/2025 2:59 PM EDT [facility] Calcium 9.2 8.5 - 10.5 mg/dL LAB CHEMISTRY METHOD 04/28/2025 2:59 PM EDT [facility] Blood Venous blood specimen / Unknown 04/27/2025 4:57 PM EDT 04/28/2025 1:58 PM EDT us Tomasz Winchester MD LAB BLOOD ORDERABLES Final Res ult [facility] [address] [place] [address], documented in this encounter Visit Diagnoses Diagnosis Essential (primary) hypertension Unspecified essential hypertension Mild intermittent asthma, uncomplicated Type 2 diabetes mellitus with hyperglycemia (CMS/HCC V24, CMS/HCC V28) documented in this encounter Care Teams Elderly Sitter Relationship Specialty Start Date End Date Tomasz Winchesetr MD [address] [place] [address] PCP - General 01/04/23 documented as of this encounter
--- OUTSIDE RECORDS SUMMARY | 2025-10-13 08:56 | XMS_ITS | Data Portability ---
Author Organization [place] [facility] Sara Londono [facility] Address [address] [place] [address] Care Team Providers [facility] Supervisor Name Role Phone ESTELA LOPEZ Primary Care Provider ESTELA LOPEZ Referring Provider Assessment Encounter Date Assessment Date Assessment LastModified by Organization Details LastModified Time 06/25/2025 06/25/2025 Patient is here for viscosupplementation injection for right knee osteoarthritis. This is a three series injection of Orthovisc. This is the 1st of three injections. Patient will return next week for second injection. Not available 06/25/2025 11:29:14 07/03/2025 07/03/2025 Patient is here for viscosupplementation injection for right knee osteoarthritis. This is a three series injection of OrthoVisc. This is the 2nd of three injections. Patient will return next week for the third injection. [email or web address] Not available 07/03/2025 09:30:33 07/10/2025 07/10/2025 Patient is here for viscosupplementation injection for right knee osteoarthritis. This is a three series injection of Orthovisc. This is the 3rd of three injections. Patient will return in 3 months with reevaluation at that time. Not available 07/10/2025 13:10:55 07/27/2025 07/27/2025 60-year-old male status post L4-5 [...] relief. Will see him in 1 month. [email or web address] Not available 07/27/2025 10:18:47 Plan of Treatment Reminders Order Date Submit Date Provider Last Modified By Organization Details Last Modified Time Details Appointments FOLLOW UP 2024 01:15P Kandi Herrera MD Not available Not available Not available Lab None recorded. Referral orthopedi c physical therapist referral - Latonia fall Comments: 2024 suad Not available 07/27/2025 10:20:03 Procedures None recorded. Surgeries None recorded. Imaging XR, lumbosacr al spine, 2 or 3 view 2024 025 [facility], [address], [facility], [place], [address], 08/25/2025 16:29:58 Medication Orders meloxicam 15 mg tablet 2024 025 JULIO CÉSAR [facility][id number], [address] [place], [id number], 08/25/2025 15:11:03 ORTHOVISC 30 mg/2 mL intra-art icular syringe 2024 025 [email or web address] [facility] #[id number], [address] [place], [id number], 07/10/2025 13:11:13 ORTHOVISC 30 mg/2 mL intra-art icular syringe 2024 025 [email or web address] [facility] #[id number], [address] [place], [id number], 07/03/2025 09:25:23 ORTHOVISC 30 mg/2 mL intra-art icular syringe 2024 025 [email or web address] [facility][id number], [address] [place], [id number], 06/25/2025 11:48:03 Patient TargetsNo targets recorded. Patient Instructions Encounter Date Encounter Id Patient Instructions Last Modified By Organization Details Last Modified Time 07/27/2025 [id number] work status report* - Remain out of work until next visit in [place] Not available 08/03/2025 08:47:45 Reason for Referral Additional Comments: Referring Physician: Augusto Curtis, Orthopedic Surgery, Encounter Date: 07/27/2025 Problems Name Problem SNOMED Code Status Onset Date Resolution Date Notes Provider Name and Address Organization Details Recorded Time Problem 45609634 Active No known active problems Not Available [facility] 5 23:30:31 Osteoarth ritis of right knee joint 35047943805 9100 Active 2022 LEVON SANTOS PA-C [address], [place], [address] , [place] [facility] 4 10:32:13 Bilateral osteoarth ritis of knees 00295372678 9107 Active 2022 Not Available [facility] 3 11:40:46 Pain of right calf 98217303579 98454 Active 2022 LEVON MARTINEZ PA-C [address], [place], [address] , [place] [facility] 3 08:37:18 Osteoarth ritis of left knee joint 08482707638 9109 Active 2022 LEVON MARTINEZ PA-C [address], [place], [address] , [place] [facility] 3 06:42:48 Arthritis of knee 773853131 Active 2022 Bo Herrera MD [address], [place], [place], [address] , [place] [facility] 3 09:27:54 Bilateral arthritis of knees 57856699866 89990 Active 2022 LEVON MARTINEZ PA-C [address], [place], [place], [address] , [place] [facility] 3 08:28:12 Effusion of joint of right knee 13333881051 9104 Active 2022 LEVON MARTINEZ PA-C [address], [place], [place], [address] , [place] [facility] 3 10:51:12 Effusion of joint 310350820 Active 2022 LEVON MARTINEZ PA-C [address], [place], [place], [address] , [place] [facility] 3 10:52:27 History of raised blood lipids 090360833 Active 2023 History of hyperlipi demia Not Available [facility] 5 23:30:27 Tooth disorder 910157620 Active 2023 Poor dentition Not Available [facility] 5 23:30:27 History of hypertens ion 297022531 Active 2023 History of hypertens ion Not Available [facility] 5 23:30:28 Osteoarth ritis of left hip joint 78069262895 9108 Active 2023 Osteoarth ritis of left hip Not Available [facility] 5 23:30:29 At increased risk of apnea 462317289 Active 2023 At risk for sleep apnea Not Available [facility] 5 23:30:30 Smoker 53744417 Active 2023 Smoking Not Available [facility] 5 23:30:30 Arthritis of left knee joint 33186770931 32034 Active 2023 LEVON SANTOS PA-C [address], [place], [address] , [place] [facility] 4 10:29:56 History of left total knee replaceme nt 71331222260 04653 Active 2023 LEVON SANTOS PA-C [address] [facility] [address], [place], [address] , [place] [facility] 4 10:58:44 Acute low back pain 066213114 Active 2023 Augusto Curtis MD [address], [place], [address] , [place] [facility] 5 14:59:41 Lumbar spondylos is 256288950 Active 2023 Augusto Curtis MD [address], [place], [address] , [place] [facility] 4 11:50:58 Sacroilia c disorder 453390941 Active 2023 TJ JEONG PA-C [address], [place], [address] , [place] [facility] 4 10:25:18 Lumbar radiculop athy 063648344 Active 2023 Lumbar radiculop athy Not Available [facility] 5 23:30:28 Spinal stenosis of lumbar region 08812400 Active 2023 Augusto Curtis MD [address], [place], [address] , [place] [facility] 4 10:00:10 Cervical radiculop athy 37127294 Active 2024 Augusto Curtis MD [address], [place], [address] , [place] [facility] 5 11:41:23 Postopera tive pain 137177552 Active 2024 TJ JEONG PA-C [address], [place], [address] , [place] [facility] 5 10:38:51 History of excision of lamina of lumbar vertebra for decompres lg of spinal cord 056393823 Active 2024 Augusto Curtis MD [address], [place], [address] , [place] [facility] 11:04:40 Cervical spondylos is 026445529 Active 2024 Augusto Curtis MD [address], [place], [address] , [place] [facility] 11:03:52 Problem Notes None recorded. Procedures Surgical History Date Name Laterality Status Provider Name and Address Organization Details Recorded Time 025 Orthovisc Knee Inj completed Bo Herrera MD [address], [place], [address], [place] [facility] 07/10/2025 13:10:33 025 Orthovisc Knee Inj completed Bo Herrera MD [address] [place] [address], [address], [place] [facility] 07/03/2025 09:30:07 025 Orthovisc Knee Inj completed Bo Herrera MD [address], [place], [address], [place] [facility] 06/25/2025 11:28:47 025 LUMBAR SPINE SURGERY (SURG) completed Lindsay Guevara [place] [facility] 05/08/2025 08:38:24 024 Euflexxa Knee Inj w/US completed LEVON SANTOS PA-C [address], [place], [address], [place] [facility] 08/20/2024 10:42:28 024 Euflexxa Knee Inj w/US completed LEVON SANTOS PA-C [address], [place], [address], [place] [facility] 08/13/2024 10:32:48 024 Euflexxa Knee Inj w/US completed LEVON SANTOS PA-C [address], [place], [address], [place] [facility] 08/06/2024 10:31:59 024 Euflexxa Knee Inj completed Rosalina Marin [place] [facility] 11/15/2023 09:57:04 023 Euflexxa Knee Inj completed BARBARA GUERRA PA-C [address], [place], [address], [place] [facility] 11/07/2023 16:05:37 023 Euflexxa Knee Inj completed LEVON MARTINEZ PA-C [address], [place], [address], [place] [facility] 10/31/2023 10:45:30 023 Knee Joint/Bursa Asp & Inj completed LEVON MARTINEZ PA-C [address], [place], [address], [place] [facility] 10/01/2023 09:18:27 023 Euflexxa Knee Inj completed LEVON MARTINEZ PA-C [address], [place], [address], [place] [facility] 04/30/2023 07:20:21 023 Euflexxa Knee Inj completed LEVON MARTINEZ PA-C [address], [place], [address], [place] [facility] 04/23/2023 11:07:50 023 Euflexxa Knee Inj completed LEVON MARTINEZ PA-C [address], [place], [address], [place] [facility] 04/16/2023 08:54:09 repair of musculotendinous cuff of shoulder completed Rosalina Nguyenes [place] - [facility] 09/27/2023 10:40:22 Imaging Results None recorded. [...] Not Available Vitals Date Recorded Body height Provider Name an d Address Organization Details Last Updated DateTime 06/25/[address] [place] [facility] 06/25/2025 11:15:20 Date Recorded Body height Body mass index (BMI) Body weight Provider Name and Address Organization Details Last Updated DateTime 07/03/2025 177.8 cm 26.1 kg/m2 [address] [place] [facility] 07/03/2025 09:09:55 Date Recorded Body height Body mass index (BMI) Body weight Provider Name and Address Organization Details Last Updated DateTime 07/10/2025 177.8 cm 26.1 kg/m2 03502.81 g Xiao Love [place] [facility] 07/10/2025 13:05:16 Date Recorded Body height Body mass index (BMI) Body weight Provider Name and Address Organization Details Last Updated DateTime 07/27/2025 177.8 cm 26.8 kg/m2 87746.77 g Sandie Good [facility] 07/27/2025 10:07:44 Date Recorded Body height Body mass index (BMI) Body weight Provider Name and Address Organization Details Last Updated DateTime 08/25/2025 177.8 cm 26.8 kg/m2 37193.77 g Sandie Good [facility], P 08/25/2025 14:55:49 Social History Question Answer Notes LastModified by [employer] Details LastModified Time Tobacco Smoking Status Current Every Day Smoker Rosalina Marin donovan, [facility], [facility] 09/27/2023 10:23:41 How Much Tobacco Do You Smoke? 1 PPD Information not available 09/27/2023 Sex: Unknown Functional Status Question Answer Note LastModified by [employer] Details LastModified Time How many times per [...] ICD10 Code Diagnosis IMO Codes Diagnosis Note [id number] MD RUTHIE Bentley [facility] [address] [place] [address] 02/20/2023 15:28:55 03/12/2023 20:12:36 Pain of bilateral knee joints 6186632609 43836 M25.561 M25.562 [id number] SANDRA NIXON [facility] [address] [place] [address] 04/16/2023 08:28:24 04/16/2023 09:11:47 Bilateral osteoarthritis of knees 3089169806 51742 M17.0 Osteoarthr itis of right knee joint 2602603021 23447 M17.11 [id number] SANDRA NIXON [facility] [address] [place] [address] 04/23/2023 13:01:02 04/23/2023 13:52:24 Osteoarthritis of right knee joint 5329640613 31240 M17.11 Bilateral osteoarthritis of knees 9329312155 35715 M17.0 [id number] SANDRA NIXON [facility] [address] [place] [address] 04/30/2023 08:12:28 04/30/2023 08:58:35 Osteoarthritis of right knee joint 8418457612 39927 M17.11 Bilateral osteoarthritis of knees 4982431934 18849 M17.0 Pain of right calf 50870 78415 078426 M79.661 [id number] SANDRA NIXON [facility] [address] [place] [address] 05/11/2023 10:38:03 05/11/2023 10:57:40 Bilateral osteoarthritis of knees 6531989666 31421 M17.0 Osteoarthr itis of right knee joint 0468265900 83334 M17.11 [id number] SANDRA NIXON [facility] [address] [place] [address] 06/12/2023 08:56:41 06/12/2023 09:13:10 Osteoarthritis of right knee joint 0326104846 22563 M17.11 Osteoarthr itis of left knee joint 8628673513 52912 M17.12 [id number] MD RUTHIE Mota [facility] [address] [place] [address] 06/22/2023 08:40:18 06/22/2023 09:37:48 Pain of left knee joint 3594750581 14175 M25.562 Osteoarthr itis of left knee joint 3557726608 14700 M17.12 Arthritis of knee 967083 002 M13.869 [id number] SANDRA NIXON [facility] [address] [address] 07/24/2023 10:54:05 07/24/2023 11:46:59 Bilateral arthritis of knees 4804270699 210316 M13.861 [id number] SANDRA NIXON [facility] [address] [address] 09/27/2023 09:55:10 09/27/2023 11:00:23 Osteoarthritis of right knee joint 3240960669 90458 M17.11 Effusion o f joint of right knee 8735640385 70954 M25.461 Right knee effusion Effusion of joint 070270 008 M25.40 [id number] SANDRA NIXON [facility] [address] [address] 10/10/2023 09:55:43 10/10/2023 10:38:36 Follow-up visit 781807663 Z09 [id number] SANDRA NIXON [facility] [address] [address] 10/31/2023 10:23:54 10/31/2023 10:57:26 Osteoarthritis of right knee joint 0585247084 13413 M17.11 [id number] SANDRA WELSH [address] [address] 11/07/2023 13:41:50 11/07/2023 14:38:34 Osteoarthritis of right knee joint 0057891100 33572 M17.11 [id number] SANDRA CONTRERAS [facility] [address] [place] [address] 11/15/2023 09:53:38 11/15/2023 10:33:11 Osteoarthritis of right knee joint 6245466602 37964 M17.11 [id number] SANDRA CONTRERAS [address] [address] 12/06/2023 08:19:51 12/06/2023 14:21:42 Arthritis of left knee joint 2108600229 469056 M13.862 [id number] SANDRA CONTRERAS [facility] [address] [place] [address] 12/27/2023 10:15:44 12/27/2023 11:13:58 History of left total knee replacement 0976888357 016680 Z96.652 [id number] MD RUTHIE Mota [facility] [address] [place] [address] 01/18/2024 09:08:22 01/18/2024 09:50:44 Aftercare 854894563 Z47.1 History of left total knee replacement 1326761386 446763 Z96.652 [id number] SANDRA CONTRERAS [facility] [address] [place] [address] 03/20/2024 09:46:35 03/20/2024 10:12:09 History of left total knee replacement 3511007182 954179 Z96.652 [id number] SANDRA CONTRERAS [facility] [address] [place] [address] 05/02/2024 09:10:54 05/02/2024 10:11:48 Osteoarthritis of right knee joint 0252248699 86696 M17.11 [id number] MD RUTHIE Alford [address] [address] 05/26/2024 15:45:24 05/26/2024 16:17:50 Acute low back pain 499380680 M54.50 Additional diagnosis detail: Acute bilateral low back pain without sciatica [id number] Augusto Curtis MD [address] [address] 06/09/2024 11:14:38 06/09/2024 11:57:31 Acute low back pain 055860666 M54.50 Additional diagnosis detail: Acute bilateral low back pain without sciatica History of left total knee replacement 9091856107 612816 Z96.652 Lumbar spondylosis 68503 0009 M47.816 [address] [address] 07/21/2024 11:17:50 07/21/2024 11:40:02 Acute low back pain 813966792 M54.50 Additional diagnosis detail: Acute bilateral low back pain without sciatica History of left total knee replacement 3778205981 798701 Z96.652 Lumbar spondylosis 49535 0009 M47.816 [id number] SANDRA CONTRERAS [address] [place] [address] 08/06/2024 10:09:25 08/06/2024 10:30:42 Osteoarthritis of right knee joint 5377068242 57687 M17.11 [id number] Osteoarthr itis of knee 971231090 M17.9 96108 SANDRA CONTRERAS [address] [place] [address] 08/13/2024 09:53:51 08/13/2024 10:32:35 Osteoarthritis of right knee joint 7104027531 80496 M17.11 4615828 [id number] SANDRA KOEHLER [address] [address] 08/18/2024 09:47:17 08/18/2024 10:22:19 Acute low back pain 924451750 M54.50 Additional diagnosis detail: Acute bilateral low back pain without sciatica History of left total knee replacement 3163485258 354432 Z96.652 Lumbar spondylosis 09165 0009 M47.816 Sacroiliac disorder 2027 33296 M53.3 593081 11563 [facility] [place] [address] 08/20/2024 10:31:21 08/20/2024 10:43:36 Osteoarthritis of right knee joint 8231522173 36403 M17.11 8382105 84846 MD RUTHIE Alford [address] [address] 09/15/2024 09:47:20 09/15/2024 10:03:14 Spinal stenosis of lumbar region 45436952 M48.062 1890843235 [id number] SANDRA CONTRERAS [facility] [address] [address] 10/23/2024 10:11:40 10/23/2024 11:23:45 Osteoarthritis of right knee joint 3444220111 78185 M17.11 [id number] [id number] MD RUTHIE Alford [address] [address] 10/27/2024 10:20:29 10/27/2024 10:39:11 Spinal stenosis of lumbar region 62474093 M48.062 0822002740 Return to full-time full duty work starting 11/04/2024 [id number] SANDRA CONTRERAS [facility] [address] [address] 12/18/2024 08:48:45 12/18/2024 09:15:26 History of left total knee replacement 0119395047 747628 Z96.652 [id number] MD RUTHIE Alford [address] [address] 02/09/2025 10:58:08 02/09/2025 11:42:09 Cervical radiculopathy 06474326 M54.12 436651 [id number] SANDRA CONTRERAS [facility] 299 [facility] [address] [place] [address] 02/19/2025 09:12:00 02/19/2025 09:36:20 Osteoarthritis of right knee joint 5173634940 24409 M17.11 [id number] [id number] MD RUTHIE Alford [address] [address] 2025 15:17:44 2025 16:23:14 Cervical radiculopathy 56330166 M54.12 299282 Spinal diego nosis of lumbar region 57170411 M48.062 [id number] Return to full-time full duty work starting 11/04/2024 [id number] MD RUTHIE Alford [address] [address] 05/18/2025 10:44:15 05/18/2025 11:09:45 History of excision of lamina of lumbar vertebra for decompression of spinal cord 567220150 Z98.206 [id number] 05/06/2025: Bilateral L4-5 midline sparing laminectom ies and foraminoto mies. [id number] MD RUTHIE Alford [address] [address] 06/15/2025 10:48:34 06/15/2025 11:05:23 History of excision of lamina of lumbar vertebra for decompression of spinal cord 238189271 Z98.998 [id number] 05/06/2025: Bilateral L4-5 midline sparing laminectom ies and foraminoto mies. Cervical radiculopathy 69683767 M54.12 679266 Cervical spondylosis 387 925500 M47.812 [id number] MD RUTHIE Mota [address] [address] 06/25/2025 10:28:30 06/25/2025 11:28:50 Osteoarthritis of right knee joint 5102428833 78446 M17.11 [id number] Osteoarthr itis of knee 334201874 M17.9 [id number] MD RUTHIE Mota [facility] 299 [facility] [address] [place] [address] 07/03/2025 08:54:31 07/03/2025 09:29:59 Osteoarthritis of right knee joint 3839885181 37225 M17.11 [id number] Osteoarthr itis of knee 141927686 M17.9 [id number] Bo Herrera MD [facility] [address] [facility] [address] [place] [address] 07/10/2025 12:55:45 07/10/2025 13:13:49 Osteoarthritis of right knee joint 3225616925 99036 M17.11 [id number] Osteoarthr itis of knee 869893798 M17.9 [id number] Augusto Curtis MD [facility] [address] [facility] [address] [place] [address] 07/27/2025 10:00:23 07/27/2025 10:18:47 Arthritis of left knee joint 6880335570 514965 M13.862 Lumbar spondylosis 12007 0009 M47.816 Cervical spondylosis 387 419312 M47.812 42027 History of excision of lamina of lumbar vertebra for decompression of spinal cord 217814359 Z98.070 [id number] 05/06/2025: Bilateral L4-5 midline sparing laminectom ies and foraminoto mies. [id number] Augusto Curtis MD [address] [place] [address] 08/25/2025 14:46:32 08/25/2025 15:20:54 History of operative procedure on lumbar spinal structure 135169629 Z98.890 [id number] 60-year-ol d male returns for 3 to [...] as-needed basis. Acute low back pain 2788 62377 M54.50 [id number] Additional diagnosis detail: Acute bilateral low back pain without sciatica History of excision of lamina of lumbar vertebra for decompression of spinal cord 433317945 Z98.173 [id number] 05/06/2025: Bilateral L4-5 midline sparing laminectom ies and foraminoto mies. Health Concerns Section Related Observation LastModified by Organization Detai ls LastModified Time None Recorded Concern Status LastModified by Organization Details LastModified Time None Recorded Advance Directives Directive None Recorded Payers Insurance Date Sequence Insurance Name Policy Number Policy Conway Covered Member ID Conway Member ID Guarantor Name 07/06/2025 1 [employer] (PPO) [id number] Leon Hathaway [id number] Leon Hathaway
--- OUTSIDE RECORDS SUMMARY | 2025-10-13 08:56 | XMS_ITS | Clinical Summary ---
Author Organization [facility] Address [address] [place] [address] Phone Care Team Providers Care Field Logistics Coordinator Name Role Phone Tomasz Winchester MD Primary Care Provider [phone] Allergies No known active allergies Medications losartan-hydroCHLOR Othiazide (HYZAAR) 100-25 mg per tablet Take 1 tablet by mouth 1 (one) time each day. 3 Active turmeric/turmeric ext/pepr ext (turmeric-turmeric ext-pepper) 500-3 mg capsule Take 1 tablet by mouth 1 (one) time each day. Active nicotine (NICODERM CQ) 21 mg/24 hr APPLY 1 PATCH TOPICALLY ONCE DAILY Active rosuvastatin (CRESTOR) 10 mg tablet Take [...] by mouth 2 (two) times a day with meals. Active meloxicam (MOBIC) 15 mg tablet 5 Active methocarbamoL (ROBAXIN) 750 mg tablet Take 1 tablet 4 times a day by oral route as needed. 5 Active tiZANidine (ZANAFLEX) 4 mg tablet TAKE 1 TABLET BY MOUTH EVERY NIGHT AT BEDTIME NEEDED FOR PAIN OR SPASM 5 Active gabapentin (NEURONTIN) 300 mg capsuleIndications: Lumbar radiculopathy,Lumba r postlaminectomy syndrome Take 1 capsule (300 mg total) by mouth 3 (three) times a day. 90 capsule 2 5 Active Active Problems Problem Noted Date Diagnosed Date Lumbar radiculopathy 09/22/2025 Lumbar postlaminectomy syndrome 09/22/2025 Encounters Date Type Department Care Team Description 09/22/2025 3:30 PM EST Office Visit [facility] [address] [place] [address] Audrey Rosenberg MD Lumbar radiculopathy (Primary Dx); Lumbar postlaminectomy syndrome 09/06/2025 9:54 AM EDT - 09/06/2025 11:59 PM EDT Hospital Encounter [facility] MRI [address] [place] [id number] Discharge Disposition: Home or Self Care 08/27/2025 11:00 AM EDT Office Visit [facility] [address] [place] [address] Audrey Rosenberg MD Lumbar radiculopathy (Primary Dx); Lumbar postlaminectomy syndrome 04/27/2025 Lab Requisition [facility] - Main Lab [address] [facility] [place] [phone] Tomasz Winchester MD Essential (primary) hypertension; Type 2 diabetes mellitus without complications (CMS/HCC V24, CMS/HCC V28); Mild intermittent asthma, uncomplicated; Type 2 diabetes mellitus with hyperglycemia (CMS/HCC V24, CMS/HCC V28) from Last 3 Months Surgical History [...] Osteoarthritis DX:Osteoarthriti s Periodontitis DX:Periodontitis ;COMMENT:Deep cleaning 12112/2022, ABX Tx Colon polyp Family History Medical [...] 1 43.9 Started: 1981 Smokeless Tobacco: Never Tobacco Cessation:Ready [...] Date Record ed Physical Abuse Unrecognized value 05/07/2025 Verbal Abuse Unrecognized value 05/07/2025 Sex and Gender Information Value Date Recorded Sex Assigned at Male 09/17/2024 12:40 PM EST Legal Sex Male 2:57 AM EST Gender Identity Male 09/16/2024 9:02 AM EST Sexual Orientation Straight 09/17/2024 12 :40 PM EST Obstetrics History Last Filed Vital Signs Vital Sign Reading Time Taken Comments Blood Pressure 147/92 09/22/2025 3:21 PM EST Pulse 74 09/22/2025 3:21 PM EST Temperature 36.1 C (97 F) 05/07/2025 12:30 PM EDT Respiratory Rate 10 05/07/2025 2:45 PM EDT Oxygen Saturation 97% 05/07/2025 2:45 PM EDT Inhaled Oxygen Concentration - - Weight 86.4 kg (190 lb 6.4 oz) 09/22/2025 2:53 P M EST Height 180.3 cm (5' 11 ) 09/22/2025 2:53 PM EST Body Mass Index 26.56 09/22/2025 2:53 PM EST Plan of Treatment Upcoming Encounters Date Type Department Care Team (Late st Contact Info) Description 12/07/2025 10:00 AM EST Office Visit Orthopedic Surgery - [place] [address] [address] Christiano Tijerina, DPM [address] [address] Health Maintenance Due Date Last Done Comments Colorectal Cancer Screening: Colonoscopy 1963 Diabetes: Annual Foot Exam 1973 Diabetes: Annual Retina Eye Exam 1973 DTaP,Tdap,and Td Vaccines (1 - Tdap) 1982 Pneumococcal Vaccine: 50+ Years (1 of 2 - PCV) 1982 RSV Immunization Adult Patients (1 - Risk 50-74 years 1-dose series) 2013 HIV Screening 10/15/2022 Hepatitis C Screening 10/15/2022 Lung Cancer Screening (Low Dose CT) 10/15/2022 Depression Screening 11/12/2024 Social Influencers of Health Screening 09/23/2025 09/23/2024 Diabetes: Blood Sugar Control Test (HGBA1C) 02/15/2026 08/17/2025, 04/27/2025, 03/12/2025, Additional history exists Diabetes: Annual Urine Albumin-Creatinine Ratio (uACR) 03/12/2026 03/12/2025 Diabetes: Annual GFR (Glomerular Filtration Rate) 08/17/2026 08/17/2025, 04/27/2025, 03/12/2025, Additional history exists Hypertension/CHF/CAD Annual BMP Blood Test 08/17/2026 08/17/2025, 04/27/2025, 03/12/2025, Additional history exists Cholesterol Screening (Lipid Panel) 08/17/2030 08/17/2025, 03/12/2025 Zoster Vaccines Completed 01/19/2024, 09/12, 07/15/2020 COVID-19 Vaccine Completed 07/24/2025, 04/2024, 11/13/2023, Additional history exists Influenza Vaccine Completed 07/24/2025, , 09/18/2023, Additional history exists HIB Vaccines Aged Out [...] this topic Medical Devices Implanted Type Area Fur Tailor Device Identifier Shelf Expiration Date Model / Serial / Lot Surgiflo Hemostatic Matrix - S000 - [id number] Implanted:Qty: 1 on 05/07/2025 by Augusto Curtis MD at [facility] Hemostasis N/A: Spine Lumbar [employer] 01/02/2027 2991 / 000 / [id number] Tibial Bearing Insert Cr Sz 5 10mm Stry-How [id number] Implanted:Qty: 1 on 12/13/2023 by Bo Herrera MD Left: Knee [employer] 10/15/2028 5530-G-51 0-E / / [id number] Knee Fem Bsplt W Pa Stry-How [id number] Implanted:Qty: 1 on 12/13/2023 by Bo Herrera MD Left: Knee [employer] 08/13/2028 5517-F-50 / / [id number] Knee Bsplt Triathlon Ti Sz 5 Stry-How [id number] Implanted:Qty: 1 on 12/13/2023 by Bo Herrera MD Left: Knee [employer] 10/06/2028 5536-B-50 0 / / [id number] Procedures Procedure Name Priority Date/Time Associated Diagnosis Comments MR LUMBAR SPINE WO AND W CONTRAST Routine 09/06/2025 11:00 AM EDT Lumbar radiculopathy Lumbar postlaminectomy syndrome MR LUMBAR SPINE WO AND W CONTRAST Routine 09/06/2025 10:21 AM EDT CBC WITH AUTO DIFFERENTIAL Routine 08/17/2025 8:56 AM EDT Mild intermittent asthma, uncomplicated HEMOGLOBIN A1C Routine 08/17/2025 8:56 AM EDT Type 2 diabetes mellitus with hyperglycemia (CMS/[facility] V24, CMS/[facility] V28) CBC AND DIFFERENTIAL Routine 08/17/2025 8:56 AM EDT Mild intermittent asthma, uncomplicated THYROID STIMULATING HORMONE Routine 08/17/2025 8:53 AM EDT Essential hypertension, malignant Routine general medical examination at a health care facility Hyperlipidemia Senile arthritis Postsurgical hypothyroidism SEDIMENTATION RATE Routine 08/17/2025 8: 53 AM EDT Essential hypertension, malignant Routine general medical examination at a health care facility Hyperlipidemia Senile arthritis Postsurgical hypothyroidism LIPID PANEL WITH REFLEX TO DIRECT LDL Routine 08/17/2025 8:53 AM EDT Essential hypertension, malignant Routine general medical examination at a health care facility Hyperlipidemia Senile arthritis Postsurgical hypothyroidism COMPREHENSIVE METABOLIC PANEL Routine 08/17/2025 8:53 AM EDT Essential hypertension, malignant Routine general medical examination at a health care facility Hyperlipidemia Senile arthritis Postsurgical hypothyroidism MICROALBUMIN CREATININE URINE RATIO Routine 03/12/2025 9:18 AM EDT Anemia, unspecified Encounter for general adult medical examination with abnormal findings Hyperlipemia Routine general medical examination at a health care facility Blood glucose elevated Special screening for malignant neoplasm of prostate Senile arthritis Urinary frequency Fatigue 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 Anatomical Region Laterality Modality L-spine, Spine Magnetic Resonan ce 09/10/2025 3:06 PM EDT Impressions 09/10/2025 3:11 PM EDT Interval left laminectomy at L4-5 with decreased, moderate spinal canal stenosis. Increased severe left foraminal stenosis and unchanged severe effacement of the left subarticular zone at L4-5. Increased, severe spinal canal stenosis at L3-4. Unchanged moderate spinal canal stenosis at L2-3. -------- FINAL REPORT -------- Dictated By: TOMASZ HILLS Dictated Date: 09/10/2025 15:06 ET Assigned Physician: TOMASZ HILLS Reviewed and Electronically Signed By: TOMASZ HILLS Signed Date: 09/10/2025 15:11 ET Workstation ID: [id number] Transcribed By: Self Edit Transcribed Date: 09/10/2025 15:06 ET Narrative 09/10/2025 3:11 PM EDT PROCEDURE: Lumbar spine MRI INDICATION: Low back pain TECHNIQUE: Multiplanar, multisequence MRI of the Lumbar spine without and with contrast. 17 mL Dotarem injected intravenously from a 20 mL vial with the remainder discarded. COMPARISON: 08/03/2024 FINDINGS: Straightening of the normal lumbar lordosis with mild anterolisthesis at L2-3, similar compared to prior. Levoconvex lumbar curvature is also unchanged. No fracture or suspicious marrow replacing lesion. Multilevel degenerative loss of normal disc height and signal with associated degenerative discogenic endplate change, most pronounced at L3-4 and L4-5. Advanced type I Modic changes are seen along the left aspect of L4-5, increased compared to prior. Increased stress reaction within the left L4 and L5 pedicles. Multilevel lumbar facet arthritis, most pronounced on the left at L3-4 and L4-5 as well as on the right at L2-3 and L3-4.. Conus medullaris terminates at T12. No epidural collection or mass is seen within the spinal canal. No abnormal enhancement within the spinal canal. Paraspinal muscles are normal. Visualized intra-abdominal and pelvic structures are normal. Findings by level: T12-L1: Diffuse disc bulge. No foraminal or spinal canal stenosis. L1-2: Diffuse disc bulge. No foraminal or spinal canal stenosis. L2-3: Bilateral facet arthropathy and ligamentum flavum thickening. Diffuse disc bulge, eccentric to the right. Moderate right and mild left foraminal stenosis. Moderate spinal canal stenosis. Findings are similar compared to prior. L3-4: Bilateral facet arthropathy with ligamentum flavum thickening. Diffuse disc bulge, increased from prior. Moderate foraminal stenosis bilaterally, unchanged. Increased, severe spinal canal stenosis. L4-5: Bilateral facet arthropathy. Interval left laminectomy. Decreased, moderate spinal canal stenosis. Diffuse disc bulge with increased, severe left and unchanged moderate right foraminal stenosis. Severe effacement of the left subarticular zone is unchanged. L5-S1: Bilateral facet arthropathy. No focal disc protrusion. No foraminal or spinal canal stenosis. Procedure Note Tomasz Hills MD - 09/10/2025 PROCEDURE: Lumbar spine MRI INDICATION: Low back pain TECHNIQUE: Multiplanar, multisequence MRI of the Lumbar spine without andwith contrast. 17 mL Dotarem injected intravenously from a 20 mL vialwith the remainder discarded. COMPARISON: 08/03/2024 FINDINGS: Straightening of the normal lumbar lordosis with mild anterolisthesis atL2-3, similar compared to prior. Levoconvex lumbar curvature is alsounchanged. No fracture or suspicious marrow replacing lesion. Multilevel degenerative loss of normal disc height and signal withassociated degenerative discogenic endplate change, most pronounced atL3-4 and L4-5. Advanced type I Modic changes are seen along the leftaspect of L4-5, increased compared to prior. Increased stress reactionwithin the left L4 and L5 pedicles. Multilevel lumbar facet arthritis, most pronounced on the left at L3-4 andL4-5 as well as on the right at L2-3 and L3-4.. Conus medullaris terminates at T12. No epidural collection or mass isseen within the spinal canal. No abnormal enhancement within the spinalcanal. Paraspinal muscles are normal. Visualized intra-abdominal and pelvicstructures are normal. Findings by level: T12-L1: Diffuse disc bulge. No foraminal or spinal canal stenosis. L1-2: Diffuse disc bulge. No foraminal or spinal canal stenosis. L2-3: Bilateral facet arthropathy and ligamentum flavum thickening.Diffuse disc bulge, eccentric to the right. Moderate right and mild leftforaminal stenosis. Moderate spinal canal stenosis. Findings are similarcompared to prior. L3-4: Bilateral facet arthropathy with ligamentum flavum thickening.Diffuse disc bulge, increased from prior. Moderate foraminal stenosisbilaterally, unchanged. Increased, severe spinal canal stenosis. L4-5: Bilateral facet arthropathy. Interval left laminectomy. Decreased,moderate spinal canal stenosis. Diffuse disc bulge with increased, severeleft and unchanged moderate right foraminal stenosis. Severe effacementof the left subarticular zone is unchanged. L5-S1: Bilateral facet arthropathy. No focal disc protrusion. Noforaminal or spinal canal stenosis. IMPRESSION: Interval left laminectomy at L4-5 with decreased, moderate spinal canalstenosis. Increased severe left foraminal stenosis and unchanged severeeffacement of the left subarticular zone at L4-5. Increased, severe spinal canal stenosis at L3-4. Unchanged moderate spinal canal stenosis at L2-3. -------- FINAL REPORT -------- Dictated By: TOMASZ HILLS Dictated Date: 09/10/2025 15:06 ET Assigned Physician: TOMASZ HILLS Reviewed and Electronically Signed By: TOMASZ HILLS Signed Date: 09/10/2025 15:11 ET Workstation ID: [id number] Transcribed By: Self Edit Transcribed Date: 09/10/2025 15:06 ET us Audrey Rosenberg MD IM MRI PROCEDURES Final Result * CBC auto differential (08/17/2025 8:56 AM EDT) WBC 6.5 4.8 - 10.8 K/[facility] LAB HEMETOLOGY METHOD 08/17/2025 9:22 AM EDT [facility] RBC 4.80 4.50 - 5.50 M/[facility] LAB HEMETOLOGY METHOD 08/17/2025 9:22 AM [facility] Hemoglobin 14.7 13.5 - 17.5 g/dL LAB HEMETOLOGY METHOD 08/17/2025 9:22 AM [facility] Hematocrit 43.7 42.0 - 54.0 % LAB HEMETOLOGY METHOD 08/17/2025 9:22 AM [facility] MCV 91.6 79.0 - 98.0 FL LAB HEMETOLOGY METHOD 08/17/2025 9:22 AM [facility] MCH 30.8 27.0 - 32.0 pcg LAB HEMETOLOGY METHOD 08/17/2025 9:22 AM [facility] MCHC 33.6 32.0 - 37.0 g/dL LAB HEMETOLOGY METHOD 08/17/2025 9:22 AM [facility] RDW 12.6 11.0 - 15.0 % LAB HEMETOLOGY METHOD 08/17/2025 9:22 AM [facility] Platelets 209 130 - 400 K/mcL LAB HEMETOLOGY METHOD 08/17/2025 9:22 AM [facility] MPV 10.1 7.0 - 11.0 FL LAB HEMETOLOGY METHOD 08/17/2025 9:22 AM [facility] NRBC 0.0 <1.0 % LAB HEMETOLOGY METHOD 08/17/2025 9:22 AM [facility] NRBC Absolute 0.00 <0.10 K/mcL LAB HEMETOLOGY METHOD 08/17/2025 9:22 AM [facility] Neutrophils Relative 48.8 % LAB HEMETOLOGY METHOD 08/17/2025 9:22 AM [facility] Lymphocytes Relative 35.5 % LAB HEMETOLOGY METHOD 08/17/2025 9:22 AM [facility] Monocytes Relative 8.7 % LAB HEMETOLOGY METHOD 08/17/2025 9:22 AM EDT [facility] Eosinophils Relative 5.6 % LAB HEMETOLOGY METHOD [facility]/17[facility]25 [facility] Basophils Relative 0.9 % LAB HEMETOLOGY METHOD 08/17/2025 9:22 AM [facility] Immature Granulocytes Relative 0.5 % LAB HEMETOLOGY METHOD 08/17/2025 9:22 AM EDT [facility] Neutrophils Absolute 3.16 1.50 - 7.00 K/mcL LAB HEMETOLOGY METHOD 08/17/2025 9:22 AM EDT [facility] Lymphocytes Absolute 2.30 1.00 - 5.00 K/mcL LAB HEMETOLOGY METHOD 08/17/2025 9:22 AM [facility] Monocytes Absolute 0.56 0.20 - 1.00 K/mcL LAB HEMETOLOGY METHOD 08/17/2025 9:22 AM EDT [facility] Eosinophils Absolute 0.36 0.00 - 0.50 K/mcL LAB HEMETOLOGY METHOD 08/17/2025 9:22 AM [facility] Basophils Absolute 0.06 0.00 - 0.20 K/mcL LAB HEMETOLOGY METHOD 08/17/2025 9:22 AM [facility] Immature Granulocytes Absolute 0.03 0.00 - 0.03 K/mcL LAB HEMETOLOGY METHOD 08/17/2025 9:22 AM T [facility] Blood Venous blood specimen / Unknown Venipuncture / Unknown 08/17/2025 8:56 AM EDT 08/17/2025 9:11 AM EDT us Tomasz Winchester MD LAB BLOOD ORDERABLES Final Res ult [facility] [address] [place] [address], [place] [phone] * (ABNORMAL) Hemoglobin A1c (08/17/2025 8:56 AM EDT) Hemoglobin A1C 6.5(H) <6.5 % LAB CHEMISTRY METHOD 08/17/2025 1:29 PM EDT [facility] Mean Bld Glu Estim. 140 mg/dL LAB CHEMISTRY METHOD 08/17/2025 1:29 PM EDT [facility] Blood Venous blood specimen / Unknown Venipuncture / Unknown 08/17/2025 8:56 AM EDT 08/17/2025 9:11 AM EDT Tomasz Winchester MD LAB BLOOD ORDERABLES Final Res ult [facility] [address] [place] [address], [place] [phone] * Lipid panel with reflex to direct LDL (08/17/2025 8:53 AM EDT) [facility] Cholesterol 153 0 - 200 mg/dL LAB CHEMISTRY METHOD 08/17/2025 9:45 AM EDT [facility] Triglycerides 71 0 - 150 mg/dL LAB CHEMISTRY METHOD 08/17/2025 9:45 AM EDT [facility] HDL 48 >=40 mg/dL LAB CHEMISTRY METHOD 08/17/2025 9:45 AM EDT [facility] LDL Calculated 91 0 - 100 mg/dL LAB CHEMISTRY METHOD 08/17/2025 9:45 AM EDT [facility] Comment:Estimated LDL Calcul ated using equation: Total cholesterol - HDL cholesterol - (Triglycerides/5) VLDL Cholesterol John 14.2 mg/dL LAB CHEMISTRY METHOD 08/17/2025 9:45 AM EDT [facility] Non HDL Chol. (LDL+VLDL) 105 <145 mg/dL LAB CHEMISTRY METHOD 08/17/2025 9:45 AM EDT [facility] Chol/HDL Ratio 3.2 0.0 - 4.4 LAB CHEMISTRY METHOD 08/17/2025 9:45 AM EDT [facility] Blood Venous blood specimen / Unknown Venipuncture / Unknown 08/17/2025 8:53 AM EDT 08/17/2025 9:10 AM EDT Tomasz Winchester MD LAB BLOOD ORDERABLES Final Res ult Performing Organization Address City/[facility]/ZIP Co de Phone Number [facility] [address] [place] [address], [place] [phone] * Sedimentation rate (08/17/2025 8:53 AM EDT) Sed Rate 12 0 - 20 mm/hr LAB HEMETOLOGY METHOD 08/17/2025 9:19 AM EDT [facility] Blood Venous blood specimen / Unknown Venipuncture / Unknown 08/17/2025 8:53 AM EDT 08/17/2025 9:11 AM EDT us Tomasz Winchester MD LAB BLOOD ORDERABLES Final Res ult Performing Organization Address [facility]/ZIP Co de Phone Number [facility] [address] [place] [address], [place] [phone] * Thyroid stimulating hormone (08/17/2025 8:53 AM EDT) TSH 0.89 0.40 - 4.00 mcIU/mL LAB CHEMISTRY METHOD 08/17/2025 10:48 AM EDT [facility] Blood Venous blood specimen / Unknown Venipuncture / Unknown 08/17/2025 8:53 AM EDT 08/17/2025 9:10 AM EDT us Tomasz Winchester MD LAB BLOOD ORDERABLES Final Res ult [facility] [address] [place] [address], * (ABNORMAL) Comprehensive metabolic panel (08/17/2025 8:53 AM EDT) Sodium 139 133 - 145 mmol/L LAB CHEMISTRY METHOD 08/17/2025 9:45 AM EDT [facility] Potassium 3.5 3.5 - 5.5 mmol/L LAB CHEMISTRY METHOD 08/17/2025 9:45 AM [facility] Chloride 104 96 - 110 mmol/L LAB CHEMISTRY METHOD 08/17/2025 9:45 AM [facility] CO2 29 21 - 32 mmol/L LAB CHEMISTRY METHOD 08/17/2025 9:45 AM [facility] Anion Gap 6 3 - 11 LAB CHEMISTRY METHOD 08/17/2025 9:45 AM [facility] Glucose 135(H) 70 - 100 mg/dL LAB CHEMISTRY METHOD 08/17/2025 9:45 AM [facility] BUN 12 5 - 25 mg/dL LAB CHEMISTRY METHOD 08/17/2025 9:45 AM [facility] Creatinine 0.56(L) 0.70 - 1.30 mg/dL LAB CHEMISTRY METHOD 08/17/2025 9:45 AM [facility] eGFR 111 >=60 mL/min/1. 73m2 LAB CHEMISTRY METHOD 08/17/2025 9:45 AM [facility] Comment:Calculation based on the Chronic Kidney Disease Epidemiology Collaboration (CKD-EPI) equation refit without adjustment for race. BUN/Creatinine Ratio 21.4 LAB CHEMISTRY METHOD 08/17/2025 9:45 AM [facility] Calcium 9.5 8.5 - 10.5 mg/dL LAB CHEMISTRY METHOD 08/17/2025 9:45 AM [facility] AST (SGOT) 19 10 - 42 unit/L LAB CHEMISTRY METHOD 08/17/2025 9:45 AM EDT [facility] ALT (SGPT) 27 10 - 60 unit/L LAB CHEMISTRY METHOD 08/17/2025 9:45 AM EDT [facility] Alkaline Phosphatase 79 42 - 121 unit/L LAB CHEMISTRY METHOD 08/17/2025 9:45 AM EDT [facility] Total Protein 6.8 6.0 - 8.0 g/dL LAB CHEMISTRY METHOD 08/17/2025 9:45 AM EDT [facility] Albumin 4.1 3.2 - 5.0 g/dL LAB CHEMISTRY METHOD 08/17/2025 9:45 AM [facility] Total Bilirubin 0.5 0.0 - 1.4 mg/dL LAB CHEMISTRY METHOD 08/17/2025 9:45 AM T [facility] Blood Venous blood specimen / Unknown Venipuncture / Unknown 08/17/2025 8:53 AM EDT 08/17/2025 9:10 AM EDT us Tomasz Winchester MD LAB BLOOD ORDERABLES Final Res ult [facility] [address] [place] [address], * (ABNORMAL) Microalbumin creatinine urine ratio (03/12/2025 9:18 AM EDT) Creatinine, Urine 77.0 mg/dL LAB CHEMISTRY METHOD 03/12/2025 12:17 PM EDT [facility] Microalb, Ur 22.8 0.0 - 29.0 mg/L LAB CHEMISTRY METHOD 03/12/2025 12:[facility] Microalb/Creat Ratio 30(H) <30 mg/g creat LAB CHEMISTRY METHOD 03/12/2025 12:17 PM EDT [facility] Urine Urine specimen obtained by clean catch procedure / Unknown Non-blood Collection / Unknown 03/12/2025 9:18 AM EDT 03/12/2025 11:00 AM EDT Tomasz Winchester MD LAB URINE ORDERABLES Final Res ult [facility] [address] [place] [address], from Last 3 Months or Most Recently Relevant to Health Maintenance Insurance [facility] Advance Directives Documents on File Type Date Recorded Patient Authorization Manager Expl anation Advance Directives and Living Will [...] currently active code status orders. Care Teams Field Logistics Coordinator Relationship Specialty Start Date End Date Tomasz Winchester MD [address] [place] [address] PCP - General 01/04/23
== END 2025-10-13 09:20 | disposition home or self-care (01) ==
LOC: HO.RHES 08:47
PROVIDERS: PCP Internal Medicine; Visit Provider Internal Medicine Rheumatology
DX: M19.041 Primary osteoarthritis, right hand (principal); M19.042 Primary osteoarthritis, left hand; Z79.1 Long term (current) use of non-steroidal anti-inflammatories (NSAID)
CPT/HCPCS: 20600; 99213

== ENCOUNTER → 2025-10-13 08:47 | Outpatient (BNVA) | payer BC, SELFPAY | PROVIDERS: PCP Internal Medicine; Visit Provider Internal Medicine Rheumatology | DX: M19.041 Primary osteoarthritis, right hand (principal); M19.042 Primary osteoarthritis, left hand; Z79.1 Long term (current) use of non-steroidal anti-inflammatories (NSAID) | CPT/HCPCS: 20600; J2003; J3301 ==